=== PATIENT | female | born 1930 | race Caucasian/White ===

== ENCOUNTER 2016-12-18 11:48 | Inpatient (IN) | payer MEDICARE ==
[~2016-12-18] VITALS: Ht 170.2 cm; Wt 83.0 kg
[2016-12-18] VITALS (8 sets, daily range): BP systolic 87–173; BP diastolic 51–72; PULSE 61–71; RESP 16–20; TEMP 97.7–98; O2SAT 94–99
[~2016-12-18 11:48] MED LIST: ECASA PO; LEVO125T3 PO; LISI-363 PO; LOMO PO; OCUV PO; PRO-CAP PO; PROT40TA PO; REST0.05 OU; ROSU40 PO; VENL37.5 PO
[2016-12-18] MEDS ORDERED: SODIUM CHLORID 0.9% 500 ML INJ 500 ML IV ONE (12:00)
[2016-12-18] MEDS ORDERED: SODIUM CHLORIDE 0.9% FLUSH 10 ML FLUSH IVF PRN (12:00)
--- NOTE | 2016-12-18 12:06 | PD ---
HPI Chief Complaint: syncopal episode Time Seen by Provider: 12:02 Travel History International Travel<30 days: No Contact w/Intl Traveler<30days: No Traveled to known affect area: No History of Present Illness HPI 86-year-old female presents to the emergency department via EMS status post syncopal episode this morning. Patient states she woke this morning and had to go to the bathroom and when she went up to go to felt weak and dizzy and reportedly had a few second episode of nonresponsiveness. Patient states as long as she is laying flat she feels fine. Patient has a history of TIA and pacemaker. Patient denies pain, fever, chills, or other constitutional symptoms currently. Patient states she felt somewhat weak yesterday afternoon, and slept well through the night. She states she tries to sit up or stand up she feels weak and lightheaded. He is currently having no symptoms laying in the bed. She has no known drug allergies. PFSH Past Medical History Arthritis: Yes (L ANKLE FLARE UP 2 WKS AGO) Blood Disorders: No Anxiety: No Depression: No Cancer: No Cardiovascular Problems: Yes (STENTS) High Cholesterol: Yes Chemotherapy: No Congestive Heart Failure: No Diminished Hearing: No Endocrine: Yes Gastrointestinal Disorders: No Genitourinary: No Immune Disorder: No Musculoskeletal: Yes Neurologic: No Psychiatric: No Respiratory: No Radiation Therapy: No Thyroid Disease: Yes (HYPOTHYROIDISM) Menopausal: Yes Past Surgical History Abdominal Surgery: No AICD: No Cardiac Surgery: No Ear Surgery: No Endocrine Surgery: No Eye Surgery: No Genitourinary Surgery: No Gynecologic Surgery: No Joint Replacement: No Oral Surgery: No Pacemaker: No Thoracic Surgery: No Social History Alcohol Use: Yes (1-2 DRINKS DAILY) Tobacco Use: No Substance Use: No Allergies-Medications (Allergen,Severity, Reaction): Coded Allergies: No Known Allergies (Verified , 12/18/16) Reported Meds & Prescriptions Reported Meds & Active Scripts Active Reported Eliquis (Apixaban) 5 Mg Tab 5 Mg PO BID Probiotic (Lactobacillus Acidophilus) 1 Cap Cap 1 Cap PO DAILY Metoprolol Tartrate 25 Mg Tab 25 Mg PO BID Aspirin 81 Mg Tabdr 81 Mg PO DAILY Crestor (Rosuvastatin Calcium) 20 Mg Tab 20 Mg PO DAILY Restasis Opth 0.05% (Cyclosporine Opth 0.05%) 0.05% Emul 1 Drop EACH EYE BID Effexor (Venlafaxine HCl) 75 Mg Tab 75 Mg PO DAILY Synthroid (Levothyroxine Sodium) 125 Mcg Tab 125 Mcg PO DAILY Review of Systems Except as stated in HPI: all other systems reviewed are Neg General / Constitutional: No: Fever Eyes: No: Visual changes HENT: No: Headaches Cardiovascular: No: Chest Pain or Discomfort Respiratory: No: Shortness of Breath Gastrointestinal: No: Abdominal Pain Genitourinary: No: Dysuria Musculoskeletal: No: Pain Skin: No Rash Neurologic: No: Weakness Psychiatric: No: Depression Endocrine: No: Polydipsia Hematologic/Lymphatic: No: Easy Bruising Physical Exam Narrative GENERAL: Patient appears in no acute distress. SKIN: Warm and dry. Normal color. Normal turgor. HEAD: Atraumatic. Normocephalic. EYES: Pupils equal and round. No scleral icterus. No injection or drainage. ENT: No nasal bleeding or discharge. Mucous membranes pink and moist. Pharynx is clear. NECK: Trachea midline. No JVD. Supple nontender. CARDIOVASCULAR: Regular rate and rhythm. No murmurs gallops or rubs. RESPIRATORY: No accessory muscle use. Clear to auscultation. Breath sounds equal bilaterally. GASTROINTESTINAL: Abdomen soft, non-tender, nondistended. Hepatic and splenic margins not palpable. MUSCULOSKELETAL: Extremities without clubbing, cyanosis, or edema. No obvious deformities. NEUROLOGICAL: Awake and alert. No obvious cranial nerve deficits. Motor grossly within normal limits. Five out of 5 muscle strength in the arms and legs. Normal speech. PSYCHIATRIC: Appropriate mood and affect; insight and judgment normal. Data Data Last Documented VS Vital Signs Date Time Temp Pulse Resp B/P Pulse Ox O2 Delivery O2 Flow Rate FiO2 12/18/16 12:05 16 99 Room Air 12/18/16 12:05 69 138/64 72 138/67 68 87/51 12/18/16 11:59 97.8 Orders Electrocardiogram (12/18/16 11:59) Complete Blood Count With Diff (12/18/16 11:59) Comprehensive Metabolic Panel (12/18/16 11:59) Magnesium (Mg) (12/18/16 11:59) B-Type Natriuretic Peptide (12/18/16 11:59) Ckmb (Isoenzyme) Profile (12/18/16 11:59) Troponin I (12/18/16 11:59) Act Partial Throm Time (Ptt) (12/18/16 11:59) Prothrombin Time / Inr (Pt) (12/18/16 11:59) Urinalysis - C+S If Indicated (12/18/16 11:59) Chest, Single Ap (12/18/16 11:59) Ct Brain W/O Iv Contrast(Rout) (12/18/16 11:59) Ecg Monitoring (12/18/16 11:59) Iv Access Insert/Monitor (12/18/16 11:59) Oximetry (12/18/16 11:59) Sodium Chloride 0.9% Flush (Ns Flush) (12/18/16 12:00) Orthostatic Vital Signs (12/18/16 11:59) Sodium Chlorid 0.9% 500 Ml Inj (Ns 500 M (12/18/16 12:00) CKMB (12/18/16 12:11) CKMB% (12/18/16 12:11) Labs Laboratory Tests Test 12/18/16 12:11 White Blood Count 10.8 TH/MM3 Red Blood Count 3.07 MIL/MM3 Hemoglobin 9.5 GM/DL Hematocrit 28.3 % Mean Corpuscular Volume 92.4 FL Mean Corpuscular Hemoglobin 30.8 PG Mean Corpuscular Hemoglobin 33.4 % Concent Red Cell Distribution Width 17.3 % Platelet Count 327 TH/MM3 Mean Platelet Volume 8.2 FL Neutrophils (%) (Auto) 83.1 % Lymphocytes (%) (Auto) 11.7 % Monocytes (%) (Auto) 3.7 % Eosinophils (%) (Auto) 0.7 % Basophils (%) (Auto) 0.8 % Neutrophils # (Auto) 9.0 TH/MM3 Lymphocytes # (Auto) 1.3 TH/MM3 Monocytes # (Auto) 0.4 TH/MM3 Eosinophils # (Auto) 0.1 TH/MM3 Basophils # (Auto) 0.1 TH/MM3 CBC Comment DIFF FINAL Differential Comment Prothrombin Time 11.4 SEC Prothromb Time International 1.0 RATIO Ratio Activated Partial 22.7 SEC Thromboplast Time Sodium Level 139 MEQ/L Potassium Level 4.8 MEQ/L Chloride Level 105 MEQ/L Carbon Dioxide Level 22.0 MEQ/L Anion Gap 12 MEQ/L Blood Urea Nitrogen 77 MG/DL Creatinine 2.00 MG/DL Estimat Glomerular Filtration 24 ML/MIN Rate Random Glucose 128 MG/DL Calcium Level 8.3 MG/DL Magnesium Level 2.2 MG/DL Total Bilirubin 0.3 MG/DL Aspartate Amino Transf 16 U/L (AST/SGOT) Alanine Aminotransferase 18 U/L (ALT/SGPT) Alkaline Phosphatase 80 U/L Total Creatine Kinase 304 U/L Creatine Kinase MB 13.4 NG/ML Creatine Kinase MB % 4.4 % Troponin I 0.04 NG/ML B-Type Natriuretic Peptide 101 PG/ML Total Protein 6.6 GM/DL Albumin 3.7 GM/DL MDM Medical Decision Making Medical Screen Exam Complete: Yes Emergency Medical Condition: Yes Differential Diagnosis Syncopal episode. Cardiac syndrome. Pacemaker issue. Anemia. Dehydration. TIA. Narrative Course Patient is medically stable at time of exam. Labs ordered including CBC, CMP, cardiac panel, coagulation studies, and urinalysis. EKG, chest x-ray, are ordered. IV access is obtained patient is given a 500 mL normal saline bolus. We will call for interrogation of the pacemaker. Pacemaker was ruled normal without incident. CBC shows mild anemia which is her baseline. CMP shows a feeling of 77 and a creatinine of 2.0 is elevated from previous which was 1.30. Total draining kinase is 304. CK-MB is 13.4, and percent is 4.4. Troponin is 0.04. BNP is 101. Chest x-ray shows no acute process. EKG shows a normal paced rhythm without significant changes. CT shows no acute changes per radiologist. Patient discussed with Dr. Maldonado who recommends admission due to the patient' s increased creatinine, bump in her CK-MB, and witnessed syncopal episode. Patient was discussed with Dr. Fish, who agreed to admit the patient to observation. Diagnosis Primary Impression: Syncope Qualified Code: R55 - Syncope, unspecified syncope type Admitting Information Admitting Physician Requests: Observation Condition: Stable Garo Arevalo December 18, 2016 12:06
[2016-12-18] MEDS ORDERED: ROSU20 PO (12:09)
[2016-12-18] MEDS ORDERED: LACTCAP8 PO (12:09)
[2016-12-18] MEDS ORDERED: LEVO.125 PO (12:09)
[2016-12-18] MEDS ORDERED: VENL75TA PO (12:09)
[2016-12-18] MEDS ORDERED: REST0.05 EACH EYE (12:09)
[2016-12-18] MEDS ORDERED: ASPI1TAB69 PO (12:09)
[2016-12-18] MEDS ORDERED: METO25TA3 PO (12:09)
[2016-12-18] MEDS ORDERED: APIX5TAB PO (12:12)
[2016-12-18 12:30] LABS: BASOPHIL # 0.1 TH/MM3 (0-0.2); BASOPHIL % 0.8 % (0.0-2.0); EOSINOPHIL # 0.1 TH/MM3 (0-0.4); EOSINOPHIL % 0.7 % (0.0-4.0); HEMATOCRIT 28.3 % (35.0-46.0); HEMO FLAGS DIFF FINAL; LYMPH % 11.7 % (9.0-44.0); LYMPHOCYTE # 1.3 TH/MM3 (1.0-4.8); MEAN CELL VOLUME 92.4 FL (80.0-100.0); MEAN CORPUSCULAR HEMOGLOBIN 30.8 PG (27.0-34.0); MEAN CORPUSCULAR HGB CONC 33.4 % (32.0-36.0); MONO % 3.7 % (0.0-8.0); NEUT % 83.1 % (16.0-70.0); PLATELET COUNT 327 TH/MM3 (150-450); RED BLOOD COUNT 3.07 MIL/MM3 (4.00-5.30); RED CELL DISTRIBUTION WIDTH 17.3 % (11.6-17.2); WHITE BLOOD COUNT 10.8 TH/MM3 (4.0-11.0)
[2016-12-18 12:37] LABS: ANION GAP 12 MEQ/L (5-15); AST (GOT) 16 U/L (15-37); BLOOD UREA NITROGEN 77 MG/DL (7-18); CHLORIDE 105 MEQ/L (98-107); GLOMERULAR FILTRATION RATE 24 ML/MIN (>89); MAGNESIUM 2.2 MG/DL (1.5-2.5); POTASSIUM 4.8 MEQ/L (3.5-5.1); SODIUM (NA) 139 MEQ/L (136-145)
--- NOTE | 2016-12-18 12:38 | RADRPT ---
EXAM DATE/TIME: 12/18/2016 12:08 [facility] COMPARISON: CHEST SINGLE AP, January 19, 2015, 21:23. INDICATIONS : Syncope, short of breath. MEDICAL HISTORY : Myocardial infarction. SURGICAL HISTORY : Coronary artery stent. Pacemaker. ENCOUNTER: Initial ACUITY: 1 day PAIN SCORE: 0/10 LOCATION: Bilateral chest FINDINGS: A single view of the chest demonstrates the lungs to be symmetrically aerated without evidence of mas s, infiltrate or effusion. The cardiomediastinal contours are unremarkable. Osseous structures are intact. A bipolar pacemaker is in place via a left sided approach. CONCLUSION: 1. No acute cardiopulmonary disease. Jeronimo Villanueva MD on December 18, 2016 at 12:36 Board Certified Radiologist. This report was verified electronically.
[2016-12-18 12:42] LABS: ALKALINE PHOSPHATASE 80 U/L (45-117); ALT (GPT) 18 U/L (10-53); CREATINE KINASE 304 U/L (26-192); TOTAL BILIRUBIN ADULT 0.3 MG/DL (0.2-1.0)
[2016-12-18 12:50] LABS: APTT (PATIENT) 22.7 SEC (24.3-30.1); PROTHROMBIN TIME - PATIENT 11.4 SEC (9.8-11.6)
[2016-12-18 12:54] LABS: CKMB 13.4 NG/ML (0.5-3.6)
--- NOTE | 2016-12-18 13:38 | RADRPT ---
EXAM DATE/TIME: 12/18/2016 12:59 [facility] COMPARISON: CT BRAIN W/O CONTRAST, January 19, 2015, 21:53. INDICATIONS : Dizziness with syncope. RADIATION DOSE: 56.77 CTDIvol (mGy) MEDICAL HISTORY : Cardiovascular disease. SURGICAL HISTORY : None. ENCOUNTER: Initial ACUITY: 1 day PAIN SCALE: 3/10 LOCATION: Bilateral cranial TECHNIQUE: Multiple contiguous axial images were obtained of the head. Using automated exposure control and adj ustment of the mA and/or kV according to patient size, radiation dose was kept as low as reasonably a chievable to obtain optimal diagnostic quality images. 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 The ventricles are normal for age. No evidence of midline shift, mass lesion, hemorrhage or acute infarction. No extra-axial fluid collections are se en. Stable hypodensities in the deep white matter tracks in the right frontal lobe unchanged POSTERIOR FOSSA: The cerebellum and brainstem are intact. The 4th ventricle is midline. The cerebellopontine angle i s unremarkable. EXTRACRANIAL: The visualized portion of the orbits is intact. SKULL: The calvaria is intact. No evidence of skull fracture. CONCLUSION: Normal examination except for old right lacunar infarct. Stable hypodensities in the deep white matte r tracks in the right frontal lobe unchanged. Anival Plunkett MD on December 18, 2016 at 13:35 Board Certified Radiologist. This report was verified electronically.
--- NOTE | 2016-12-18 14:05 | HHI.HP ---
[facility] Service Family Medicine Primary Care Physician Candelaria Almendarez MD Admission Diagnosis Syncope/Dehydration Diagnoses: International Travel<30 Days: No Contact w/Intl Traveler<30days: No Known Affected Area: No History of Present Illness Patient is an 86-year-old female with a past medical history of CAD status post 3 stents, A. fib status post pacemaker, hypertension, hypothyroidism , macular degeneration, CKD, TIA in 2015, and depression that presents to the [place] ED with a chief complaint of syncope that happened this morning around 7 AM. Patient states that she has not felt herself for the last 2 weeks. 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 Around 7 AM this morning she got up to go to the bathroom but was very lightheaded and felt like she would pass out. Her at the bedside stated that she almost fell backwards, her eyes rolled up to the top of her head, and she was not responsive for 30 seconds to 1 minutes. She was also very clammy and sweaty during this time. He denied observing seizure symptoms. He was able to get her to the bathroom and back to the bed. She slept until 10 AM and when she woke up she said that she needed to go to the bathroom but was not strong enough to walk. He eventually got had there and back to bed. He called her doctor who asked him to bring her to the ED. He could not get her into the car so he called a [facility] to bring her to the hospital. Patient states that she is very weak and gets out of breath with simple activities like making the bed. She has not been eating well but has been trying to drink 3-48 ounce glasses of water daily. She agrees that she might be dehydrated. (EkoIvana MD R1) Review of Systems Constitutional: COMPLAINS OF: Fatigue, Weight loss, DENIES: Fever, Chills Endocrine: COMPLAINS OF: Heat/cold intolerance Eyes: COMPLAINS OF: Blurred vision (from macular degeneration), Vision loss Ears, nose, mouth, throat: COMPLAINS OF: Running Nose (Intermittent), DENIES: Nasal discharge Respiratory: COMPLAINS OF: Cough (Periodically since she had pneumonia and the flu in October), Shortness of breath (with exertion such as making the bed) Cardiovascular: COMPLAINS OF: Chest pain Gastrointestinal: COMPLAINS OF: Diarrhea (Normally once to twice daily. Always loose), DENIES: Abdominal pain, Nausea, Vomiting Genitourinary: DENIES: Urinary frequency, Dysuria Musculoskeletal: DENIES: Joint pain, Muscle aches Integumentary: DENIES: Pruritus, Rash Neurologic: DENIES: Headache, Seizures Psychiatric: COMPLAINS OF: Depression, DENIES: Suicidal Ideation, Homicidal Ideation (due to medical condition) (Ivana Nichols MD R1) Past Family Social History Past Medical History CAD status post 3 stents A. fib status post pacemaker CKD TIA in 2015 Hypertension Macular degeneration Hypothyroidism Depression Past Surgical History Stent placements Reported Medications Reported Meds & Active Scripts Active Reported Eliquis (Apixaban) 5 Mg Tab 5 Mg PO BID Probiotic (Lactobacillus Acidophilus) 1 Cap Cap 1 Cap PO DAILY Metoprolol Tartrate 25 Mg Tab 25 Mg PO BID Aspirin 81 Mg Tabdr 81 Mg PO DAILY Crestor (Rosuvastatin Calcium) 20 Mg Tab 20 Mg PO DAILY Restasis Opth 0.05% (Cyclosporine Opth 0.05%) 0.05% Emul 1 Drop EACH EYE BID Effexor (Venlafaxine HCl) 75 Mg Tab 75 Mg PO DAILY Synthroid (Levothyroxine Sodium) 125 Mcg Tab 125 Mcg PO DAILY (Ivana Nichols MD R1) Allergies: Coded Allergies: No Known Allergies (Verified , 12/18/16) Family History Daughter has diabetes Parents had heart disease Social History Lives at home with Denies smoking Has 1-3 glasses of wine daily Denies any drug use Has 14 biological children and 6 stepchildren 49 grandchildren and 30 great-grandchildren between she and her spouse (Ivana Nichols MD R1) Physical Exam Vital Signs Vital Signs Date Time Temp Pulse Resp B/P Pulse Ox O2 Delivery O2 Flow Rate FiO2 12/18/16 13:56 97.8 68 17 129/61 99 Room Air 12/18/16 12:05 16 99 Room Air 12/18/16 12:05 69 16 138/64 72 16 138/67 68 18 87/51 12/18/16 12:00 71 16 99 Room Air 12/18/16 11:59 97.8 71 16 133/61 99 Physical Exam GENERAL: This is a well-nourished, well-developed patient, in no apparent distress. SKIN: No rashes, ecchymoses or lesions. Some bruising with dry skin of lower extremities bilaterally. Cold feet. HEAD: Atraumatic. Normocephalic. No temporal or scalp tenderness. EYES: Pupils equal round and reactive. Extraocular motions intact. No scleral icterus. Redness of scleral right eye. ENT: Nose without bleeding, purulent drainage or septal hematoma. Moist mucous membranes. Throat without erythema, tonsillar hypertrophy or exudate. Uvula midline. Airway patent. NECK: Trachea midline. No JVD or lymphadenopathy. Supple, nontender, no meningeal signs. CARDIOVASCULAR: Regular rate and rhythm without murmurs, gallops, or rubs. RESPIRATORY: Clear to auscultation. Breath sounds equal bilaterally. No wheezes , rales, or rhonchi. GASTROINTESTINAL: Abdomen soft, non-tender, nondistended. No hepato-splenomegaly , or palpable masses. No guarding. MUSCULOSKELETAL: Extremities without clubbing, cyanosis, or edema. No joint tenderness, effusion, or edema noted. No calf tenderness. Negative Homans sign bilaterally. NEUROLOGICAL: Awake and alert. Cranial nerves II through XII intact. Motor and sensory grossly within normal limits. Five out of 5 muscle strength in all muscle groups. Normal speech. Laboratory Laboratory Tests Test 12/18/16 12:11 White Blood Count 10.8 Red Blood Count 3.07 Hemoglobin 9.5 Hematocrit 28.3 Mean Corpuscular Volume 92.4 Mean Corpuscular Hemoglobin 30.8 Mean Corpuscular Hemoglobin 33.4 Concent Red Cell Distribution Width 17.3 Platelet Count 327 Mean Platelet Volume 8.2 Neutrophils (%) (Auto) 83.1 Lymphocytes (%) (Auto) 11.7 Monocytes (%) (Auto) 3.7 Eosinophils (%) (Auto) 0.7 Basophils (%) (Auto) 0.8 Neutrophils # (Auto) 9.0 Lymphocytes # (Auto) 1.3 Monocytes # (Auto) 0.4 Eosinophils # (Auto) 0.1 Basophils # (Auto) 0.1 CBC Comment DIFF FINAL Differential Comment Prothrombin Time 11.4 Prothromb Time International 1.0 Ratio Activated Partial 22.7 Thromboplast Time Sodium Level 139 Potassium Level 4.8 Chloride Level 105 Carbon Dioxide Level 22.0 Anion Gap 12 Blood Urea Nitrogen 77 Creatinine 2.00 Estimat Glomerular Filtration 24 Rate Random Glucose 128 Calcium Level 8.3 Magnesium Level 2.2 Total Bilirubin 0.3 Aspartate Amino Transf 16 (AST/SGOT) Alanine Aminotransferase 18 (ALT/SGPT) Alkaline Phosphatase 80 Total Creatine Kinase 304 Creatine Kinase MB 13.4 Creatine Kinase MB % 4.4 Troponin I 0.04 B-Type Natriuretic Peptide 101 Total Protein 6.6 Albumin 3.7 (Ivana Nichols MD R1) Result Diagram: 12/18/16 1211 12/18/16 1211 Imaging Last Impressions Head CT 12/18/16 1159 Signed Impressions: Service Date/Time: December 12:59 - CONCLUSION: Normal examination except for old right lacunar infarct. Stable hypodensities in the deep white matter tracks in the right frontal lobe unchanged. Anival Plunkett MD Chest X-Ray 12/18/16 1159 Signed Impressions: Service Date/Time: , December 18, 2016 12:08 - CONCLUSION: 1. No acute cardiopulmonary disease. Jeronimo Villanueva MD Carotid Artery Ultrasound 12/18/16 0000 Signed Impressions: Service Date/Time: December 19:43 - CONCLUSION: Negative examination for a hemodynamically significant carotid stenosis. Perry Han MD (Iavna Nichols MD R1) Assessment and Plan Assessment and Plan Patient is an 86-year-old female with a past medical history of CAD status post 3 stents, A. fib status post pacemaker, hypertension, hypothyroidism , CKD, TIA in 2014, and depression that presents to the [facility] ED with a chief complaint of syncope in the setting of at least 2 weeks of fatigue and poor by mouth intake. Orthostatic vital signs were positive in the ED. Concern is for dehydration but need to rule out cardiac course of syncope, seizure, arrhythmia , UTI, pneumonia. Code Status Full code - however patient does not want prolonged life saving measures. Okay to perform CPR or intubation for a short period of time unless there is clear benefit. Discussed Condition With Discussed with Dr. Fish, PGY-2 (Ivana Nichols MD R1) Attending Attestation THIS CASE WAS DISCUSSED WITH THE RESIDENT PHYSICIAN. I HAVE REVIEWED THE RECORD AND AGREE WITH THE ABOVE NOTE AND PLAN OF CARE WAS DISCUSSED. I HAVE AUTHORIZED THE ORDER FOR PLACEMENT IN OUT-PATIENT OBSERVATION STATUS. (Jamie Bergman MD) Problem List: (1) Syncope Status: Acute Plan: -Acute onset of syncope in the setting of about 2 weeks of weakness -Positive orthostatic hypotension from sitting to standing position: 138/67-87/ 51 -Will repeat orthostatic vital signs in the a.m. 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 infarct -Chest x-ray negative for acute cardiopulmonary process -EKG performed shows electronically paced rhythm with heart rate of 66, no signs of ACS -Repeat EKG every 6 hours 2 pending -Initial troponin WNL at 0.04, repeat troponin every 6 hours 2 pending -CK-MB elevated at 13.4, repeat CK-MB every 6 hours 2 pending -BNP close to high limit of normal at 101 [reference range 0-100] -Carotid ultrasound pending -Echo pending -EEG pending -Patient received 500 mL bolus in the ED -Urinalysis with reflex culture pending - patient does not feel the urge to urinate at this time (2) CKD (chronic kidney disease) Status: Acute Plan: -Creatinine 2.12 in ED with no baseline available comparison -GFR of 24 places patient in stage IV -Patient reports being told that she has chronic kidney disease -She does not have a marketing development manager - on board will recommend outpatient evaluation by marketing development manager -Due to possibility of AMELIE, will run normal saline at 100 mL per hour -Consider nephrology consult and kidney ultrasound if worsens overnight (3) Dehydration Status: Acute Plan: -Patient and spouse reports not eating much and not drinking enough water -She does not appear dehydrated on exam but is not making much urine -Received 500 mL bolus in the ED -Will start normal saline at 100 mL's per hour and watch for signs of congestive heart failure (4) Chronic anemia Status: Acute Plan: -Pt reports history of anemia -H/H was 9.5/28.3 on admission -Will monitor closely and transfuse if <8 considering that pt is already symptomatic (5) Chronic Medical Problems Status: Acute Plan: AFIB: Pacemaker was interrogated in the ED and was found to be working properly. Continue Eliquis Hypertension: Hold Metoprolol due to syncope Hypothyroidism: Continue home levothyroxine 125 mcg daily. Will check TSH level Hyperlipidemia: Continue Crestor 20 mg PO daily CAD: Aspirin 81mg daily Depression: Continue Venlafaxine 75mg PO daily (6) FEN/DVT PPX/GI PPX/Standard Orders Status: Acute Plan: Fluids: NS @100 mls/hr IV Electrolytes: Will monitor and replace as needed Nutrition: Heart-healthy diet DVT Prophylaxis: Patient on Eliquis GI Prophylaxis: None indicated -Monitor I's and O's -Fall precautions -matrix supervisor with telemetry -Continuous vital signs - Activity OOB with assistance Disposition: Pending evaluation and resolution of syncope, possibly in 23 hours (Ivana Nichols MD R1) Problem Qualifiers (1) Syncope: Qualified Code: R55 - Syncope, unspecified syncope type (2) CKD (chronic kidney disease): Qualified Code: N18.4 - Stage 4 chronic kidney disease Ivana Nichols MD R1 December 18, 2016 14:05 Jamie Bergman MD December 19, 2016 13:19
[2016-12-18] MEDS ORDERED: SODIUM CHLORIDE 0.9% FLUSH 10 ML FLUSH IV FLUSH PRN (14:30)
[2016-12-18] MEDS: CYCLOSPORINE EACH EYE SCH ×2 (14:45→20:16)
[2016-12-18] MEDS: SODIUM CHLORIDE 0.9% FLUSH 10 ML FLUSH IV FLUSH SCH ×2 (14:48→20:16)
[2016-12-18] MEDS: LEVOTHYROXINE SODIUM 125 MCG TAB PO SCH (14:53)
[2016-12-18] MEDS: SODIUM CHLOR 0.9% 1000 ML INJ 1,000 ML IV SCH (14:54)
[2016-12-18 16:07] LABS: CKMB 12.5 NG/ML (0.5-3.6)
[2016-12-18 17:43] LABS: BACTERIA, URINE OCC /hpf; BLOOD, URINE MOD (NEG); GLUCOSE,URINE NEG (NEG); KETONE, URINE NEG (NEG); MUCUS URINE FEW /lpf (OCC); NITRITE,URINE NEG (NEG); SQUAMOUS EPITHELIAL CELL URINE 4 /hpf (0-5); URINE COLOR YELLOW (YELLW/STRAW)
[2016-12-18 17:46] LABS: COMMENT (UR) CULT NOT INDICATED; CULTURE IF INDICATED CULT NOT INDICATED
--- NOTE | 2016-12-18 17:46 | MG ---
cc: GUEVARA CHIRINOS Lab No:[id number] Date: 12/18/2016 Age: Sex: F Race: Cc. TECHNIQUE 17 channel EEG. DESCRIPTION Background rhythm reveals symmetrical alpha rhythm frequency is 8-9 Hz amplitude is about 20 microvolts. There are no lateralizing features identified. No epileptiform features are seen. There is occasional muscle artifact. Occasional slowing is seen in the theta frequency or during periods of drowsiness. Photic stimulation was done with a normal driving response. There was an episode of right arm twitching identified but there was no epileptiform activity in the EEG. INTERPRETATION This is a normal electroencephalogram. MD ELIZABETH Crandall/ebony /5:32 PM /5:40 PM
--- NOTE | 2016-12-18 20:31 | RADRPT ---
EXAM DATE/TIME: 12/18/2016 19:43 [facility] COMPARISON: US CAROTID ARTERIES, January 20, 2015, 7:55. INDICATIONS : Syncope. MEDICAL HISTORY : Hypothyroidism. Myocardial infarction. Anticoagulant therapy. Dyspnea. Arthri tis. Fatigue. SURGICAL HISTORY : Coronary stents. Pacemakers. ENCOUNTER: Initial ACUITY: 1 day PAIN SCORE: 0/10 LOCATION: Bilateral neck PEAK SYSTOLIC VELOCITIES (cm/sec): ICA/CCA RATIO: Right: 0.7 Left: 1.0 ICA: Right: 65 Left: 97 CCA: Right: 95 Left: 102 ECA: Right: 106 Left: 81 VERTEBRAL: Right: 33 antegrade Left: 112 antegrade Elevated flow velocities and ICA/CCA ratios have been found to correlate with increased degrees of vessel stenosis, calculated as percentage of diameter relative to a normal segment of distal ICA/CCA FINDINGS: RIGHT CAROTID: There is no evidence for a hemodynamically significant carotid stenosis. Minimal int imal hyperplasia is present with scattered calcific plaque. LEFT CAROTID: There is no evidence for a hemodynamically significant carotid stenosis. Minimal inti mal hyperplasia is present with scattered calcific plaque. VERTEBRAL ARTERIES: Flow is antegrade in both vertebral arteries. MISCELLANEOUS: There are no ancillary masses or adenopathy. CONCLUSION: Negative examination for a hemodynamically significant carotid stenosis. Perry Han MD FACR Board Certified Radiologist. This report was verified electronically.
[2016-12-18] MEDS ORDERED: APIXABAN 5 MG TABLET PO SCH (21:00)
[2016-12-18 23:46] LABS: CKMB 11.4 NG/ML (0.5-3.6)
[2016-12-19] VITALS (10 sets, daily range): BP systolic 121–179; BP diastolic 56–73; PULSE 60–86; RESP 16–22; TEMP 97.5–98.5; O2SAT 96–100
[2016-12-19] MEDS: SODIUM CHLOR 0.9% 1000 ML INJ 1,000 ML IV SCH ×3 (00:41→21:23)
[2016-12-19] MEDS: LEVOTHYROXINE SODIUM 125 MCG TAB PO SCH (05:16)
[2016-12-19 05:51] LABS: AUTOMATED NEUTROPHIL # 5.4 TH/MM3 (1.8-7.7); BASOPHIL # 0.1 TH/MM3 (0-0.2); BASOPHIL % 0.8 % (0.0-2.0); EOSINOPHIL # 0.2 TH/MM3 (0-0.4); EOSINOPHIL % 2.2 % (0.0-4.0); HEMATOCRIT 22.4 % (35.0-46.0); HEMO FLAGS DIFF FINAL; LYMPH % 20.8 % (9.0-44.0); LYMPHOCYTE # 1.6 TH/MM3 (1.0-4.8); MEAN CELL VOLUME 94.2 FL (80.0-100.0); MEAN CORPUSCULAR HGB CONC 32.9 % (32.0-36.0); MONO % 5.4 % (0.0-8.0); NEUT % 70.8 % (16.0-70.0); PLATELET COUNT 255 TH/MM3 (150-450); RED BLOOD COUNT 2.37 MIL/MM3 (4.00-5.30); RED CELL DISTRIBUTION WIDTH 17.4 % (11.6-17.2); WHITE BLOOD COUNT 7.7 TH/MM3 (4.0-11.0)
[2016-12-19 06:30] LABS: ALKALINE PHOSPHATASE 66 U/L (45-117); ALT (GPT) 16 U/L (10-53); ANION GAP 11 MEQ/L (5-15); AST (GOT) 18 U/L (15-37); BLOOD UREA NITROGEN 69 MG/DL (7-18); CHLORIDE 112 MEQ/L (98-107); CREATINE KINASE 258 U/L (26-192); GLOMERULAR FILTRATION RATE 25 ML/MIN (>89); POTASSIUM 4.3 MEQ/L (3.5-5.1); SODIUM (NA) 144 MEQ/L (136-145); TOTAL BILIRUBIN ADULT 0.2 MG/DL (0.2-1.0)
[2016-12-19 06:43] LABS: CKMB 12.1 NG/ML (0.5-3.6)
[2016-12-19] MEDS ORDERED: SODIUM CHLOR 0.9% 250 ML INJ 250 ML IV ONE (07:15)
[2016-12-19] MEDS ORDERED: diphenhydrAMINE HCL 25 MG CAP PO PRN (07:15)
[2016-12-19] MEDS ORDERED: FUROSEMIDE 20 MG/2 ML VIAL IV PRN (07:15)
--- NOTE | 2016-12-19 08:22 | HHI.FPPN ---
Subjective Remarks FM Attending Note: Patient seen and examined. S: Chart and all resident physician notes reviewed. In summary this is a 86 year old female who was admitted with an admission diagnosis of Syncope/ Dehydration/weakness. This patient has a significant past history of coronary artery disease with a stenting procedure done at the first of this year. Around the time of this procedure the patient did have anemia for which she did require a transfusion. She also has atrial fibrillation with a pacemaker in place, hypertension, hypothyroidism, macular degeneration, chronic kidney disease, cerebrovascular disease with TIA in 2015 and depression. On the morning of admission the patient had noted a near syncopal episode when she had gotten up. She notes that she's had weakness over the last 2 weeks. At the time of her cardiac stent in August of this year she had no other symptoms except fatigue. She had a cardiac workup which showed an apparent positive stress test and for this she underwent a cardiac catheterization. She does have a history of chronic anemia. She reports that she did have a GI evaluation within the last 1-2 years. Colonoscopy was unremarkable. She apparently had evidence of ulcer disease on her upper GI but has had no recent symptoms. She has been using 3 anticoagulants;: Eliquis, Plavix and aspirin. She has also been using Aleve for arthritic pain. No chest pain has been reported. Objective Vitals Vital Signs Date Time Temp Pulse Resp B/P Pulse Ox O2 Delivery O2 Flow Rate FiO2 12/19/16 07:51 97.6 60 22 135/61 100 12/19/16 00:00 97.7 70 20 124/59 100 12/18/16 21:29 21 12/18/16 20:06 97.7 70 19 141/65 99 111/55 12/18/16 20:00 64 12/18/16 18:31 61 12/18/16 16:26 97.9 69 20 173/72 94 12/18/16 15:05 98.0 67 17 149/72 99 12/18/16 13:56 97.8 68 17 129/61 99 Room Air 12/18/16 12:05 16 99 Room Air 12/18/16 12:05 69 16 138/64 72 16 138/67 68 18 87/51 12/18/16 12:00 71 16 99 Room Air 12/18/16 11:59 97.8 71 16 133/61 99 I/O 12/18/16 12/18/16 12/18/16 12/19/16 12/19/16 12/19/16 07:00 15:00 23:00 07:00 15:00 23:00 Intake Total 200 ml Balance 200 ml Intake Oral 200 ml # Bowel Movements 0 Result Diagram: 12/19/16 0541 12/19/16 0541 Other Results Item Value Date Time Troponin I 0.04 NG/ML 12/18/16 1211 B-Type Natriuretic Peptide 101 PG/ML H 12/18/16 1211 Troponin I 0.04 NG/ML 12/18/16 2258 Troponin I 0.05 NG/ML 12/19/16 0541 Thyroid Stimulating Hormone 3rd Gen 12.100 uIU/ML H 12/18/16 1500 Urine Specific [place] 1.017 12/18/16 1710 Urine Occult Blood MOD H 12/18/16 1710 Urine Nitrite NEG 12/18/16 1710 Urine Leukocyte Esterase NEG 12/18/16 1710 Urine RBC LESS THAN 1 /hpf 12/18/16 1710 Urine WBC 1 /hpf 12/18/16 1710 Imaging Last 48 hours Impressions Renal Ultrasound 12/19/16 0000 Signed Impressions: Service Date/Time: Monday, December 19, 2016 09:15 - CONCLUSION: 1. Unremarkable ultrasound examination of the kidneys. 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 Stable hypodensities in the deep white matter tracks in the right frontal lobe unchanged. Anival Plunkett MD Chest X-Ray 12/18/16 1159 Signed Impressions: Service Date/Time: December 12:08 - CONCLUSION: 1. No acute cardiopulmonary disease. Jeronimo Villanueva MD Carotid Artery Ultrasound 12/18/16 0000 Signed Impressions: Service Date/Time: December 19:43 - CONCLUSION: Negative examination for a hemodynamically significant carotid stenosis. Perry Han MD Objective Remarks O. CONSTITUTIONAL/GEN: normally nourished, in NAD. EYES: conjunctiva normal, PERRLA, EOMI. ENT: Mouth and pharynx normal. NECK: thyroid midline, carotids symmetrical. LUNGS: clear A-P, respiratory effort is normal. CARDIOVASCULAR: RR without murmur or gallop. No significant edema. GI/ABD: soft without masses, without organomegaly. NEURO: No focal deficits. Mild dizziness with standing. SKIN: color normal, no rashes noted. HEME/LYMPH: no bruising, petechia or significant adenopathy MUSC: back is normal in appearance. Extremities are normal in appearance. PSYCH/MENTAL STATUS: Alert and oriented x 3. A/P Assessment and Plan Patient is an 86-year-old female with a past medical history of CAD status post 3 stents, A. fib status post pacemaker, hypertension, hypothyroidism , CKD, TIA in 2015, and depression that presents to the [facility] ED with a chief complaint of syncope in the setting of at least 2 weeks of fatigue and poor by mouth intake. Orthostatic vital signs were positive in the ED. Concern is for dehydration but need to rule out cardiac course of syncope, seizure, arrhythmia , UTI, pneumonia. Problem List: (1) Syncope Status: Acute Plan: -Acute onset of syncope in the setting of about 2 weeks of weakness -Positive orthostatic hypotension from sitting to standing position: 138/67-87/ 51 -Will repeat orthostatic vital signs in the a.m. 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 infarct -Chest x-ray negative for acute cardiopulmonary process -EKG performed shows electronically paced rhythm with heart rate of 66, no signs of ACS -Repeat EKG every 6 hours 2 pending -Initial troponin WNL at 0.04, repeat troponin every 6 hours 2 pending -CK-MB elevated at 13.4, repeat CK-MB every 6 hours 2 pending -BNP close to high limit of normal at 101 [reference range 0-100] -Carotid ultrasound pending -Echo pending -EEG pending -Patient received 500 mL bolus in the ED -Urinalysis with reflex culture pending - patient does not feel the urge to urinate at this time 12/19/16 Findings of chronic kidney disease with somewhat worsening anemia. In a patient with coronary artery disease and symptomatic anemia we'll transfuse 2 units of packed red blood cells. I am suspicious that the anemia could be secondary to the use of several blood thinners along with [id number] Aleve. Since she had a coronary stent done earlier this year she probably should remain on Plavix. In view of her chronic kidney disease will decrease her dose of Eliquis. For now will stop the aspirin. A stool Hemoccult has been ordered but with the use of multiple medications that can thin her blood and cause gastric irritation I would not be surprised if this is positive. (2) CKD (chronic kidney disease) Status: Acute Plan: -Creatinine 2.12 in ED with no baseline available comparison -GFR of 24 places patient in stage IV -Patient reports being told that she has chronic kidney disease -She does not have a student liaison officer - on board will recommend outpatient evaluation by student liaison officer -Due to possibility of AMELIE, will run normal saline at 100 mL per hour -Consider nephrology consult and kidney ultrasound if worsens overnight 12/19/16 I did discuss with the patient the importance of protecting her kidneys from medications that can cause worsening kidney function. Have recommended that she avoid Advil or Aleve. If pain medications are needed she should take Tylenol. (3) Dehydration Status: Acute Plan: -Patient and spouse reports not eating much and not drinking enough water -She does not appear dehydrated on exam but is not making much urine -Received 500 mL bolus in the ED -Will start normal saline at 100 mL's per hour and watch for signs of congestive heart failure (4) Chronic anemia Status: Acute Plan: -Pt reports history of anemia -H/H was 9.5/28.3 on admission -Will monitor closely and transfuse if <8 considering that pt is already symptomatic 12/19/16 Patient is to be transfused due to symptomatic anemia in the presence of coronary artery disease. (5) Chronic Medical Problems Status: Acute Plan: AFIB: Pacemaker was interrogated in the ED and was found to be working properly. Continue Eliquis Hypertension: Hold Metoprolol due to syncope Hypothyroidism: Continue home levothyroxine 125 mcg daily. Will check TSH level Hyperlipidemia: Continue Crestor 20 mg PO daily CAD: Aspirin 81mg daily Depression: Continue Venlafaxine 75mg PO daily (6) FEN/DVT PPX/GI PPX/Standard Orders Status: Acute Plan: Fluids: NS @100 mls/hr IV Electrolytes: Will monitor and replace as needed Nutrition: Heart-healthy diet DVT Prophylaxis: Patient on Eliquis GI Prophylaxis: None indicated -Monitor I's and O's -Fall precautions -state's attorney with telemetry -Continuous vital signs - Activity OOB with assistance Disposition: Pending evaluation and resolution of syncope, possibly in 23 hours Problem Qualifiers (1) Syncope: Qualified Code: R55 - Syncope, unspecified syncope type (2) CKD (chronic kidney disease): Qualified Code: N18.4 - Stage 4 chronic kidney disease Jamie Bergman MD December 19, 2016 08:22
[2016-12-19] MEDS: ATORVASTATIN 40 MG TAB PO SCH (08:50)
[2016-12-19] MEDS: APIXABAN 5 MG TABLET PO SCH ×2 (08:53→21:23)
[2016-12-19] MEDS ORDERED: LEVOTHYROXINE SODIUM 25 MCG TAB PO ONE (09:00)
[2016-12-19] MEDS ORDERED: ASPIRIN EC 81 MG TABEC PO SCH (09:00)
[2016-12-19] MEDS: SODIUM CHLORIDE 0.9% FLUSH 10 ML FLUSH IV FLUSH SCH ×2 (09:00→21:23)
[2016-12-19] MEDS: CYCLOSPORINE EACH EYE SCH ×2 (09:00→21:00)
[2016-12-19] MEDS ORDERED: PNEUMOCOCCAL POLYVALENT INJ 25 MCG/0.5 ML SYR IM ONE (10:00)
--- NOTE | 2016-12-19 10:23 | EC ---
Study Study Date:12/19/2016 STUDY CONCLUSIONS SUMMARY - Left ventricle: The cavity size was normal. Wall thickness was normal. Systolic function was normal. The estimated ejection fraction was in the range of 55% to 60%. Wall motion was normal; there were no regional wall motion abnormalities. - Aortic valve: Valve area: 1.54cm^2 (Vmax). - Pericardium, extracardiac: A trivial pericardial effusion was identified. If LV function is below 40, please consider prescribing an ACEI or ARB or document rationale for non-use. PROCEDURE DATA STUDY STATUS: Elective. Procedure: Transthoracic echocardiography. Image quality was good. Scanning was performed from the parasternal, apical, and subcostal acoustic windows. Study completion: The patient tolerated the procedure well. Transthoracic echocardiography. M-mode, complete 2D, complete spectral Doppler, and color Doppler. Height: Height: 67in. Weight: Weight: 181.6lb. Body mass index: BMI: 28.5kg/m^2. Body surface area: BSA: 1.94m^2. Patient status: Inpatient. CARDIAC ANATOMY LEFT VENTRICLE: The cavity size was normal. Wall thickness was normal. Systolic function was normal. The estimated ejection fraction was in the range of 55% to 60%. Wall motion was normal; there were no regional wall motion abnormalities. AORTIC VALVE: Trileaflet; normal thickness leaflets. Doppler: Transvalvular velocity was within the normal range. There was no stenosis. No regurgitation. Valve area: 1.54cm^2 (Vmax). Indexed valve area: 0.79cm^2/m^2 (Vmax). AORTA: Aortic root: The aortic root was normal in size. MITRAL VALVE: Structurally normal valve. Doppler: Transvalvular velocity was within the normal range. There was no evidence for stenosis. No regurgitation. Peak gradient: 2mm Hg (D). LEFT ATRIUM: The atrium was normal in size. RIGHT VENTRICLE: The cavity size was normal. Wall thickness was normal. PULMONIC VALVE: Doppler: Transvalvular velocity was within the normal range. There was no evidence for stenosis. No regurgitation. TRICUSPID VALVE: Structurally normal valve. Doppler: Transvalvular velocity was within the normal range. No regurgitation. PULMONARY ARTERY: The main pulmonary artery was normal-sized. Systolic pressure was within the normal range. RIGHT ATRIUM: The atrium was normal in size. PERICARDIUM: A trivial pericardial effusion was identified. SYSTEMIC VEINS: Inferior vena cava: The vessel was normal in size. Patient weight: 181.6lb _Ejection fraction:_ 65-75% _Fractional shortening:_ 32% up to 5Kg 5-11.5Kg 11.6-22.9Kg 23-45Kg 45-57Kg Aortic Root 7-13 <17 13-22 17-27 17-27 LA diam 6-13 <23 24-38 33-47 37-40 RVID 10-17 7-15 7-15 7-18 8-17 LVIDd 12-22 <32 24-38 33-47 37-40 LVPW 2-4 3-6 5-7 6-8 7-8 IVS 2-4 3-6 5-7 6-8 7-8 BASIC MEASUREMENTS ADULT NORMAL Left ventricle LV internal dimension, ED, chordal *34.1 mm 43-52 level, PLAX LV internal dimension, ES, chordal 24.9 mm 23-38 level, PLAX Fractional shortening, chordal level, *27 % >29 PLAX LV posterior wall thickness, ED 9.88 mm IVS/LVPW ratio, ED 1.05 <1.3 Ventricular septum Septal thickness, ED 10.4 mm Aortic valve Leaflet separation 18 mm 15-26 BASIC MEASUREMENTS ADULT NORMAL Aortic valve Leaflet separation 18 mm 15-26 Aorta Root diameter, ED 22 mm 20-37 Left atrium Anterior-posterior dimension, ES 32 mm 19-40 Anterior-posterior dimension index, ES 1.65 cm/m^2 <2.2 LA/aortic root ratio 1.45 DOPPLER MEASUREMENTS ADULT NORMAL Main pulmonary artery Pressure, S 28 mm Hg =30 Aortic valve Peak velocity, S 129 cm/s Valve area, Vmax 1.54 cm^2 Valve area index, Vmax 0.79 cm^2/m^2 Mitral valve Peak E-wave velocity 79 cm/s Peak A-wave velocity 111 cm/s Deceleration time *306 ms 150-230 Peak gradient, D 2 mm Hg Peak E/A ratio 0.7 Tricuspid valve Regurgitant peak velocity 239 cm/s Peak RV-RA gradient, S 23 mm Hg Maximal regurgitant velocity 239 cm/s Systemic veins Estimated CVP 10 mm Hg Right ventricle RV pressure, S *33 mm Hg <30 Pulmonic valve Peak velocity, S 117 cm/s LEGEND: Mean values are shown as u=mean value. Asterisk (*) riddle values outside specified normal range. Prepared and signed by Colin Parra [id number]
--- NOTE | 2016-12-19 11:06 | RADRPT ---
EXAM DATE/TIME: 12/19/2016 09:15 [facility] COMPARISON: No previous studies available for comparison. INDICATIONS : Abnormal labs. MEDICAL HISTORY : Myocardial infarction. Hypercholesterolemia. Hypothyroidism. Arthritis. Shingles. SURGICAL HISTORY : Coronary artery stent. Pacemaker. ENCOUNTER: Initial ACUITY: 1 day PAIN SCORE: 2/10 LOCATION: Bilateral flank MEASUREMENTS: RIGHT KIDNEY: 8.5 x 4.3 x 5.9 cm LEFT KIDNEY: 7.8 x 3.8 x 4.0 cm FINDINGS: RIGHT KIDNEY: Renal cortex is normal in thickness and echotexture. No hydronephrosis, stone, or mass. LEFT KIDNEY: Renal cortex is normal in thickness and echotexture. No hydronephrosis, stone, or mass. BLADDER: Within normal limits given the degree of distension. CONCLUSION: 1. Unremarkable ultrasound examination of the kidneys. Jeronimo Villanuvea MD on December 19, 2016 at 11:04 Board Certified Radiologist. This report was verified electronically.
[2016-12-19 12:57] LABS: FREE T3 1.18 PG/ML (2.18-3.98); FREE T4 0.56 NG/DL (0.76-1.46)
--- NOTE | 2016-12-19 21:58 | EKG ---
Date Performed: 12/18/2016 Time Performed: 12:09:29 PTAGE: 86 years EKG: ELECTRONIC VENTRICULAR PACEMAKER ABNORMAL RHYTHM ECG PREVIOUS TRACING : 01/19/2015 22.23 Compared to the previous tracing pacemaker rhythm is new DOCTOR: Rex Smith Interpretating Date/Time 12/19/2016 21:57:47
[2016-12-19 22:07] LABS: HEMATOCRIT 31.3 % (35.0-46.0); REVIEW FLAG FINAL
[2016-12-20] VITALS: BP 191/81; PULSE 65; RESP 16; TEMP 96.9; O2SAT 99
[2016-12-20 04:00] VITALS: BP 179/77; PULSE 77; RESP 18; TEMP 96.8; O2SAT 98
[2016-12-20] MEDS: SODIUM CHLOR 0.9% 1000 ML INJ 1,000 ML IV SCH (05:33)
[2016-12-20 05:42] LABS: HEMATOCRIT 31.3 % (35.0-46.0); MEAN CELL VOLUME 91.7 FL (80.0-100.0); MEAN CORPUSCULAR HEMOGLOBIN 30.6 PG (27.0-34.0); MEAN CORPUSCULAR HGB CONC 33.3 % (32.0-36.0); PLATELET COUNT 232 TH/MM3 (150-450); RED BLOOD COUNT 3.41 MIL/MM3 (4.00-5.30); RED CELL DISTRIBUTION WIDTH 16.6 % (11.6-17.2); REVIEW FLAG FINAL; WHITE BLOOD COUNT 7.9 TH/MM3 (4.0-11.0)
[2016-12-20] MEDS ORDERED: LEVOTHYROXINE SODIUM 25 MCG TAB PO SCH ×2 (06:00→09:00)
[2016-12-20] MEDS ORDERED: LEVOTHYROXINE SODIUM 112 MCG TAB PO SCH ×2 (06:00→09:00)
[2016-12-20] MEDS ORDERED: LEVOTHYROXINE SODIUM 150 MCG TAB PO SCH (06:00)
[2016-12-20 06:03] LABS: BICARBONATE 21.5 MEQ/L (21.0-32.0); POTASSIUM 3.9 MEQ/L (3.5-5.1)
[2016-12-20 06:34] VITALS: PULSE 74
[2016-12-20 06:34] LABS: CKMB 16.4 NG/ML (0.5-3.6)
--- NOTE | 2016-12-20 07:10 | HHI.FPPN ---
Subjective Remarks Ms Fu is doing well this morning. She walked by herself to the bathroom and back without any lightheadedness. She is very excited that the lightheadedness is gone. She wants to go home. (Ivana Nichols MD R1) Objective Vitals Vital Signs Date Time Temp Pulse Resp B/P Pulse Ox O2 Delivery O2 Flow Rate FiO2 12/19/16 20:00 60 12/19/16 17:50 97.5 62 18 155/73 100 12/19/16 17:24 98.5 60 20 163/69 99 12/19/16 16:03 60 12/19/16 15:09 98.1 62 20 178/71 99 12/19/16 13:30 86 16 177/72 96 12/19/16 13:01 98.0 63 179/72 98 12/19/16 11:36 98.5 64 20 158/70 98 121/58 122/56 12/19/16 08:38 21 12/19/16 07:51 97.6 60 22 135/61 100 I/O 12/19/16 12/19/16 12/19/16 12/20/16 12/20/16 12/20/16 07:00 15:00 23:00 07:00 15:00 23:00 Intake Total 707 ml 1028 ml Balance 707 ml 1028 ml Intake Oral 240 ml IV Total 147 ml 788 ml Packed Cells 560 ml # Bowel Movements 0 0 (Ivana Nichols MD R1) Result Diagram: 12/20/1651612/20/16 0517 Objective Remarks O. CONSTITUTIONAL/GEN: normally nourished, in NAD. EYES: conjunctiva normal, PERRLA, EOMI. ENT: Mouth and pharynx normal. NECK: thyroid midline, carotids symmetrical. LUNGS: clear A-P, respiratory effort is normal. CARDIOVASCULAR: RR without murmur or gallop. No significant edema. GI/ABD: soft without masses, without organomegaly. NEURO: No focal deficits. No lightheadedness/dizziness with sitting or standing. SKIN: color normal, no rashes noted. HEME/LYMPH: no bruising, petechia or significant adenopathy MUSC: back is normal in appearance. Extremities are normal in appearance. PSYCH/MENTAL STATUS: Alert and oriented x 3. (Ivana Nichols MD R1) A/P Assessment and Plan Patient is an 86-year-old female with a past medical history of CAD status post 3 stents, A. fib status post pacemaker, hypertension, hypothyroidism , CKD, TIA in 2015, and depression that presents to the [facility] ED with a chief complaint of syncope in the setting of at least 2 weeks of fatigue and poor by mouth intake. Orthostatic vital signs were positive in the ED. Concern is for dehydration but need to rule out cardiac course of syncope, seizure, arrhythmia , UTI, pneumonia. Occult bleeding was found on urinalysis. Patient's hemoglobin decreased to 7.4 on 12/19. She was transfused 2 units pack red blood cells. Due to patient's CKD, her Elliquis dosage was reduced to 2.5 mg twice a day. Today, patient feels a whole lot better with no lightheadedness/dizziness on sitting or standing. She is excited to go home. Discussed with Dr. Bergman Discharge Planning Possible discharge home today due to resolution of lightheadedness. (Ivana Nichols MD R1) Attending Attestation Case reviewed and discussed with the resident team. Agree with plan of care as discussed with me and documented in the resident note. 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 infarct -Chest x-ray negative for acute cardiopulmonary process -EKG performed shows electronically paced rhythm with heart rate of 66, no signs of ACS -Repeat EKG every 6 hours 2 within normal limits -Initial troponin WNL at 0.04, repeat troponin 2 was normal -CK-MB has remained elevated during admission - on show etiology -Carotid ultrasound was normal -Echo showed EF of 55-60% with no regional wall abnormalities -EEG was normal -Urinalysis with reflex culture was normal except for occult blood -Hemoccult pending but expected to be positive due to patient being on Plavix and Eliquis 12/19/16 Findings of chronic kidney disease with somewhat worsening anemia. In a patient with coronary artery disease and symptomatic anemia we'll transfuse 2 units of packed red blood cells. I am suspicious that the anemia could be secondary to the use of several blood thinners along with [id number] Aleve. Since she had a coronary stent done earlier this year she probably should remain on Plavix. In view of her chronic kidney disease will decrease her dose of Eliquis. For now will stop the aspirin. A stool Hemoccult has been ordered but with the use of multiple medications that can thin her blood and cause gastric irritation I would not be surprised if this is positive. (2) CKD (chronic kidney disease) Status: Acute Plan: -Creatinine 2.12 in ED with no baseline available comparison -Creatinine/GFR improved to 1.53/32 on 12/20 -GFR of 24 places patient in stage IV -Patient reports being told that she has chronic kidney disease -She does not have a content publisher - on board will recommend outpatient evaluation by content publisher -Kidney ultrasound was normal -Recommend follow up with the content publisher at discharge -Avoid NSAIDs, take Tylenol as needed for pain 12/19/16 I did discuss with the patient the importance of protecting her kidneys from medications that can cause worsening kidney function. Have recommended that she avoid Advil or Aleve. If pain medications are needed she should take Tylenol. (3) Dehydration Status: Acute Plan: -Patient and spouse reports not eating much and not drinking enough water -She does not appear dehydrated on exam but is not making much urine -Encouraged adequate by mouth nutrition and fluid intake (4) Chronic anemia Status: Acute Plan: -Pt reports history of anemia -H/H was 9.5/28.3 on admission -Dropped to 7.4/22.4 on 12/19 -Transfused 2 units packed red blood cells and increased to 10.2/31.3 posttransfusion -Stable at 10.4/31.3 today 12/20 -Patient encouraged to take adequate by mouth nutrition -Consider daily multivitamin (5) Chronic Medical Problems Status: Acute Plan: AFIB: Pacemaker was interrogated in the ED and was found to be working properly. Continue Eliquis at reduced dose of 2.5 mg twice a day due to CKD Hypertension: Restart home metoprolol due to hypertension Hypothyroidism: Continue home levothyroxine 125 mcg daily. Will check TSH level Hyperlipidemia: Continue Crestor 20 mg PO daily CAD: Continue Plavix 75 mg daily. Stop aspirin Depression: Continue Venlafaxine 75mg PO daily (6) FEN/DVT PPX/GI PPX/Standard Orders Status: Acute Plan: Fluids: Oral fluids only Electrolytes: Will monitor and replace as needed Nutrition: Heart-healthy diet DVT Prophylaxis: Patient on Eliquis GI Prophylaxis: None indicated -Monitor I's and O's -Fall precautions -over short and damage clerk with telemetry -Continuous vital signs - Activity OOB with assistance Disposition: Most likely today 12/20, discharge home (Ivana Nichols MD R1) Problem Qualifiers (1) Syncope: Qualified Code: R55 - Syncope, unspecified syncope type (2) CKD (chronic kidney disease): Qualified Code: N18.4 - Stage 4 chronic kidney disease Ivana Nichols MD R1 December 20, 2016 07:10 Jamie Bergman MD December 22, 2016 09:07
[2016-12-20 08:12] VITALS: BP 190/76; PULSE 60; RESP 20; TEMP 96.2; O2SAT 100
[2016-12-20] MEDS: SODIUM CHLORIDE 0.9% FLUSH 10 ML FLUSH IV FLUSH SCH (08:52)
[2016-12-20] MEDS: ATORVASTATIN 40 MG TAB PO SCH (08:53)
[2016-12-20] MEDS: CYCLOSPORINE EACH EYE SCH (08:54)
[2016-12-20] MEDS: APIXABAN 5 MG TABLET PO SCH (08:54)
[2016-12-20] MEDS ORDERED: CLOPIDOGREL 75 MG TAB PO SCH (09:00)
[2016-12-20] MEDS ORDERED: cloNIDine HCL 0.1 MG TAB PO PRN (09:15)
--- NOTE | 2016-12-20 09:49 | HHI.DCPOC ---
Discharge Care Plan Diagnosis: (1) Syncope (2) Dehydration (3) CKD (chronic kidney disease) (4) Chronic anemia Goals to Promote Your Health * To prevent worsening of your condition and complications * To maintain your health at the optimal level Directions to Meet Your Goals Take your medications as prescribed Follow your dietary instruction Follow activity as directed Keep your appointments as scheduled Take your immunizations and boosters as scheduled If your symptoms worsen call your PCP, if no PCP go to Urgent Care Center or Emergency Room Smoking is Dangerous to Your Health. Avoid second hand smoke Call the 24-hour hour crisis hotline for domestic abuse at Ivana Nichols MD R1 December 20, 2016 09:49
[2016-12-20] MEDS ORDERED: SYNT112T PO (09:55)
--- NOTE | 2016-12-20 09:55 | HHI.DS ---
Discharge Summary Admission Date December 18, 2016 at 13:52 Discharge Date: December 20, 2016 Admitting Diagnosis Syncope/Dehydration (1) Syncope Diagnosis: Principal (2) CKD (chronic kidney disease) Diagnosis: Principal (3) Dehydration Diagnosis: Principal (4) Chronic anemia Diagnosis: Principal Brief History Patient is an 86-year-old female with a past medical history of CAD status post 3 stents, A. fib status post pacemaker, hypertension, hypothyroidism , macular degeneration, CKD, TIA in 2015, and depression that presents to the [facility] ED with a chief complaint of syncope that happened this morning around 7 AM. Patient states that she has not felt herself for the last 2 weeks. 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 Around 7 AM this morning she got up to go to the bathroom but was very lightheaded and felt like she would pass out. Her at the bedside stated that she almost fell backwards, her eyes rolled up to the top of her head, and she was not responsive for 30 seconds to 1 minutes. She was also very clammy and sweaty during this time. He denied observing seizure symptoms. He was able to get her to the bathroom and back to the bed. She slept until 10 AM and when she woke up she said that she needed to go to the bathroom but was not strong enough to walk. He eventually got had there and back to bed. He called her doctor who asked him to bring her to the ED. He could not get her into the car so he called a [facility] to bring her to the hospital. Patient states that she is very weak and gets out of breath with simple activities like making the bed. She has not been eating well but has been trying to drink 3-48 ounce glasses of water daily. She agrees that she might be dehydrated. CBC/BMP: 12/20/16 0517 12/20/16516 Significant Findings Laboratory Tests Test 12/18/16 12/18/16 12/18/16 12/18/16 12:11 15:00 17:10 22:58 Red Blood Count 3.07 MIL/MM3 (4.00-5.30) Hemoglobin 9.5 GM/DL (11.6-15.3) Hematocrit 28.3 % (35.0-46.0) Red Cell Distribution Width 17.3 % (11.6-17.2) Neutrophils (%) (Auto) 83.1 % (16.0-70.0) Neutrophils # (Auto) 9.0 TH/MM3 (1.8-7.7) Activated Partial 22.7 SEC Thromboplast Time (24.3-30.1) Blood Urea Nitrogen 77 MG/DL (7-18) Creatinine 2.00 MG/DL (0.50-1.00) Estimat Glomerular Filtration 24 ML/MIN (>89) Rate Random Glucose 128 MG/DL (74-106) Calcium Level 8.3 MG/DL (8.5-10.1) Total Creatine Kinase 304 U/L 282 U/L 251 U/L (26-192) (26-192) (26-192) Creatine Kinase MB 13.4 NG/ML 12.5 NG/ML 11.4 NG/ML (0.5-3.6) (0.5-3.6) (0.5-3.6) Creatine Kinase MB % 4.4 % (0.0-4.0) 4.4 % (0.0-4.0) 4.5 % (0.0-4.0) B-Type Natriuretic Peptide 101 PG/ML (0-100) Thyroid Stimulating Hormone 12.100 uIU/ML 3rd Gen (0.358-3.740) Urine Turbidity HAZY (CLEAR) Urine Occult Blood MOD (NEG) Urine Bacteria OCC /hpf (NONE) Urine Mucus FEW /lpf (OCC) Test 12/19/16 12/19/16 12/20/16 05:41 21:32 05:17 Red Blood Count 2.37 MIL/MM3 3.41 MIL/MM3 (4.00-5.30) (4.00-5.30) Hemoglobin 7.4 GM/DL 10.2 GM/DL 10.4 GM/DL (11.6-15.3) (11.6-15.3) (11.6-15.3) Hematocrit 22.4 % 31.3 % 31.3 % (35.0-46.0) (35.0-46.0) (35.0-46.0) Red Cell Distribution Width 17.4 % (11.6-17.2) Neutrophils (%) (Auto) 70.8 % (16.0-70.0) Chloride Level 112 MEQ/L 112 MEQ/L (98-107) (98-107) Blood Urea Nitrogen 69 MG/DL (7-18) 49 MG/DL (7-18) Creatinine 1.90 MG/DL 1.53 MG/DL (0.50-1.00) (0.50-1.00) Estimat Glomerular Filtration 25 ML/MIN (>89) 32 ML/MIN (>89) Rate Random Glucose 119 MG/DL 110 MG/DL (74-106) (74-106) Calcium Level 7.5 MG/DL 7.9 MG/DL (8.5-10.1) (8.5-10.1) Total Creatine Kinase 258 U/L 313 U/L (26-192) (26-192) Creatine Kinase MB 12.1 NG/ML 16.4 NG/ML (0.5-3.6) (0.5-3.6) Creatine Kinase MB % 4.7 % (0.0-4.0) 5.2 % (0.0-4.0) Total Protein 5.8 GM/DL (6.4-8.2) Albumin 3.2 GM/DL (3.4-5.0) Free Thyroxine 0.56 NG/DL (0.76-1.46) Free Triiodothyronine (T3) 1.18 PG/ML pg/dL (2.18-3.98) B-Type Natriuretic Peptide 113 PG/ML (0-100) Imaging Last 72 hours Impressions Renal Ultrasound 12/19/16 0000 Signed Impressions: Service Date/Time: Monday, December 19, 2016 09:15 - CONCLUSION: 1. Unremarkable ultrasound examination of the kidneys. 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 Stable hypodensities in the deep white matter tracks in the right frontal lobe unchanged. Anival Plunkett MD Chest X-Ray 12/18/16 1159 Signed Impressions: Service Date/Time: December 12:08 - CONCLUSION: 1. No acute cardiopulmonary disease. Jeronimo Villanueva MD Carotid Artery Ultrasound 12/18/16 0000 Signed Impressions: Service Date/Time: December 19:43 - CONCLUSION: Negative examination for a hemodynamically significant carotid stenosis. Perry Han MD PE at Discharge O. CONSTITUTIONAL/GEN: normally nourished, in NAD. EYES: conjunctiva normal, PERRLA, EOMI. ENT: Mouth and pharynx normal. NECK: thyroid midline, carotids symmetrical. LUNGS: clear A-P, respiratory effort is normal. CARDIOVASCULAR: RR without murmur or gallop. No significant edema. GI/ABD: soft without masses, without organomegaly. NEURO: No focal deficits. No lightheadedness/dizziness with sitting or standing. SKIN: color normal, no rashes noted. HEME/LYMPH: no bruising, petechia or significant adenopathy MUSC: back is normal in appearance. Extremities are normal in appearance. PSYCH/MENTAL STATUS: Alert and oriented x 3. Hospital Course Patient is an 86-year-old female with a past medical history of CAD status post 3 stents, A. fib status post pacemaker, hypertension, hypothyroidism , CKD, TIA in 2014, and depression that presented to the [facility] ED with a chief complaint of syncope in the setting of at least 2 weeks of fatigue and poor by mouth intake. Orthostatic vital signs were positive in the ED. Possible causes of syncope including cardiac, seizure, arrhythmia, UTI, and pneumonia were ruled out. However, occult bleeding was found on urinalysis and hemoccult was positive. On 12/19, the patient's hemoglobin decreased to 7.4. Consequently, she was transfused 2 units pack red blood cells. She was also treated with normal saline rehydration during this admission. The cause of the patient's syncope suspected to be secondary to chronic occult bleeding from Eliquis in the setting of CKD as well as poor by mouth intake. Due to the patient's CKD, her Eliquis dosage was reduced to 2.5 mg twice a day. On the day of discharge, she felt a whole lot better with no lightheadedness/ dizziness on sitting or standing. She was discharged home in stable condition. Pt Condition on Discharge: Stable Discharge Disposition: Discharge Home Discharge Instructions DIET: Follow Instructions for: Heart Healthy Diet Activities you can perform: Regular-No Restrictions Follow up Referrals: Cardiology - 2 Weeks Nephrology - 2 Weeks PCP Follow-up - 1 Week New Orders: CBC NO DIFF - 1 Week TSH 3RD GEN - 3 Weeks New Medications: Apixaban (Eliquis) 2.5 Mg Tab 2.5 MG PO BID Blood Clot Prevention #60 Ref 0 TAB Clopidogrel (Plavix) 75 Mg Tab 75 MG PO DAILY Blood Clot Prevention #30 Ref 0 TAB Metoprolol Succinate ER 24 HR (Metoprolol Succinate ER 24 HR) 25 Mg Tab 25 MG PO DAILY #30 Ref 0 TAB Levothyroxine (Synthroid) 112 Mcg Tab 137 MCG PO DAILY@0600 #30 TAB Continued Medications: Cyclosporine Opth 0.05% (Restasis Opth 0.05%) 0.05% Emul 1 DROP EACH EYE BID Dry Eye #1 Ref 0 BOX Lactobacillus Acidophilus (Probiotic) 1 Cap Cap 1 CAP PO DAILY Nutritional Supplement #90 Ref 0 CAP Rosuvastatin (Crestor) 20 Mg Tab 20 MG PO DAILY Cholesterol Management #30 Ref 0 TAB Venlafaxine (Effexor) 75 Mg Tab 75 MG PO DAILY #30 Ref 0 TAB Discontinued Medications: Apixaban (Eliquis) 5 Mg Tab 5 MG PO BID Blood Clot Prevention #60 Ref 0 TAB Aspirin (Aspirin) 81 Mg Tabdr 81 MG PO DAILY TAB Levothyroxine (Synthroid) 125 Mcg Tab 125 MCG PO DAILY Thyroid #30 Ref 0 TAB Metoprolol Tartrate (Metoprolol Tartrate) 25 Mg Tab 25 MG PO BID #60 Ref 0 TAB Ivana Nichols MD R1 December 20, 2016 09:55
[2016-12-20] MEDS ORDERED: METOPROLOL TARTRATE 25 MG TAB PO SCH ×2 (10:00→21:00)
[2016-12-20 10:05] VITALS: O2SAT 92
[2016-12-20 12:16] VITALS: BP 151/72; PULSE 60; RESP 20; TEMP 96.2; O2SAT 99
[2016-12-20] MEDS ORDERED: PLAV75TA29 PO (14:23)
[2016-12-20] MEDS ORDERED: METO25TA6 PO (14:23)
[2016-12-20] MEDS ORDERED: APIX2.5T PO (14:28)
== END 2016-12-20 17:30 | disposition home or self-care (01) | DRG 812 ==
LOC: NEPC 11:48 → NEDA 13:44 → OBSVTOIN 13:52 → NEPFCDU 15:41 → N05A 12-19 17:42
PROVIDERS: ADMIT Family Medicine; ATTEND Family Medicine
PROC: 30233N1 Transfusion of Nonautologous Red Blood Cells into Peripheral Vein, Percutaneous Approach (ICD-10-PCS; principal; 2016-12-19)
DX: D50.0 Iron deficiency anemia secondary to blood loss (chronic) (principal); N18.4 Chronic kidney disease, stage 4 (severe); E86.0 Dehydration; I48.91 Unspecified atrial fibrillation; I12.9 Hypertensive chronic kidney disease with stage 1 through stage 4 chronic kidney disease, or unspecified chronic kidney disease; E03.9 Hypothyroidism, unspecified; E78.5 Hyperlipidemia, unspecified; F32.9 Major depressive disorder, single episode, unspecified; I95.1 Orthostatic hypotension; I25.10 Atherosclerotic heart disease of native coronary artery without angina pectoris; R19.5 Other fecal abnormalities; T45.515A Adverse effect of anticoagulants, initial encounter; M13.872 Other specified arthritis, left ankle and foot; H35.30 Unspecified macular degeneration; Z53.29 Procedure and treatment not carried out because of patient's decision for other reasons; Z79.01 Long term (current) use of anticoagulants; Z82.49 Family history of ischemic heart disease and other diseases of the circulatory system; Z83.3 Family history of diabetes mellitus; Z86.73 Personal history of transient ischemic attack (TIA), and cerebral infarction without residual deficits; Z95.0 Presence of cardiac pacemaker; Z95.5 Presence of coronary angioplasty implant and graft
CPT/HCPCS: 36430; 70450; 71010; 76775; 80048; 80053; 81001; 82272; 82550; 82552; 83735; 83880; 84100; 84439; 84443; 84481; 84484; 85014; 85018; 85025; 85027; 85610; 85730; 86850; 86900; 86901; 86920; 93005; 93306; 93880; 95819; 96360; 96361; G0378; J1940; J7030; J7040; P9016; P9040

== ENCOUNTER 2017-03-02 20:22 | Inpatient (IN) | payer MEDICARE ==
[~2017-03-02] VITALS: Ht 170.2 cm; Wt 83.6 kg
[~2017-03-02 20:22] MED LIST changes: +APIX2.5T PO; -ECASA PO; +LACTCAP8 PO; -LEVO125T3 PO; -LISI-363 PO; -LOMO PO; +METO25TA6 PO; -OCUV PO; +PLAV75TA29 PO; -PRO-CAP PO; -PROT40TA PO; +REST0.05 EACH EYE; -REST0.05 OU; +ROSU20 PO; -ROSU40 PO; +SYNT112T PO; -VENL37.5 PO; +VENL75TA PO
[2017-03-02 20:31] VITALS: BP 158/73; PULSE 59; RESP 16; TEMP 98; O2SAT 96
[2017-03-02] MEDS ORDERED: LEVO125T4 PO (20:42)
[2017-03-02] MEDS ORDERED: LUTE6CAP2 PO (20:42)
[2017-03-02] MEDS ORDERED: FERR325C PO (20:42)
--- NOTE | 2017-03-02 20:49 | PD ---
HPI Chief Complaint: Fall Time Seen by Provider: 20:40 Travel History International Travel<30 days: No Contact w/Intl Traveler<30days: No Traveled to known affect area: No History of Present Illness HPI 87- year old female presents to the ED after a fall at home. The patient reports after dinner tonight upon walking to the laundry room she lost her balance and fell on her left side. She denies any LOC or hitting her head. She reports pain to her left elbow and hip with movement, however no pain while laying still. When the patient moves she rates her pain as a 7/10. The patient denies any lightheadedness or dizziness, chest pain, or shoulder pain. The patient reports that she had left hip surgery around 10 years ago. She reports her prior medical history includes stents, macular degeneration, hypertension, multiple heart conditions, and prior TIAs. She is currently on blood thinners which include Plavix and Eliquis. PFSH Past Medical History Hx Anticoagulant Therapy: Yes (PLAVIX , ELIQUIS , ASA ) Arthritis: Yes (L ANKLE FLARE UP 2 WKS AGO) Blood Disorders: No Anxiety: No Depression: No Cancer: No Cardiovascular Problems: Yes High Cholesterol: Yes Chemotherapy: No Congestive Heart Failure: No Diminished Hearing: No Endocrine: Yes Gastrointestinal Disorders: No Genitourinary: No Immune Disorder: No Musculoskeletal: Yes Neurologic: No Psychiatric: No Respiratory: No Radiation Therapy: No Thyroid Disease: Yes (HYPOTHYROIDISM) Tetanus Vaccination: < 5 Years Menopausal: Yes Past Surgical History Abdominal Surgery: No AICD: No Cardiac Surgery: Yes Coronary Stent: Yes Ear Surgery: No Endocrine Surgery: No Eye Surgery: No Genitourinary Surgery: No Gynecologic Surgery: No Joint Replacement: No Oral Surgery: No Pacemaker: Yes Thoracic Surgery: No Social History Alcohol Use: Yes (wine ) Tobacco Use: No Substance Use: No Allergies-Medications (Allergen,Severity, Reaction): Coded Allergies: No Known Allergies (Verified , 03/02/17) Reported Meds & Prescriptions Reported Meds & Active Scripts Active Eliquis (Apixaban) 2.5 Mg Tab 2.5 Mg PO BID Plavix (Clopidogrel Bisulfate) 75 Mg Tab 75 Mg PO DAILY Metoprolol Succinate ER 24 HR (Metoprolol Succinate) 25 Mg Tab 25 Mg PO DAILY Reported Lutein 6 Mg Cap 6 Mg PO DAILY Iron (Ferrous Sulfate) 325 Mg Cap 325 Mg PO DAILY Levothyroxine (Levothyroxine Sodium) 125 Mcg Tab 125 Mcg PO DAILY Probiotic (Lactobacillus Acidophilus) 1 Cap Cap 1 Cap PO DAILY Crestor (Rosuvastatin Calcium) 20 Mg Tab 20 Mg PO DAILY Restasis Opth 0.05% (Cyclosporine Opth 0.05%) 0.05% Emul 1 Drop EACH EYE BID Effexor (Venlafaxine HCl) 75 Mg Tab 75 Mg PO DAILY Review of Systems General / Constitutional: No: Fever, Chills, Weight Gain, Weight Loss, Other Eyes: No: Diploplia, Blurred Vision, Photophobia, Drainage, Redness, Foreign Body Sensation, Pain, Tearing, Blind Spots, Visual changes, Blindness, Other HENT: No: Headaches, Vertigo, Lightheadedness, Sore Throat, Rhinitis, Rhinorrhea, Congestion, Nosebleed, Neck Stiffness, Neck Pain, Masses, Gingival Bleeding, Dental Difficulties, Ear Discharge, Earache, Other Cardiovascular: No: Chest Pain or Discomfort, Palpitations, Irregular Rhythm, Tachycardia, Diaphoresis, Syncope, Dyspnea on exertion, Varicosities, Edema, Cyanosis, Varicosities, Phlebitis, Claudication, Other Respiratory: No: Cough, Shortness of Breath, Wheezing, Sneezing, Orthopnea, Hemoptysis, Stridor, Night Sweats, Pleuritic Pain, Other Gastrointestinal: No: Nausea, Vomiting, Diarrhea, Abdominal Pain, Hematemesis, Hematochezia, Constipation, Changes in Bowel Habits, Indigestion, Dysphagia, Loss of Appetite, Other Genitourinary: No: Urgency, Frequency, Dysuria, Nocturia, Hematuria, Decreased Urinary Output, Oliguria, Hesitancy, Dribbling, Incontinence, Pelvic Pain, Flank Pain, Dyspareunia, Discharge, Dysmenorrhea, Menorrhagia, Metorrhagia, Vaginal Bleeding, Other Musculoskeletal: Positive: Myalgias, Limited ROM, Pain, No: Arthralgias, Weakness, Cramping, Edema, Atrophy, Other (left hip and elbow pain) Skin: Positive Lesions (lesion on left elbow), No Rash, No Itching, No Dryness , No Lumps, No Hives, No Change in Pigmentation, No Change in nails, No Alopecia , No Breast Lumps, No Breast Tenderness, No Breast Swelling, No Other Neurologic: No: Weakness, Dizziness, Syncope, Focal Abnormalities, Coordination Problem, Tremor, Ataxia, Headache, Change in Mentation, Slurred Speech, Paresthesia, Incontinence, Seizures, Sensory Disturbance, Other Physical Exam Narrative GENERAL: SKIN: Warm and dry. HEAD: Atraumatic. Normocephalic. EYES: Pupils equal and round. No scleral icterus. No injection or drainage. ENT: No nasal bleeding or discharge. Mucous membranes pink and moist. NECK: Trachea midline. No JVD. CARDIOVASCULAR: Regular rate and rhythm. RESPIRATORY: No accessory muscle use. Clear to auscultation. Breath sounds equal bilaterally. GASTROINTESTINAL: Abdomen soft, non-tender, nondistended. Hepatic and splenic margins not palpable. MUSCULOSKELETAL: Skin tear to left elbow. Tender to palpation on left hip/ femur. Extremities without clubbing, cyanosis, or edema. Patient has pain with any movement of the left hip. Patient does have bruising noted on the lateral aspect of the hip. Tenderness to palpation in this area. Patient does have significant bruising and swelling on the posterior aspect of the elbow. Able to move the elbow however. Patient does have a very small superficial skin tear. 2+ pulses bilaterally. Neurovascular intact. NEUROLOGICAL: Awake and alert. No obvious cranial nerve deficits. Motor grossly within normal limits. Five out of 5 muscle strength in the arms and legs. Normal speech. PSYCHIATRIC: Appropriate mood and affect; insight and judgment normal. Data Data Last Documented VS Vital Signs Date Time Temp Pulse Resp B/P Pulse Ox O2 Delivery O2 Flow Rate FiO2 03/02/17 20:31 98.0 59 16 158/73 96 Orders Elbow, Complete (4 Vws) (03/02/17 20:35) Hip, Uni(Ap&Lat) Wo Ap Pelvis (03/02/17 20:35) Ice/Cold Pack (03/02/17 20:35) Complete Blood Count With Diff (03/02/17 20:56) Basic Metabolic Panel (Bmp) (03/02/17 20:56) Prothrombin Time / Inr (Pt) (03/02/17 20:56) Act Partial Throm Time (Ptt) (03/02/17 20:56) Electrocardiogram (03/02/17 21:10) Ct Pelvis W/O Iv Contrast (03/02/17 ) Sodium Chlor 0.9% 1000 Ml Inj (Ns 1000 M (03/02/17 22:26) Labs Laboratory Tests Test 03/02/17 03/02/17 21:40 21:41 White Blood Count 11.2 TH/MM3 Red Blood Count 3.75 MIL/MM3 Hemoglobin 12.1 GM/DL Hematocrit 38.2 % Mean Corpuscular Volume 102.0 FL Mean Corpuscular Hemoglobin 32.3 PG Mean Corpuscular Hemoglobin 31.7 % Concent Red Cell Distribution Width 15.5 % Platelet Count 264 TH/MM3 Mean Platelet Volume 7.9 FL Neutrophils (%) (Auto) 89.1 % Lymphocytes (%) (Auto) 6.4 % Monocytes (%) (Auto) 3.2 % Eosinophils (%) (Auto) 1.0 % Basophils (%) (Auto) 0.3 % Neutrophils # (Auto) 9.9 TH/MM3 Lymphocytes # (Auto) 0.7 TH/MM3 Monocytes # (Auto) 0.4 TH/MM3 Eosinophils # (Auto) 0.1 TH/MM3 Basophils # (Auto) 0.0 TH/MM3 CBC Comment DIFF FINAL Differential Comment Prothrombin Time 11.3 SEC Prothromb Time International 1.0 RATIO Ratio Activated Partial 24.9 SEC Thromboplast Time Sodium Level 137 MEQ/L Potassium Level 5.5 MEQ/L Chloride Level 106 MEQ/L Carbon Dioxide Level 19.4 MEQ/L Anion Gap 12 MEQ/L Blood Urea Nitrogen 27 MG/DL Creatinine 2.00 MG/DL Estimat Glomerular Filtration 24 ML/MIN Rate Random Glucose 95 MG/DL Calcium Level 8.0 MG/DL MDM Medical Decision Making Medical Screen Exam Complete: Yes Emergency Medical Condition: Yes Medical Record Reviewed: Yes Interpretation(s) CBC & BMP Diagram 03/02/17 21:40 03/02/17 21:41 coags WNL Last Impressions Hip X-Ray 03/02/172034 Signed Impressions: Service Date/Time: Thursday, March 02, 2017 21:03 - CONCLUSION: Nondisplaced fracture of the superior left symphysis pubis. Intact total hip arthroplasty. Ken Pérez MD Elbow X-Ray 03/02/172034 Signed Impressions: Service Date/Time: Thursday, March 02, 2017 20:49 - CONCLUSION: No fracture seen. There is evidence of elbow effusion and significant soft tissue swelling about the olecranon. Ken Pérez MD Differential Diagnosis Fracture to left elbow Fracture to left hip Loss of balance Narrative Course 87-year-old female that presents to the ED for evaluation of trip and fall. Patient was properly examined and was found to have signs and symptoms concerning for bony injuries. X-rays and labs ordered. X-rays show what appears to be a pelvic fracture. Patient still a lot of pain. We'll do CT to rule out any sign of other injuries as well as to better delineate pelvic injury. Case was signed out to my attending pending likely admission due to inability to ambulate. Syed Diaz Mar 02, 2017 20:49
--- NOTE | 2017-03-02 21:38 | RADRPT ---
EXAM DATE/TIME: 03/02/2017 20:49 [facility] COMPARISON: No previous studies available for comparison. INDICATIONS : Fall. Left elbow pain and laceration. MEDICAL HISTORY : Myocardial infarction. Hypercholesterolemia. Hypothyroidism. Arthritis. Shingles. SURGICAL HISTORY : Coronary artery stent. Pacemaker. Left hip arthroplasty. ENCOUNTER: Initial ACUITY: 1 day PAIN SCORE: 5/10 LOCATION: Left elbow FINDINGS: There is anterior displacement of the anterior fat-pad. The posterior fat-pad is not visualized. Fi nding suggest elbow effusion. There is significant soft tissue swelling about the olecranon, measuri ng up to 2.2 cm in thickness. The osseous structures are in normal alignment. No fracture seen. No radiopaque foreign body. CONCLUSION: No fracture seen. There is evidence of elbow effusion and significant soft tissue swelling about the olecranon. Ken Pérez MD on March 02, 2017 at 21:35 Board Certified Radiologist. This report was verified electronically.
--- NOTE | 2017-03-02 21:56 | RADRPT ---
EXAM DATE/TIME: 03/02/2017 21:03 [facility] COMPARISON: No previous studies available for comparison. INDICATIONS : Fall. Left hip pain. MEDICAL HISTORY : Myocardial infarction. Hypercholesterolemia. Hypothyroidism. Arthritis. Shingles. SURGICAL HISTORY : Coronary artery stent. Pacemaker. Left hip arthroplasty. ENCOUNTER: Initial ACUITY: 1 day PAIN SCORE: 5/10 LOCATION: Left hip FINDINGS: 2 view examination of the left hip demonstrates a unipolar noncemented arthroplasty which remains in orthotopic position. Prominent heterotopic bone is seen in the space between the acetabulum and grea ter trochanter. No proximal femoral fracture seen. The acetabulum appears grossly intact. There is a one cortex fracture of the superior margin of the pubic bone between the symphysis pubis and ramus . CONCLUSION: Nondisplaced fracture of the superior left symphysis pubis. Intact total hip arthroplasty. Ken Pérez MD on March 02, 2017 at 21:53 Board Certified Radiologist. This report was verified electronically.
[2017-03-02 22:06] LABS: AUTOMATED NEUTROPHIL # 9.9 TH/MM3 (1.8-7.7); BASOPHIL % 0.3 % (0.0-2.0); EOSINOPHIL # 0.1 TH/MM3 (0-0.4); HEMATOCRIT 38.2 % (35.0-46.0); HEMO FLAGS DIFF FINAL; LYMPH % 6.4 % (9.0-44.0); LYMPHOCYTE # 0.7 TH/MM3 (1.0-4.8); MEAN CORPUSCULAR HEMOGLOBIN 32.3 PG (27.0-34.0); MEAN CORPUSCULAR HGB CONC 31.7 % (32.0-36.0); MONO % 3.2 % (0.0-8.0); NEUT % 89.1 % (16.0-70.0); PLATELET COUNT 264 TH/MM3 (150-450); RED BLOOD COUNT 3.75 MIL/MM3 (4.00-5.30); RED CELL DISTRIBUTION WIDTH 15.5 % (11.6-17.2); WHITE BLOOD COUNT 11.2 TH/MM3 (4.0-11.0)
[2017-03-02 22:17] LABS: APTT (PATIENT) 24.9 SEC (24.3-30.1); PROTHROMBIN TIME - PATIENT 11.3 SEC (9.8-11.6)
[2017-03-02 22:19] LABS: BICARBONATE 19.4 MEQ/L (21.0-32.0)
[2017-03-02 22:24] LABS: POTASSIUM 5.5 MEQ/L (3.5-5.1)
[2017-03-02] MEDS ORDERED: SODIUM CHLOR 0.9% 1000 ML INJ 1,000 ML IV SCH (22:26)
[2017-03-02 22:55] VITALS: BP 172/70; PULSE 61; RESP 16; O2SAT 94
--- NOTE | 2017-03-02 23:19 | RADRPT ---
EXAM DATE/TIME: 03/02/2017 22:18 [facility] COMPARISON: HIP LEFT (AP&LAT 2/3VWS) WO AP PELVIS, March 02, 2017, 21:03. INDICATIONS : Patient fell, left hip pain, abnormal hip x-ray. ORAL CONTRAST: No oral contrast ingested. RADIATION DOSE: 29.67 CTDIvol (mGy) MEDICAL HISTORY : Cardiovascular disease. SURGICAL HISTORY : Pacemaker. left hip replacement ENCOUNTER: Initial ACUITY: 1 day PAIN SCALE: 5/10 LOCATION: Left hip TECHNIQUE: Volumetric scanning of the pelvis was performed. Using automated exposure control and adjustment of the mA and/or kV according to patient size, radiation dose was kept as low as reasonably achievable t o obtain optimal diagnostic quality images. DICOM format image data is available electronically for review and comparison. FINDINGS: There are several left-sided pelvic fractures involving the inferior pubic ramus, superior cortex of the symphysis pubis, anterior column of the acetabulum and the anterior left sacral ala. Left total hip arthroplasty in place with heterotopic ossification superiorly. No right sided pelvic fracture s een. Urinary bladder margins are smooth. No evidence of free fluid in the pelvis. Scattered calcificatio ns within the uterus. Sigmoid diverticula without radiographic evidence of diverticulitis. CONCLUSION: Left pelvic fractures involving sacral ala, anterior column of the acetabulum, symphysis pubis, and i nferior pubic ramus. Ken Pérez MD on March 02, 2017 at 23:13 Board Certified Radiologist. This report was verified electronically.
[2017-03-03] VITALS (8 sets, daily range): BP systolic 121–184; BP diastolic 60–72; PULSE 59–68; RESP 16–17; TEMP 96.2–97.4; O2SAT 94–99
--- NOTE | 2017-03-03 00:37 | PD ---
Data Data Last Documented VS Vital Signs Date Time Temp Pulse Resp B/P Pulse Ox O2 Delivery O2 Flow Rate FiO2 03/02/17 22:55 61 16 172/70 94 Room Air 03/02/17 20:31 98.0 Orders Elbow, Complete (4 Vws) (03/02/17 20:35) Hip, Uni(Ap&Lat) Wo Ap Pelvis (03/02/17 20:35) Ice/Cold Pack (03/02/17 20:35) Complete Blood Count With Diff (03/02/17 20:56) Basic Metabolic Panel (Bmp) (03/02/17 20:56) Prothrombin Time / Inr (Pt) (03/02/17 20:56) Act Partial Throm Time (Ptt) (03/02/17 20:56) Electrocardiogram (03/02/17 21:10) Ct Pelvis W/O Iv Contrast (03/02/17 ) Sodium Chlor 0.9% 1000 Ml Inj (Ns 1000 M (03/02/17 22:26) Admit Order (Ed Use Only) (03/03/17 00:38) Labs Laboratory Tests Test 03/02/17 03/02/17 21:40 21:41 White Blood Count 11.2 TH/MM3 Red Blood Count 3.75 MIL/MM3 Hemoglobin 12.1 GM/DL Hematocrit 38.2 % Mean Corpuscular Volume 102.0 FL Mean Corpuscular Hemoglobin 32.3 PG Mean Corpuscular Hemoglobin 31.7 % Concent Red Cell Distribution Width 15.5 % Platelet Count 264 TH/MM3 Mean Platelet Volume 7.9 FL Neutrophils (%) (Auto) 89.1 % Lymphocytes (%) (Auto) 6.4 % Monocytes (%) (Auto) 3.2 % Eosinophils (%) (Auto) 1.0 % Basophils (%) (Auto) 0.3 % Neutrophils # (Auto) 9.9 TH/MM3 Lymphocytes # (Auto) 0.7 TH/MM3 Monocytes # (Auto) 0.4 TH/MM3 Eosinophils # (Auto) 0.1 TH/MM3 Basophils # (Auto) 0.0 TH/MM3 CBC Comment DIFF FINAL Differential Comment Prothrombin Time 11.3 SEC Prothromb Time International 1.0 RATIO Ratio Activated Partial 24.9 SEC Thromboplast Time Sodium Level 137 MEQ/L Potassium Level 5.5 MEQ/L Chloride Level 106 MEQ/L Carbon Dioxide Level 19.4 MEQ/L Anion Gap 12 MEQ/L Blood Urea Nitrogen 27 MG/DL Creatinine 2.00 MG/DL Estimat Glomerular Filtration 24 ML/MIN Rate Random Glucose 95 MG/DL Calcium Level 8.0 MG/DL [facility] Medical Record Reviewed: Yes Supervised Visit with TAWANA: No Interpretation(s) Last Impressions Hip X-Ray 03/02/172034 Signed Impressions: Service Date/Time: Thursday, March 02, 2017 21:03 - CONCLUSION: Nondisplaced fracture of the superior left symphysis pubis. Intact total hip arthroplasty. Ken Pérez MD Elbow X-Ray 03/02/172034 Signed Impressions: Service Date/Time: Thursday, March 02, 2017 20:49 - CONCLUSION: No fracture seen. There is evidence of elbow effusion and significant soft tissue swelling about the olecranon. Ken Pérez MD Pelvis CT 03/02/17 0000 Signed Impressions: Service Date/Time: Thursday, March 02, 2017 22:18 - CONCLUSION: Left pelvic fractures involving sacral ala, anterior column of the acetabulum, symphysis pubis, and inferior pubic ramus. Ken Pérez MD Narrative Course During the course of the patients emergency department visit, the patients history, examination, and differential diagnosis were reviewed with the patient. The patient had IV access obtained and blood work sent for analysis. The patient's case is checked out to me by Winston, the physician trust administrative assistant. Please see his complete history and physical. The patient's case was checked out to me at the conclusion of his shift. The patient reportedly had a history of fall with pelvis and hip pain and inability to ambulate. He suspected that the patient would require admission. The patient was initially provided normal saline IV fluids. The patients laboratory studies were reviewed and remarkable for a white count of 11.2, hemoglobin 12.1, platelets 264 with 89.1 neutrophils, lymphocytes 6.4. Basic metabolic profile is remarkable for a potassium of 5.5 with moderate hemolysis noted, CO2 19.4, BUN 27, creatinine 2, GFR 24, calcium 8.0, PT 11.3, PTT 24.9. Radiology studies were reviewed and remarkable for hip x-ray that showed a nondisplaced fracture of the superior left and the dispute this, intact total hip arthroplasty. CT scan of the pelvis shows left pelvis fractures involving the sacral all other, anterior column of the acetabulum, symphysis pubis and inferior pubic ramus. The patients results were discussed with the patient, including the plan of care. I explained that further testing and/ or monitoring is indicated based on the patients history, examination, and/ or laboratory findings. Therefore, I recommended admission for additional evaluation. The patient expressed understanding and was agreeable with this plan. The patient was admitted to the hospital in stable condition and [facility] Physician Communication Physician Communication The patient's case was discussed with Dr. Cassidy who did agree to admit the patient for further evaluation and treatment at this time. Diagnosis Primary Impression: Multiple pelvic fractures Qualified Code: S32.810A - Multiple closed fractures of pelvis with stable disruption of pelvic belk[place], initial encounter Additional Impression: Fall Qualified Code: W19.XXXA - Fall, initial encounter Admitting Information Admitting Physician Requests: Admit Viviana Vasquez MD Mar 03, 2017 00:37
[2017-03-03] MEDS ORDERED: MORPHINE SULFATE 4 MG/ML INJ IV PUSH ONE (01:00)
[2017-03-03] MEDS ORDERED: NALOXONE HCL 0.4 MG/ML AMP IV PRN (01:00)
[2017-03-03] MEDS ORDERED: ONDANSETRON HCL 4 MG/2 ML VIAL IV PUSH ONE (01:00)
[2017-03-03] MEDS ORDERED: SODIUM CHLORIDE 0.9% FLUSH 10 ML FLUSH IV FLUSH PRN (01:00)
--- NOTE | 2017-03-03 01:59 | HHI.HP ---
HPI Service [facility] Primary Care Physician Candelaria Almendarez MD Admission Diagnosis Fall, multipe pelvic fx Diagnoses: Chief Complaint: pelvic pain Travel History International Travel<30 Days: No Contact w/Intl Traveler <30 Da: No Traveled to Known Affected Are: No History of Present Illness Written by JARED Pal acting as scribe for [Khanh] on 03/03/17 at 01: 51. 87 y/o female with a history of poor balance, CAD, AFIB, ID with 4 heart stents , last stent placed in 2016, pacemaker, HTN, anemia, CKD and multiple TIAs. She states she go out of car, and was walking through the laundry room, lost her balance and fell. She states she fell on her left hip and left elbow. She denies any chest pain, sob, blurry vision, or dizziness prior to fall. She denies hitting her head. She states she has been working on her balance at the [facility], denies using a cane or walker. Denies any nausea, vomiting, red colored stools, or dysuria. She is on Plavix and Eliquis at home. Review of Systems Except as stated in HPI: all other systems reviewed are Neg Past Family Social History Past Medical History poor balance CAD Hypothyroid AFIB ID with 4 heart stents,last stent placed in 2016 pacemaker HTN anemia CKD multiple TIAs. Past Surgical History Pacemaker Left hip replacement Cardiac Stents x 4 Reported Medications Reported Meds & Active Scripts Active Eliquis (Apixaban) 2.5 Mg Tab 2.5 Mg PO BID Plavix (Clopidogrel Bisulfate) 75 Mg Tab 75 Mg PO DAILY Metoprolol Succinate ER 24 HR (Metoprolol Succinate) 25 Mg Tab 25 Mg PO DAILY Reported Lutein 6 Mg Cap 6 Mg PO DAILY Iron (Ferrous Sulfate) 325 Mg Cap 325 Mg PO DAILY Levothyroxine (Levothyroxine Sodium) 125 Mcg Tab 125 Mcg PO DAILY Probiotic (Lactobacillus Acidophilus) 1 Cap Cap 1 Cap PO DAILY Crestor (Rosuvastatin Calcium) 20 Mg Tab 20 Mg PO DAILY Restasis Opth 0.05% (Cyclosporine Opth 0.05%) 0.05% Emul 1 Drop EACH EYE BID Effexor (Venlafaxine HCl) 75 Mg Tab 75 Mg PO DAILY Allergies: Coded Allergies: No Known Allergies (Verified , 03/02/17) Active Ordered Medications Current Medications Medications (Trade) Dose Ordered Sig/Barbie Route Start Time Stop Time Status Last Admin (NS Flush) 2 ml UNSCH PRN IV FLUSH 03/03/17 01:00 (NS Flush) 2 ml BID IV FLUSH 03/03/17 09:00 (Narcan Inj) 0.4 mg UNSCH PRN IV 03/03/17 01:00 (Morphine Inj) 2 mg Q3H PRN IV PUSH 03/03/17 01:00 Family History Mom: heart disease, polycythemia Dad: pacemaker Social History Tobacco use: Denies Alcohol use: socially Physical Exam Vital Signs Vital Signs Date Time Temp Pulse Resp B/P Pulse Ox O2 Delivery O2 Flow Rate FiO2 03/02/17 22:55 61 16 172/70 94 Room Air 03/02/17 20:31 98.0 59 16 158/73 96 Physical Exam GENERAL: This is a well-nourished, well-developed patient, in no apparent distress. SKIN: Cool and dry. Left elbow ecchymotic with skin tear draining sanguinous fluid. HEAD: Atraumatic. Normocephalic. No temporal or scalp tenderness. EYES: Pupils equal round and reactive. Extraocular motions intact. ENT: Nose without bleeding, purulent drainage or septal hematoma. NECK: Trachea midline. No JVD or lymphadenopathy. Supple, nontender, no meningeal signs. CARDIOVASCULAR: Regular rate and rhythm without murmurs, gallops, or rubs. RESPIRATORY: Clear to auscultation. Breath sounds equal bilaterally. No wheezes , rales, or rhonchi. GASTROINTESTINAL: Abdomen soft, non-tender, nondistended. No hepato-splenomegaly , or palpable masses. No guarding. MUSCULOSKELETAL: Extremities without clubbing, cyanosis, or edema. Left hip tenderness. No calf tenderness. NEUROLOGICAL: Awake and alert. Motor and sensory grossly within normal limits. Normal speech. Laboratory Laboratory Tests Test 03/02/17 03/02/17 21:40 21:41 White Blood Count 11.2 Red Blood Count 3.75 Hemoglobin 12.1 Hematocrit 38.2 Mean Corpuscular Volume 102.0 Mean Corpuscular Hemoglobin 32.3 Mean Corpuscular Hemoglobin 31.7 Concent Red Cell Distribution Width 15.5 Platelet Count 264 Mean Platelet Volume 7.9 Neutrophils (%) (Auto) 89.1 Lymphocytes (%) (Auto) 6.4 Monocytes (%) (Auto) 3.2 Eosinophils (%) (Auto) 1.0 Basophils (%) (Auto) 0.3 Neutrophils # (Auto) 9.9 Lymphocytes # (Auto) 0.7 Monocytes # (Auto) 0.4 Eosinophils # (Auto) 0.1 Basophils # (Auto) 0.0 CBC Comment DIFF FINAL Differential Comment Prothrombin Time 11.3 Prothromb Time International 1.0 Ratio Activated Partial 24.9 Thromboplast Time Sodium Level 137 Potassium Level 5.5 Chloride Level 106 Carbon Dioxide Level 19.4 Anion Gap 12 Blood Urea Nitrogen 27 Creatinine 2.00 Estimat Glomerular Filtration 24 Rate Random Glucose 95 Calcium Level 8.0 Result Diagram: 03/02/17213903/02/172140 Imaging Last Impressions Hip X-Ray 03/02/172034 Signed Impressions: Service Date/Time: Thursday, March 02, 2017 21:03 - CONCLUSION: Nondisplaced fracture of the superior left symphysis pubis. Intact total hip arthroplasty. Ken Pérez MD Elbow X-Ray 03/02/172034 Signed Impressions: Service Date/Time: Thursday, March 02, 2017 20:49 - CONCLUSION: No fracture seen. There is evidence of elbow effusion and significant soft tissue swelling about the olecranon. Ken Pérez MD Pelvis CT 03/02/17 0000 Signed Impressions: Service Date/Time: Thursday, March 02, 2017 22:18 - CONCLUSION: Left pelvic fractures involving sacral ala, anterior column of the acetabulum, symphysis pubis, and inferior pubic ramus. Ken Pérez MD Assessment and Plan Problem List: (1) Multiple pelvic fractures ICD Code: S32.810A Status: Acute (2) CKD (chronic kidney disease) ICD Code: N18.9 Status: Chronic (3) Fall ICD Code: W19.XXXA Status: Acute Assessment and Plan 87 y/o female with a history of poor balance, CAD, AFIB, ID with 4 heart stents , last stent placed in 2016, pacemaker, HTN, anemia, CKD and multiple TIAs. Multiple pelvic fractures, s/p fall Pelvis CT reviewed and shows Left pelvic fractures involving sacral ala, anterior column of the acetabulum, symphysis pubis, and inferior pubic ramus. -Consult orthopedics for recommendations, patient known to Dr. Diaz -IV morphine for pain management -Case management for rehab options -PT eval and treat Left elbow evulsion, s/p fall Elbow xray reviewed and shows No fracture. There is evidence of elbow effusion and significant soft tissue swelling about the olecranon. - Ice as needed for swelling -Clean with saline and cover with non adhesive dressing. Leukocytosis, wbc 11.2, likely reactive to trauma and pain -CBC in AM, trend CKD, creatine 2.0, baseline 1.9 -Avoid nephrotoxins -BMP in AM, cont to trend HTN, AFIb, chronic -Cont home medication metoprolol -Monitor vitals and telemetry DVT prophylaxis: SCDs, hold chemical for now until evaluated by ortho This note was transcribed by kimberly [Jasmyn Gonzalez]. I, Dr. Marlyn Cassidy personally performed the history, physical exam, and medical decision making; and confirmed the accuracy of the information in the transcribed note. Authenticated by Dr. Marlyn Cassidy on 03/03/17 at 01:51. Discussed Condition With Patient, RN, and ED physician Physician Certification 2 Midnight Certification Type: Admission for Inpatient Services Order for Inpatient Services The services are ordered in accordance with Medicare regulations or non- Medicare payer requirements, as applicable. In the case of services not specified as inpatient-only, they are appropriately provided as inpatient services in accordance with the 2-midnight benchmark. Estimated LOS (days): 3 days is the estimated time the patient will need to remain in the hospital, assuming treatment plan goals are met and no additional complications. Post-Hospital Plan: Not yet determined Problem Qualifiers (1) Multiple pelvic fractures: Qualified Code: S32.810A - Multiple closed fractures of pelvis with stable disruption of pelvic [place], initial encounter (2) CKD (chronic kidney disease): Qualified Code: N18.3 - Stage 3 chronic kidney disease (3) Fall: Qualified Code: W19.XXXA - Fall, initial encounter Jasmyn Gonzalez Mar 03, 2017 01:59 Marlyn Cassidy MD Mar 03, 2017 07:37
[2017-03-03] MEDS: MORPHINE SULFATE 4 MG/ML INJ IV PUSH PRN ×2 (03:47→13:16)
[2017-03-03] MEDS: LEVOTHYROXINE SODIUM 125 MCG TAB PO SCH (06:10)
[2017-03-03] MEDS: LACTOBACILLUS ACIDOPHILUS TAB PO SCH (08:34)
[2017-03-03] MEDS: FERROUS SULFATE 325 MG (65 MG ELEMENTAL IRON) TAB PO SCH (08:34)
[2017-03-03] MEDS: VENLAFAXINE HCL XR 75 MG CAP PO SCH (08:35)
[2017-03-03] MEDS: METOPROLOL SUCCINATE 25 MG EXTENDED RELEASE TAB PO SCH (08:35)
[2017-03-03] MEDS: ATORVASTATIN 40 MG TAB PO SCH (08:35)
[2017-03-03] MEDS: SODIUM CHLORIDE 0.9% FLUSH 10 ML FLUSH IV FLUSH SCH ×2 (08:37→20:48)
[2017-03-03] MEDS ORDERED: CYCLOSPORINE OPTH 0.05% EACH EYE SCH (09:00)
--- NOTE | 2017-03-03 09:40 | MB ---
cc: PATRICE DIAZ M.D. DATE OF CONSULTATION 03/03/2017 REASON FOR CONSULTATION Left-sided hip and pelvic pain status post fall. HISTORY OF PRESENT ILLNESS Mrs. Fu is an 87-year-old female with a history of poor balance. She states yesterday she was walking through her home in the laundry room when she fell landing on her left hip and left elbow. She states she had a significant increase in left hip pain and had a difficult time with ambulation. She was brought to the [place] emergency room where she had x-rays performed, as well as a CT scan. She was found to have multiple fractures of her left-sided pelvis. She does have a history of CAD, atrial fibrillation, CT with four stent, placement of a pacemaker, hypertension, anemia, chronic kidney disease and multiple TIAs. She also notes she had a fall approximately 10 years ago sustaining a left hip fracture and underwent a left bipolar hemiarthroplasty per Dr. Patrice Diaz. She currently denies any significant chest pain or shortness of breath. She states the left hip pain is a constant aching sensation. She does not feel she is able to bear much weight due to the pain. The pain is somewhat tolerable with the prescribed pain medication. She denies any numbness or tingling in her leg and states she is able to move her foot up and down. REVIEW OF SYSTEMS A 12-point review of systems was performed and is negative except for what is mentioned in the HPI. PAST MEDICAL HISTORY Significant for: 1. Poor balance 2. CAD 3. Hyperthyroid 4. Atrial fibrillation 5. History of CT with placement of four cardiac stents, last stent being placed in 2015. 6. History of placement of a pacemaker. 7. Hypertension 8. Anemia 9. Chronic kidney disease 10. Multiple TIAs PAST SURGICAL HISTORY 1. Pacemaker 2. Left bipolar hemiarthroplasty approximately [address] Patrice Diaz. 3. Cardiac stents times four. MEDICATIONS Reported in the electronic medical records were reviewed. ALLERGIES No known allergies. SOCIAL HISTORY Denies tobacco use. Occasionally will have alcohol. PHYSICAL EXAM VITAL SIGNS: Temperature 98, pulse 61, respirations 16, blood pressure 172/70, pulse ox 94 on room air. GENERAL: The patient was seen in her hospital room. She is in bed with family in the room. She appears well-nourished, well-developed. She is in no acute distress. SKIN: Cool and dry. She does have a dressing over her left elbow currently related to recent abrasion status post fall. HEAD: Atraumatic, normocephalic, nontender. No apparent lacerations. EYES: Pupils are equal, round and reactive to light. Extraocular motions intact. ENT: Nose without bleeding, discharge and no noted cephalohematoma. NECK: Trachea midline. No JVD or lymphadenopathy. Supple and nontender. CARDIOVASCULAR: Heart regular rate and rhythm without murmurs, gallops or rubs. RESPIRATORY: Clear to auscultation bilaterally. No wheezes, rales or rhonchi. GASTROINTESTINAL: Soft, nontender and nondistended. NEUROLOGIC: The patient is awake and alert. Motor and sensory are grossly intact. Normal speech. MUSCULOSKELETAL: Bilateral upper extremities have a normal range of motion without pain. Once again noted is the dressing on the left elbow. Her neurovascular sensation is intact. Appropriate pulses bilateral upper extremities. Appropriate strength bilateral upper extremities. Left lower extremity, the patient has full function of the right lower extremity. Regarding her left lower sugar, she does have tenderness on palpation in the left hip region. Skin is intact without sign of infection. No significant ecchymosis. Thigh is soft. Negative Homans. Negative . She is neurovascular intact. Sensation is intact. Palpable dorsalis pedis pulse. She does have pain with any type of movement of the left hip. LABORATORY DATA White blood count 11.2, hemoglobin 12.1, hematocrit 38.2, platelet count 264. IMAGING STUDIES CT of the pelvis, 03/02/2017 [facility]. Impression, Left-sided pelvic fractures involving the sacral ala and anterior column of the acetabulum, symphysis pubis and the inferior pubic ramus. ASSESSMENT/PLAN 1. An 87-year-old female status post fall sustaining multiple pelvic fractures on the left side. 2. History of left bipolar hemiarthroplasty approximately [address] Patrice Diaz. Discussed the diagnosis and treatment options with the patient at bedside as well as her daughter. Recommend nonoperative management of her pelvic fractures. The patient should remain non-weightbearing for approximately six weeks. She is to receive physical therapy. Patient would benefit from DVT prophylaxis. The patient is orthopedically stable. She can follow up with the undersigned in approximately two weeks. The patient likely will need to be discharged to a group home facility. The patient and the patient's daughter have asked appropriate questions which have been answered. The case was also discussed in great detail with Dr. Patrice Diaz. Thank you for this consultation. Dictated by JOY Bailey MD JUDI Dey/MARIELA /8:38 AM /9:37 AM
--- NOTE | 2017-03-03 13:45 | EKG ---
Date Performed: 03/02/2017 Time Performed: 21:19:15 PTAGE: 87 years EKG: ELECTRONIC ATRIAL PACEMAKER ELECTRONIC VENTRICULAR PACEMAKER Since previous tracing, no sig nificant change noted ABNORMAL RHYTHM ECG PREVIOUS TRACING : 12/18/2016 12.09 DOCTOR: Ronak Ojeda Interpretating Date/Time 03/03/2017 13:43:54
[2017-03-03] MEDS ORDERED: cloNIDine HCL 0.1 MG TAB PO PRN (17:00)
[2017-03-04] VITALS (7 sets, daily range): BP systolic 124–156; BP diastolic 57–69; PULSE 63–72; RESP 17; TEMP 96.3–97.6; O2SAT 94–98
[2017-03-04] MEDS: MORPHINE SULFATE 4 MG/ML INJ IV PUSH PRN ×2 (03:52→14:36)
[2017-03-04] MEDS: LEVOTHYROXINE SODIUM 125 MCG TAB PO SCH (05:51)
[2017-03-04 07:52] LABS: AUTOMATED NEUTROPHIL # 4.8 TH/MM3 (1.8-7.7); BASOPHIL # 0.1 TH/MM3 (0-0.2); BASOPHIL % 0.8 % (0.0-2.0); EOSINOPHIL # 0.1 TH/MM3 (0-0.4); EOSINOPHIL % 2.3 % (0.0-4.0); HEMATOCRIT 28.9 % (35.0-46.0); HEMO FLAGS DIFF FINAL; LYMPH % 14.3 % (9.0-44.0); LYMPHOCYTE # 0.9 TH/MM3 (1.0-4.8); MEAN CELL VOLUME 101.5 FL (80.0-100.0); MEAN CORPUSCULAR HEMOGLOBIN 34.2 PG (27.0-34.0); MEAN CORPUSCULAR HGB CONC 33.7 % (32.0-36.0); MONO % 6.9 % (0.0-8.0); NEUT % 75.7 % (16.0-70.0); PLATELET COUNT 195 TH/MM3 (150-450); RED BLOOD COUNT 2.84 MIL/MM3 (4.00-5.30); RED CELL DISTRIBUTION WIDTH 15.4 % (11.6-17.2); WHITE BLOOD COUNT 6.4 TH/MM3 (4.0-11.0)
[2017-03-04] MEDS: FERROUS SULFATE 325 MG (65 MG ELEMENTAL IRON) TAB PO SCH (07:59)
[2017-03-04] MEDS: LACTOBACILLUS ACIDOPHILUS TAB PO SCH (07:59)
[2017-03-04] MEDS: METOPROLOL SUCCINATE 25 MG EXTENDED RELEASE TAB PO SCH (07:59)
[2017-03-04] MEDS: VENLAFAXINE HCL XR 75 MG CAP PO SCH (07:59)
[2017-03-04] MEDS: ATORVASTATIN 40 MG TAB PO SCH (07:59)
[2017-03-04] MEDS: SODIUM CHLORIDE 0.9% FLUSH 10 ML FLUSH IV FLUSH SCH ×2 (08:00→20:38)
[2017-03-04 08:15] LABS: BICARBONATE 21.6 MEQ/L (21.0-32.0); POTASSIUM 4.6 MEQ/L (3.5-5.1)
[2017-03-04] MEDS ORDERED: ACETAMINOPHEN/HYDROcodone 325 MG/5 MG TAB PO PRN (16:45)
--- NOTE | 2017-03-04 18:59 | HHI.PR ---
Subjective Remarks pain controlled denies cp/sob hemoglobin dropped from 12.1 to 9.7 Objective Vitals Vital Signs Date Time Temp Pulse Resp B/P Pulse Ox O2 Delivery O2 Flow Rate FiO2 03/04/17 16:00 97.3 63 17 129/57 94 03/04/17 14:44 16 03/04/17 11:35 96.3 63 17 126/67 95 03/04/17 07:56 96.4 66 17 124/58 95 03/04/17 04:05 97.1 72 17 146/69 98 03/04/17 00:05 97.6 69 17 156/68 98 03/03/17 23:00 60 03/03/17 20:05 97.4 65 17 121/66 99 03/03/17 20:00 64 I/O 03/03/17 03/03/17 03/03/17 03/04/17 03/04/17 03/04/17 07:00 15:00 23:00 07:00 15:00 23:00 Intake Total 600 ml 240 ml 240 ml 660 ml Output Total 300 ml Balance -300 ml 600 ml 240 ml 240 ml 660 ml Intake Oral 600 ml 240 ml 240 ml 660 ml Output Urine Total 300 ml # Voids 2 0 1 2 # Bowel Movements 1 0 0 0 0 Result Diagram: 03/04/17 0646 03/04/1746 Imaging Last Impressions Hip X-Ray 03/02/172034 Signed Impressions: Service Date/Time: Thursday, March 02, 2017 21:03 - CONCLUSION: Nondisplaced fracture of the superior left symphysis pubis. Intact total hip arthroplasty. Ken Pérez MD Elbow X-Ray 03/02/172034 Signed Impressions: Service Date/Time: Thursday, March 02, 2017 20:49 - CONCLUSION: No fracture seen. There is evidence of elbow effusion and significant soft tissue swelling about the olecranon. Ken Pérez MD Pelvis CT 03/02/17 0000 Signed Impressions: Service Date/Time: Thursday, March 02, 2017 22:18 - CONCLUSION: Left pelvic fractures involving sacral ala, anterior column of the acetabulum, symphysis pubis, and inferior pubic ramus. Ken Pérez MD Objective Remarks GENERAL: This is a well-nourished, well-developed patient, in no apparent distress. SKIN: Cool and dry. Left elbow ecchymotic with skin tear draining sanguinous fluid. HEAD: Atraumatic. Normocephalic. No temporal or scalp tenderness. EYES: Pupils equal round and reactive. Extraocular motions intact. ENT: Nose without bleeding, purulent drainage or septal hematoma. NECK: Trachea midline. No JVD or lymphadenopathy. Supple, nontender, no meningeal signs. CARDIOVASCULAR: Regular rate and rhythm without murmurs, gallops, or rubs. RESPIRATORY: Clear to auscultation. Breath sounds equal bilaterally. No wheezes , rales, or rhonchi. GASTROINTESTINAL: Abdomen soft, non-tender, nondistended. No hepato-splenomegaly , or palpable masses. No guarding. MUSCULOSKELETAL: Extremities without clubbing, cyanosis, or edema. Left hip tenderness. No calf tenderness. NEUROLOGICAL: Awake and alert. Motor and sensory grossly within normal limits. Normal speech. Medications and IVs Current Medications Medications (Trade) Dose Ordered Sig/Barbie Route Start Time Stop Time Status Last Admin (NS Flush) 2 ml UNSCH PRN IV FLUSH 03/03/17 01:00 (NS Flush) 2 ml BID IV FLUSH 03/03/17 09:00 03/04/17 08:00 (Narcan Inj) 0.4 mg UNSCH PRN IV 03/03/17 01:00 (Lactinex) 1 tab DAILY PO 03/03/17 09:00 03/04/17 07:59 (Synthroid) 125 mcg DAILY@06 PO 03/03/17 06:00 03/04/17 05:51 (Toprol Xl) 25 mg DAILY PO 03/03/17 09:00 03/04/17 07:59 Patient Own Medication PT OWN MED: (Cyclosporine Opth 0.... BID EACH EYE 03/03/17 09:00 Hold (Ferrous Sulfate) 325 mg DAILY PO 03/03/17 09:00 03/04/17 07:59 (Lipitor) 40 mg DAILY PO 03/03/17 09:00 03/04/17 07:59 (Effexor Xr) 75 mg DAILY PO 03/03/17 09:00 03/04/17 07:59 (Catapres) 0.1 mg Q6H PRN PO 03/03/17 17:00 ([place] 5-325 Mg) 1 tab Q4H PRN PO 03/04/17 16:45 ([place] 5-325 Mg) 2 tab Q4H PRN PO 03/04/17 16:45 A/P Problem List: (1) Multiple pelvic fractures ICD Code: S32.810A Status: Acute (2) CKD (chronic kidney disease) ICD Code: N18.9 Status: Chronic (3) Fall ICD Code: W19.XXXA Status: Acute Assessment and Plan 87 y/o female with a history of poor balance, CAD, AFIB, MO with 4 heart stents , last stent placed in 2016, pacemaker, HTN, anemia, CKD and multiple TIAs. Multiple pelvic fractures, s/p fall Pelvis CT reviewed and shows Left pelvic fractures involving sacral ala, anterior column of the acetabulum, symphysis pubis, and inferior pubic ramus. -Continue pain management. I will discontinue IV morphine and start the patient on oral [place]. -IV morphine for pain management -Case management for rehab options -Appreciate PT recommendations. Patient will need PT at inpatient rehabilitation. Left elbow evulsion, s/p fall Elbow xray reviewed and shows No fracture. There is evidence of elbow effusion and significant soft tissue swelling about the olecranon. - Ice as needed for swelling -Clean with saline and cover with non adhesive dressing. - Patient complaining of severe pain. Discussed with RN, he will get in touch with orthopedic surgery for further recommendations. Leukocytosis, wbc 11.2, likely reactive to trauma and pain 8/2 leukocytosis resolved CKD, creatine 2.0, baseline 1.9 -Avoid nephrotoxins -Creatinine stable HTN, AFIb, chronic -Cont home medication metoprolol -Monitor vitals and telemetry Anemia - Hemoglobin dropped from 12-9. Patient has a history of peptic ulcer disease and there is a Hemoccult obtained in our institution on 12/20/16 which was positive. I will continue to hold anticoagulation and consult GI for further recommendations. Will check stool blood Hemoccult. I will also consult cardiology depending on results. Discharge Planning pending GI consult - Hemoccult Problem Qualifiers (1) Multiple pelvic fractures: Qualified Code: S32.810A - Multiple closed fractures of pelvis with stable disruption of pelvic [place], initial encounter (2) CKD (chronic kidney disease): Qualified Code: N18.3 - Stage 3 chronic kidney disease (3) Fall: Qualified Code: W19.XXXA - Fall, initial encounter Walker Omer MD Mar 04, 2017 18:59
[2017-03-05] VITALS (7 sets, daily range): BP systolic 121–154; BP diastolic 54–69; PULSE 60–72; RESP 16–18; TEMP 96–98.5; O2SAT 92–96
[2017-03-05] MEDS: ACETAMINOPHEN/HYDROcodone 325 MG/5 MG TAB PO PRN ×4 (00:41→19:53)
[2017-03-05] MEDS: LEVOTHYROXINE SODIUM 125 MCG TAB PO SCH (06:31)
[2017-03-05 07:57] LABS: HEMATOCRIT 29.4 % (35.0-46.0); MEAN CELL VOLUME 102.9 FL (80.0-100.0); MEAN CORPUSCULAR HEMOGLOBIN 33.3 PG (27.0-34.0); MEAN CORPUSCULAR HGB CONC 32.4 % (32.0-36.0); PLATELET COUNT 198 TH/MM3 (150-450); RED BLOOD COUNT 2.86 MIL/MM3 (4.00-5.30); RED CELL DISTRIBUTION WIDTH 15.5 % (11.6-17.2); REVIEW FLAG FINAL; WHITE BLOOD COUNT 6.9 TH/MM3 (4.0-11.0)
[2017-03-05 08:24] LABS: BICARBONATE 22.6 MEQ/L (21.0-32.0); POTASSIUM 4.8 MEQ/L (3.5-5.1)
[2017-03-05] MEDS: METOPROLOL SUCCINATE 25 MG EXTENDED RELEASE TAB PO SCH (10:04)
[2017-03-05] MEDS: LACTOBACILLUS ACIDOPHILUS TAB PO SCH (10:04)
[2017-03-05] MEDS: FERROUS SULFATE 325 MG (65 MG ELEMENTAL IRON) TAB PO SCH (10:04)
[2017-03-05] MEDS: VENLAFAXINE HCL XR 75 MG CAP PO SCH (10:04)
[2017-03-05] MEDS: ATORVASTATIN 40 MG TAB PO SCH (10:05)
[2017-03-05] MEDS: SODIUM CHLORIDE 0.9% FLUSH 10 ML FLUSH IV FLUSH SCH ×2 (10:06→19:53)
--- NOTE | 2017-03-05 10:11 | PD.CONS ---
HPI History of Present Illness This is a 87 year old who is on Plavix and Eliquis for history of coronary artery disease, multiple TIA, and atrial fibrillation, who presented to the ER for evaluation of left elbow and hip pain after losing her balance and sustaining a fall at home. She sustained multiple pelvic fractures involving the sacral sacral ala, anterior column of the acetabulum, symphysis pubis, and inferior pubic ramus. Orthopaedic surgery is following and they have recommended nonoperative management of her pelvic fractures with non- weightbearing for six weeks. She was noted to have a drop in her Hgb from 12.1/ 38.2 to 9.7/28.9 and there is a reported history of peptic ulcer disease. GI has been consulted for further evaluation. Of note, in December of 2016, her hgb ranged from 9.5- 10.4. Her plavix and eliquis are on hold. The patient has a history of peptic ulcer disease many years ago. She reports that she had an EGD /Colonoscopy after this about 2 years ago and that they were okay. She does have chronic anemia since childhood and is followed by Dr. Parker for hematology. She reports her baseline hemoglobin is around 10, but she did require iron transfusions back in December/January of this past year. She states that Dr. Parker did not feel that her anemia was related to GI blood loss at that time. She denies any obvious GI blood loss. She denies any heartburn, reflux, weight loss, nausea, vomiting, abdominal pain, constipation, melena, or hematochezia. She does have IBS, predominantly diarrhea, but states this is controlled by avoiding triggers such as MSG. She and her daughter do not feel that this is GI blood loss and would like to avoid GI procedures unless absolutely necessary. ( Naomi Baez) PFSH Past Medical History CAD Hypothyroidism Atrial fibrillation CAD/WA Anemia Chronic kidney disease Multiple TIA Hypertension Macular degeneration Depression PUD Past Surgical History Pacemaker Left hip replacement Cardiac Stents x 4 (Naomi Baez) Coded Allergies: No Known Allergies (Verified , 03/02/17) Medications Allergies Coded Allergies Type Severity Reaction Last Updated Verified No Known Allergies 03/02/17 Yes Active Scripts Medications Dose Route/Sig Days Date Category Lutein 6 Mg Cap 6 Mg PO DAILY 03/02/17 Reported Iron (Ferrous Sulfate) 325 Mg Cap 325 Mg PO DAILY 03/02/17 Reported Levothyroxine (Levothyroxine Sodium) 125 Mcg Tab 125 Mcg PO DAILY 03/02/17 Reported Eliquis (Apixaban) 2.5 Mg Tab 2.5 Mg PO BID 12/20/16 Rx Plavix (Clopidogrel Bisulfate) 75 Mg Tab 75 Mg PO DAILY 12/20/16 Rx Metoprolol Succinate ER 24 HR (Metoprolol Succinate) 25 Mg Tab 25 Mg PO DAILY 12/20/16 Rx Probiotic (Lactobacillus Acidophilus) 1 Cap Cap 1 Cap PO DAILY 12/18/16 Reported Crestor (Rosuvastatin Calcium) 20 Mg Tab 20 Mg PO DAILY 12/18/16 Reported Restasis Opth 0.05% (Cyclosporine Opth 0.05%) 0.05% Emul 1 Drop EACH EYE BID 12/18/16 Reported Effexor (Venlafaxine HCl) 75 Mg Tab 75 Mg PO DAILY 12/18/16 Reported Family History Mother heart disease, polycythemia Dad had heart disease and pacemaker Daughter has diabetes Past Surgical History Social History No tobacco, occasional etoh use (Naomi Baez) Review of Systems Constitutional: COMPLAINS OF: Fatigue, Dizziness (occasional lightheadness), DENIES: Fever, Weight loss, Chills, Change in appetite Respiratory: COMPLAINS OF: Shortness of breath (with strenuous activity), DENIES: Cough Cardiovascular: DENIES: Chest pain, Palpitations Gastrointestinal: COMPLAINS OF: Diarrhea (occasional, IBS related), DENIES: Abdominal pain, Black stools, Bloody stools, Constipation, Nausea, Vomiting, Difficulty Swallowing, Anorexia, Swelling of Abdomen, Heartburn, Hematemesis Musculoskeletal: COMPLAINS OF: Joint pain, Stiffness Neurologic: DENIES: Headache Psychiatric: DENIES: Confusion (Naomi Baez) GI Exam Vitals I&O Vital Signs Date Time Temp Pulse Resp B/P Pulse Ox O2 Delivery O2 Flow Rate FiO2 03/05/17 04:20 96.0 72 16 154/69 92 03/05/17 00:15 98.5 72 17 133/63 95 03/04/17 20:20 97.5 71 17 128/61 95 03/04/17 20:00 64 03/04/17 16:00 97.3 63 17 129/57 94 03/04/17 14:44 16 03/04/17 11:35 96.3 63 17 126/67 95 I/O 03/04/17 03/04/17 03/04/17 03/05/17 03/05/17 03/05/17 07:00 15:00 23:00 07:00 15:00 23:00 Intake Total 240 ml 660 ml 240 ml 240 ml Balance 240 ml 660 ml 240 ml 240 ml Intake Oral 240 ml 660 ml 240 ml 240 ml # Voids 1 2 1 1 # Bowel Movements 0 0 0 0 Imaging Last Impressions Hip X-Ray 03/02/172034 Signed Impressions: Service Date/Time: Thursday, March 02, 2017 21:03 - CONCLUSION: Nondisplaced fracture of the superior left symphysis pubis. Intact total hip arthroplasty. Ken Pérez MD Elbow X-Ray 03/02/172034 Signed Impressions: Service Date/Time: Thursday, March 02, 2017 20:49 - CONCLUSION: No fracture seen. There is evidence of elbow effusion and significant soft tissue swelling about the olecranon. Ken Pérez MD Pelvis CT 03/02/17 0000 Signed Impressions: Service Date/Time: Thursday, March 02, 2017 22:18 - CONCLUSION: Left pelvic fractures involving sacral ala, anterior column of the acetabulum, symphysis pubis, and inferior pubic ramus. Ken Pérez MD Laboratory Test 03/05/17 07:30 White Blood Count 6.9 TH/MM3 Red Blood Count 2.86 MIL/MM3 Hemoglobin 9.5 GM/DL Hematocrit 29.4 % Mean Corpuscular Volume 102.9 FL Mean Corpuscular Hemoglobin 33.3 PG Mean Corpuscular Hemoglobin 32.4 % Concent Red Cell Distribution Width 15.5 % Platelet Count 198 TH/MM3 Mean Platelet Volume 7.9 FL Sodium Level 140 MEQ/L Potassium Level 4.8 MEQ/L Chloride Level 110 MEQ/L Carbon Dioxide Level 22.6 MEQ/L Anion Gap 7 MEQ/L Blood Urea Nitrogen 32 MG/DL Creatinine 1.98 MG/DL Estimat Glomerular Filtration 24 ML/MIN Rate Random Glucose 111 MG/DL Calcium Level 8.0 MG/DL Physical Examination HEENT: Normocephalic; atraumatic; no jaundice. CHEST: CTA CARDIAC: RRR ABDOMEN: Soft, nondistended, nontender; no hepatosplenomegaly; bowel sounds are present in all four quadrants. EXTREMITIES: Decreased ROM LUE, BLE, more on left SKIN: Normal; no rash; no jaundice. 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 (Naomi Baez) Assessment and Plan Plan ASSESSMENT: - Acute on chronic anemia. Pt reports long history of anemia since childbirth. Denies Mediterranean ancestry. Followed by Dr. Parker, states that her baseline is 10. She states she was seen in December/January, at which time she required iron transfusions. She states that Dr. Parker did not feel this was related to GI blood loss at that time. She does have a hx of PUD, but states that she had EGD/Colonoscopy after this and that she has not had any further issues with that. Her last EGD/Colonoscopy was about 2 years ago, she does not recall who did it. They were not done by our service (reviewed our outpt records). She denies any GI symptoms or blood loss other than occasional diarrhea associated with her IBS (predominantly diarrhea). Controlled by avoiding MSG. HH on admission 12.1/38.2, although pt states her hgb is never that high and around 10. In December of this year, her HH ranged from 9.5-10.4. She is not wanting GI procedures unless necessary. It would be difficulty to do the bowel prep/ colonoscopy with her pelvic fractures. Will continue PPI, get Iron studies, and monitor HH. Consider hematology consult if anemia worsens. - IBS, predominantly diarrhea. Controlled by avoiding MSG. - Pelvic fractures involving sacral sacral ala, anterior column of the acetabulum, symphysis pubis, and inferior pubic ramus. Orthopaedic surgery is following and they have recommended nonoperative management of her pelvic fractures with non- weightbearing for six weeks. - CAD, s/p stenting. On Plavix at home- on hold per attending. - Atrial fibrillation, Multiple TIAs, on Eliquis/Plavix at home, on hold per attending. - CKD per attending. Creat. . - Hypothyroidism, HTN, Depression per attending. PLAN: - RACHEL - Hemoccult stool - Iron studies - Cont. PPI - Monitor HH - Transfuse as necessary - Consider hematology evaluation if worsening anemia- followed by Dr. Parker and recently required iron transfusions - Consider EGD +/- Colonoscopy if active bleeding. Pt would like to avoid if possible and states that her whip sawyer does not feel she has GI blood loss. - Pt seen and examined by Dr. Coelho and myself and this note is written on her behalf (Naomi Baez) Physician Comments seen, examined agree with above she has a history of NSAIDS use, bleeding ulcer - need to r/o recurrent ulcer she also had a capsule endoscopy as an op many years ago -does not recall results discussed with patient and family -we will schedule egd in am (Antonietta Coelho MD) Naomi Baez Mar 05, 2017 10:10 Antonietta Coelho MD Mar 05, 2017 13:48
[2017-03-05 12:39] LABS: TRANSFERRIN IRON PROFILE 195 MG/DL (200-360)
--- NOTE | 2017-03-05 12:40 | HHI.PR ---
Subjective Remarks patient feels good pain is controlled worst when moving was able to transfer denies melena or hematochezia Objective Vitals Vital Signs Date Time Temp Pulse Resp B/P Pulse Ox O2 Delivery O2 Flow Rate FiO2 03/05/17 08:00 96.8 62 18 122/54 93 03/05/17 04:20 96.0 72 16 154/69 92 03/05/17 00:15 98.5 72 17 133/63 95 03/04/17 20:20 97.5 71 17 128/61 95 03/04/17 20:00 64 03/04/17 16:00 97.3 63 17 129/57 94 03/04/17 14:44 16 I/O 03/04/17 03/04/17 03/04/17 03/05/17 03/05/17 03/05/17 07:00 15:00 23:00 07:00 15:00 23:00 Intake Total 240 ml 660 ml 240 ml 240 ml Balance 240 ml 660 ml 240 ml 240 ml Intake Oral 240 ml 660 ml 240 ml 240 ml # Voids 1 2 1 1 # Bowel Movements 0 0 0 0 Result Diagram: 03/05/1730 03/05/1730 Imaging Last Impressions Hip X-Ray 03/02/172034 Signed Impressions: Service Date/Time: Thursday, March 02, 2017 21:03 - CONCLUSION: Nondisplaced fracture of the superior left symphysis pubis. Intact total hip arthroplasty. Ken Pérez MD Elbow X-Ray 03/02/172034 Signed Impressions: Service Date/Time: Thursday, March 02, 2017 20:49 - CONCLUSION: No fracture seen. There is evidence of elbow effusion and significant soft tissue swelling about the olecranon. Ken Pérez MD Pelvis CT 03/02/17 0000 Signed Impressions: Service Date/Time: Thursday, March 02, 2017 22:18 - CONCLUSION: Left pelvic fractures involving sacral ala, anterior column of the acetabulum, symphysis pubis, and inferior pubic ramus. Ken Pérez MD Objective Remarks GENERAL: This is a well-nourished, well-developed patient, in no apparent distress. SKIN: Cool and dry. Left elbow ecchymotic with skin tear draining sanguinous fluid. HEAD: Atraumatic. Normocephalic. No temporal or scalp tenderness. EYES: Pupils equal round and reactive. Extraocular motions intact. ENT: Nose without bleeding, purulent drainage or septal hematoma. NECK: Trachea midline. No JVD or lymphadenopathy. Supple, nontender, no meningeal signs. CARDIOVASCULAR: Regular rate and rhythm without murmurs, gallops, or rubs. RESPIRATORY: Clear to auscultation. Breath sounds equal bilaterally. No wheezes , rales, or rhonchi. GASTROINTESTINAL: Abdomen soft, non-tender, nondistended. No hepato-splenomegaly , or palpable masses. No guarding. MUSCULOSKELETAL: Extremities without clubbing, cyanosis, or edema. Left hip tenderness. No calf tenderness. NEUROLOGICAL: Awake and alert. Motor and sensory grossly within normal limits. Normal speech. Medications and IVs Current Medications Medications (Trade) Dose Ordered Sig/Barbie Route Start Time Stop Time Status Last Admin (NS Flush) 2 ml UNSCH PRN IV FLUSH 03/03/17 01:00 (NS Flush) 2 ml BID IV FLUSH 03/03/17 09:00 03/05/17 10:06 (Narcan Inj) 0.4 mg UNSCH PRN IV 03/03/17 01:00 (Lactinex) 1 tab DAILY PO 03/03/17 09:00 03/05/17 10:04 (Synthroid) 125 mcg DAILY@06 PO 03/03/17 06:00 03/05/17 06:31 (Toprol Xl) 25 mg DAILY PO 03/03/17 09:00 03/05/17 10:04 Patient Own Medication PT OWN MED: (Cyclosporine Opth 0.... BID EACH EYE 03/03/17 09:00 Hold (Ferrous Sulfate) 325 mg DAILY PO 03/03/17 09:00 03/05/17 10:04 (Lipitor) 40 mg DAILY PO 03/03/17 09:00 03/05/17 10:05 (Effexor Xr) 75 mg DAILY PO 03/03/17 09:00 03/05/17 10:04 (Catapres) 0.1 mg Q6H PRN PO 03/03/17 17:00 ([place] 5-325 Mg) 1 tab Q4H PRN PO 03/04/17 16:45 03/05/17 11:11 ([place] 5-325 Mg) 2 tab Q4H PRN PO 03/04/17 16:45 (Protonix) 40 mg DAILY PO 03/05/17 11:30 Urinary Catheter: No Vascular Central Line Catheter: No A/P Problem List: (1) Multiple pelvic fractures ICD Code: S32.810A Status: Acute Plan: 87-year-old female with a history of poor balance, CAD, atrial fibrillation on chronic ventilation with Eliquis, [place] with 4 heart stents, last stent placed in 2015, pacemaker hypertension, anemia, CK-MB and history of multiple TIAs. Pelvic CT as above showed pelvic fractures involving sacral ala, anterior colon of the acetabulum, symphysis pubis and inferior pubic rami. Orthopedic surgery consulted, recommended nonoperative management of her pelvic fractures with no weightbearing for 6 weeks. PT consulted. Appreciate recommendations, patient will need PT at inpatient rehabilitation center. (2) Fall ICD Code: W19.XXXA Status: Acute Plan: As above. Continue PT. (3) CKD (chronic kidney disease), stage IV ICD Code: N18.4 Status: Acute Plan: Upon review of records patient has a baseline creatinine of 1.9-2. Creatinine seems to be at baseline, continue to monitor BUN/creatinine, avoid nephrotoxins. (4) Anemia ICD Code: D64.9 Status: Acute Plan: Acute on chronic anemia. The patient has history of long-standing anemia and peptic ulcer disease in the past. Patient had EGD for/colonoscopy about 2 years ago. The patient denies any GI symptoms or melena. Upon review of her records the patient has had a hemoglobin ranging from 9.5-10.4. Hemoglobin on admission 12.1 which dropped to 9.5. There is also a Hemoccult obtained in our institution on 12/24/16 which was positive. GI has been consulted, awaiting stool Hemoccult, continue PPI, follow up iron studies and monitor H&H. I will resume Plavix today and if Hemoccult in the stool is negative then the patient will be able to be discharge to follow-up as an outpatient. (5) IBS (irritable bowel syndrome) ICD Code: K58.9 Status: Acute Plan: Predominantly diarrhea. Stable. Controlled by avoiding MSG. (6) CAD (coronary artery disease) ICD Code: I25.10 Status: Acute Plan: Status post stenting. On Plavix at home. Plavix held initially due to drop in hemoglobin, however hemoglobin now stable and no evidence of major GI bleed. I will resume Plavix today. Continue statin, beta debbie. (7) Atrial fibrillation ICD Code: I48.91 Status: Acute Plan: Status post pacemaker. Patient on Eliquis for chronic anticoagulation which has been held. Continue to hold for now until GI bleed workup is completed. (8) HTN (hypertension) ICD Code: I10 Status: Acute Plan: Stable. Continue antihypertensive medications. The patient currently on metoprolol succinate 25 maintenance by mouth daily. Continue clonidine as needed for elevated bp. Discharge Planning Possible Dc in am - pending Hemoccult. Problem Qualifiers (1) Multiple pelvic fractures: Qualified Code: S32.810A - Multiple closed fractures of pelvis with stable disruption of pelvic [place], initial encounter (2) Fall: Qualified Code: W19.XXXA - Fall, initial encounter (3) Anemia: Qualified Code: D64.9 - Anemia, unspecified type Walker Omer MD Mar 05, 2017 12:40
[2017-03-05 12:42] LABS: FERRITIN 196 NG/ML (8-252)
[2017-03-05] MEDS: PANTOPRAZOLE SOD 40 MG DELAYED RELEASE TAB PO SCH (12:47)
[2017-03-06 00:15] VITALS: BP 123/67; PULSE 60; RESP 18; TEMP 97.2; O2SAT 96
[2017-03-06 04:20] VITALS: BP 120/59; PULSE 60; RESP 17; TEMP 96.2; O2SAT 95
[2017-03-06] MEDS: LEVOTHYROXINE SODIUM 125 MCG TAB PO SCH (05:41)
[2017-03-06] MEDS: ACETAMINOPHEN/HYDROcodone 325 MG/5 MG TAB PO PRN ×2 (05:42→11:21)
[2017-03-06 07:57] VITALS: BP 133/63; PULSE 61; RESP 18; TEMP 96.4; O2SAT 95
[2017-03-06] MEDS: SODIUM CHLORIDE 0.9% FLUSH 10 ML FLUSH IV FLUSH SCH (09:00)
[2017-03-06] MEDS ORDERED: METOPROLOL TARTRATE 5 MG/5 ML VIAL IV PUSH ONE (09:26)
[2017-03-06] MEDS ORDERED: PROPOFOL 200 MG/20 ML AMP IV ONE (09:26)
[2017-03-06] MEDS ORDERED: PHENYLEPH/NS 1000 MCG/10 ML SYR IV ONE (09:26)
--- NOTE | 2017-03-06 09:38 | GIPROC ---
[facility] [address] [facility]. [facility], [address] EGD PROCEDURE REPORT EXAM DATE: 03/06/2017 PATIENT NAME: Dominique Fu MR #: [id number] BIRTHDATE: 1930 ATTENDING: Antonietta Coelho MD ORDER #: [id number] CONSULTANT: Freddy Ozuna and Shirin Emery STATUS: inpatient INDICATIONS: The patient is a 87 yr old female here for an EGD due to anemia history of pud PROCEDURE PERFORMED: EGD w/ biopsy MEDICATIONS: None and Per Anesthesia. TOPICAL ANESTHETIC: none CONSENT: The patient understands the risks and benefits of the procedure and understands that these risks include, but are not limited to: sedation, allergic reaction, infection, perforation and/or bleeding. Alternative means of evaluation and treatment include, among others: physical exam, x-rays, and/or surgical intervention. The patient elects to proceed with this endoscopic procedure. medical equipment was checked for proper function. Hand hygiene and appropriate measures for infection prevention was taken. After the risks, benefits and alternatives of the procedure were thoroughly explained, Informed consent was verified, confirmed and timeout was successfully executed by the treatment team. The patient was anesthetized with topical anesthesia and the Pentax [id number] endoscope was introduced through the mouth and advanced to the second portion of the duodenum. Retroflexed views revealed a hiatal hernia The gastroscope was then slowly withdrawn and removed. Duodenitis second portion-biopsy superficial ulcerations antrum-biopsy esophagitis distal esophagus -biopsy. ADVERSE EVENTS: There were no complications. IMPRESSIONS: 1. Duodenitis second portion-biopsy superficial ulcerations antrum-biopsy esophagitis distal esophagus -biopsy 2. Retroflexed views revealed a hiatal hernia RECOMMENDATIONS: 1. Await biopsy results. Biopsy results will not be ready for 7-10 days. If you don't hear from us in two weeks, call our office for biopsy results. 2. Anti-reflux regimen 3. Continue PPI 4. Avoid NSAIDS PATIENT CONDITION: stable DISPOSITION: Inpatient REPEAT EXAM: EGD pending biopsy results Antonietta Coelho MD eSigned: Antonietta Coelho MD 03/06/2017 9:38 AM cc: PATIENT NAME: Dominique Fu MR#: [id number]
[2017-03-06] MEDS: LACTOBACILLUS ACIDOPHILUS TAB PO SCH (11:22)
[2017-03-06] MEDS: VENLAFAXINE HCL XR 75 MG CAP PO SCH (11:22)
[2017-03-06] MEDS: PANTOPRAZOLE SOD 40 MG DELAYED RELEASE TAB PO SCH (11:22)
[2017-03-06] MEDS: FERROUS SULFATE 325 MG (65 MG ELEMENTAL IRON) TAB PO SCH (11:22)
[2017-03-06] MEDS: ATORVASTATIN 40 MG TAB PO SCH (11:22)
[2017-03-06] MEDS: METOPROLOL SUCCINATE 25 MG EXTENDED RELEASE TAB PO SCH (11:23)
[2017-03-06 12:00] VITALS: BP 150/67; PULSE 60; RESP 16; TEMP 95.6; O2SAT 93
[2017-03-06] MEDS ORDERED: CLOPIDOGREL 75 MG TAB PO SCH (14:00)
[2017-03-06 15:10] VITALS: PULSE 60
[2017-03-06] MEDS ORDERED: PANT40TA3 PO (15:37)
[2017-03-06] MEDS ORDERED: HYDR-3516 PO (15:37)
--- NOTE | 2017-03-06 15:40 | HHI.DCPOC ---
Discharge Care Plan Diagnosis: (1) Fall (2) Multiple pelvic fractures (3) CKD (chronic kidney disease) (4) Atrial fibrillation (5) Anemia (6) CAD (coronary artery disease) (7) HTN (hypertension) (8) IBS (irritable bowel syndrome) (9) CKD (chronic kidney disease), stage IV (10) Esophagitis (11) Duodenitis Goals to Promote Your Health * To prevent worsening of your condition and complications * To maintain your health at the optimal level Directions to Meet Your Goals Take your medications as prescribed Follow your dietary instruction Follow activity as directed Keep your appointments as scheduled Take your immunizations and boosters as scheduled If your symptoms worsen call your PCP, if no PCP go to Urgent Care Center or Emergency Room Smoking is Dangerous to Your Health. Avoid second hand smoke Call the 24-hour hour crisis hotline for domestic abuse at Walker Omer MD Mar 06, 2017 15:40
--- NOTE | 2017-03-06 15:45 | HHI.DS ---
Discharge Summary Admission Date Mar 03, 2017 at 00:39 Discharge Date: Mar 06, 2017 Admitting Diagnosis Fall, multipe pelvic fx (1) Multiple pelvic fractures ICD Code: S32.810A (2) Fall ICD Code: W19.XXXA (3) CKD (chronic kidney disease), stage IV ICD Code: N18.4 (4) Anemia ICD Code: D64.9 (5) IBS (irritable bowel syndrome) ICD Code: K58.9 (6) CAD (coronary artery disease) ICD Code: I25.10 (7) Atrial fibrillation ICD Code: I48.91 (8) HTN (hypertension) ICD Code: I10 Brief History - From Admission Written by JARED Pal acting as scribe for [Khanh] on 03/03/17 at 01: 51. 87 y/o female with a history of poor balance, CAD, AFIB, [place] with 4 heart stents , last stent placed in 2016, pacemaker, HTN, anemia, CKD and multiple TIAs. She states she go out of car, and was walking through the laundry room, lost her balance and fell. She states she fell on her left hip and left elbow. She denies any chest pain, sob, blurry vision, or dizziness prior to fall. She denies hitting her head. She states she has been working on her balance at the [facility], denies using a cane or walker. Denies any nausea, vomiting, red colored stools, or dysuria. She is on Plavix and Eliquis at home. CBC/BMP: 03/05/17 0730 03/05/17 0730 Significant Findings Laboratory Tests Test 03/04/17 03/05/17 06:46 07:30 Red Blood Count 2.84 MIL/MM3 2.86 MIL/MM3 (4.00-5.30) (4.00-5.30) Hemoglobin 9.7 GM/DL 9.5 GM/DL (11.6-15.3) (11.6-15.3) Hematocrit 28.9 % 29.4 % (35.0-46.0) (35.0-46.0) Mean Corpuscular Volume 101.5 FL 102.9 FL (80.0-100.0) (80.0-100.0) Mean Corpuscular Hemoglobin 34.2 PG (27.0-34.0) Neutrophils (%) (Auto) 75.7 % (16.0-70.0) Lymphocytes # (Auto) 0.9 TH/MM3 (1.0-4.8) Chloride Level 110 MEQ/L 110 MEQ/L (98-107) (98-107) Blood Urea Nitrogen 28 MG/DL (7-18) 32 MG/DL (7-18) Creatinine 1.92 MG/DL 1.98 MG/DL (0.50-1.00) (0.50-1.00) Estimat Glomerular Filtration 25 ML/MIN (>89) 24 ML/MIN (>89) Rate Random Glucose 108 MG/DL 111 MG/DL (74-106) (74-106) Calcium Level 8.0 MG/DL 8.0 MG/DL (8.5-10.1) (8.5-10.1) Iron Level 26 MCG/DL (50-170) Percent Iron Saturation 9.5 % (20-50) Imaging Last Impressions Hip X-Ray 03/02/172034 Signed Impressions: Service Date/Time: Thursday, March 02, 2017 21:03 - CONCLUSION: Nondisplaced fracture of the superior left symphysis pubis. Intact total hip arthroplasty. Ken Pérez MD Elbow X-Ray 03/02/172034 Signed Impressions: Service Date/Time: Thursday, March 02, 2017 20:49 - CONCLUSION: No fracture seen. There is evidence of elbow effusion and significant soft tissue swelling about the olecranon. Ken Pérez MD Pelvis CT 03/02/17 0000 Signed Impressions: Service Date/Time: Thursday, March 02, 2017 22:18 - CONCLUSION: Left pelvic fractures involving sacral ala, anterior column of the acetabulum, symphysis pubis, and inferior pubic ramus. Ken Pérez MD PE at Discharge GENERAL: This is a well-nourished, well-developed patient, in no apparent distress. SKIN: Cool and dry. Left elbow ecchymotic with skin tear draining sanguinous fluid. HEAD: Atraumatic. Normocephalic. No temporal or scalp tenderness. EYES: Pupils equal round and reactive. Extraocular motions intact. ENT: Nose without bleeding, purulent drainage or septal hematoma. NECK: Trachea midline. No JVD or lymphadenopathy. Supple, nontender, no meningeal signs. CARDIOVASCULAR: Regular rate and rhythm without murmurs, gallops, or rubs. RESPIRATORY: Clear to auscultation. Breath sounds equal bilaterally. No wheezes , rales, or rhonchi. GASTROINTESTINAL: Abdomen soft, non-tender, nondistended. No hepato-splenomegaly , or palpable masses. No guarding. MUSCULOSKELETAL: Extremities without clubbing, cyanosis, or edema. Left hip tenderness. No calf tenderness. NEUROLOGICAL: Awake and alert. Motor and sensory grossly within normal limits. Normal speech. Pt Condition on Discharge: Stable Discharge Disposition: Discharge to SNF Discharge Time: > 30 minutes Discharge Instructions DIET: Follow Instructions for: Heart Healthy Diet Activities you can perform: See Additionl Instruction Other Activity Instructions: Nonweightbearing for 6 weeks. Walker Omer MD Mar 06, 2017 15:45
[2017-03-06 16:00] VITALS: BP 142/66; PULSE 62; RESP 18; TEMP 96.2; O2SAT 94
[2017-03-06] MEDS ORDERED: APIXABAN 2.5 MG TABLET PO SCH (21:00)
== END 2017-03-06 17:47 | DRG 535 ==
LOC: NEPC 20:22 → NEDA 03-03 00:39 → N06B 03-03 03:38
PROVIDERS: ADMIT Hospitalist; ATTEND Hospitalist
PROC: 0DB68ZX Excision of Stomach, Via Natural or Artificial Opening Endoscopic, Diagnostic (ICD-10-PCS; 2017-03-06)
PROC: 0DB38ZX Excision of Lower Esophagus, Via Natural or Artificial Opening Endoscopic, Diagnostic (ICD-10-PCS; 2017-03-06)
PROC: 0DB98ZX Excision of Duodenum, Via Natural or Artificial Opening Endoscopic, Diagnostic (ICD-10-PCS; principal; 2017-03-06 09:20)
DX: S32.82XA Multiple fractures of pelvis without disruption of pelvic ring, initial encounter for closed fracture (principal); S32.432A Displaced fracture of anterior column [iliopubic] of left acetabulum, initial encounter for closed fracture; N18.4 Chronic kidney disease, stage 4 (severe); S32.10XA Unspecified fracture of sacrum, initial encounter for closed fracture; I48.2 Chronic atrial fibrillation; K25.9 Gastric ulcer, unspecified as acute or chronic, without hemorrhage or perforation; D64.9 Anemia, unspecified; I12.9 Hypertensive chronic kidney disease with stage 1 through stage 4 chronic kidney disease, or unspecified chronic kidney disease; K20.9 Esophagitis, unspecified; K29.80 Duodenitis without bleeding; I25.10 Atherosclerotic heart disease of native coronary artery without angina pectoris; K58.0 Irritable bowel syndrome with diarrhea; S51.012A Laceration without foreign body of left elbow, initial encounter; H35.30 Unspecified macular degeneration; I25.2 Old myocardial infarction; E03.9 Hypothyroidism, unspecified; D72.829 Elevated white blood cell count, unspecified; K44.9 Diaphragmatic hernia without obstruction or gangrene; F32.9 Major depressive disorder, single episode, unspecified; W18.30XA Fall on same level, unspecified, initial encounter; Y92.008 Other place in unspecified non-institutional (private) residence as the place of occurrence of the external cause; Z86.73 Personal history of transient ischemic attack (TIA), and cerebral infarction without residual deficits; Z95.0 Presence of cardiac pacemaker; Z95.5 Presence of coronary angioplasty implant and graft; Z79.02 Long term (current) use of antithrombotics/antiplatelets
CPT/HCPCS: 72192; 73080; 73502; 80048; 82607; 82728; 82746; 83540; 83550; 85025; 85027; 85610; 85730; 88305; 88312; 93005; 96360; J2270; J2370; J7030

== ENCOUNTER 2017-04-22 10:37 | Inpatient (IN) | payer MEDICARE ==
[~2017-04-22] VITALS: Ht 170.2 cm; Wt 76.7 kg
[2017-04-22] VITALS (9 sets, daily range): BP systolic 138–166; BP diastolic 68–74; PULSE 60–70; RESP 15–20; TEMP 97.4–98; O2SAT 99–100
[~2017-04-22 10:37] MED LIST changes: +FERR325C PO; +HYDR-3516 PO; +LEVO125T4 PO; +LUTE6CAP2 PO; +PANT40TA3 PO; -SYNT112T PO
[2017-04-22 11:25] LABS: AUTOMATED NEUTROPHIL # 7.9 TH/MM3 (1.8-7.7); BASOPHIL # 0.1 TH/MM3 (0-0.2); BASOPHIL % 0.6 % (0.0-2.0); EOSINOPHIL # 0.2 TH/MM3 (0-0.4); LYMPH % 9.3 % (9.0-44.0); LYMPHOCYTE # 0.9 TH/MM3 (1.0-4.8); MEAN CORPUSCULAR HEMOGLOBIN 33.5 PG (27.0-34.0); MEAN CORPUSCULAR HGB CONC 32.2 % (32.0-36.0); MONO % 5.2 % (0.0-8.0); NEUT % 82.9 % (16.0-70.0); PLATELET COUNT 373 TH/MM3 (150-450); RED BLOOD COUNT 1.86 MIL/MM3 (4.00-5.30); RED CELL DISTRIBUTION WIDTH 17.1 % (11.6-17.2); WHITE BLOOD COUNT 9.5 TH/MM3 (4.0-11.0)
[2017-04-22 11:29] LABS: INTERNATIONAL NORMALIZED RATIO 1.1 RATIO
[2017-04-22 11:35] LABS: ALT (GPT) 52 U/L (10-53); ANION GAP 9 MEQ/L (5-15); AST (GOT) 26 U/L (15-37); BICARBONATE 22.2 MEQ/L (21.0-32.0); BLOOD UREA NITROGEN 38 MG/DL (7-18); CHLORIDE 108 MEQ/L (98-107); GLOMERULAR FILTRATION RATE 27 ML/MIN (>89); POTASSIUM 4.5 MEQ/L (3.5-5.1); SODIUM (NA) 139 MEQ/L (136-145)
[2017-04-22 11:37] LABS: ALKALINE PHOSPHATASE 169 U/L (45-117); TOTAL BILIRUBIN ADULT 0.4 MG/DL (0.2-1.0)
[2017-04-22 11:38] LABS: HEMO FLAGS DIFF FINAL
[2017-04-22 11:42] LABS: HEMATOCRIT 19.3 % (35.0-46.0)
[2017-04-22] MEDS ORDERED: SODIUM CHLOR 0.9% 250 ML INJ 250 ML IV ONE (12:30)
--- NOTE | 2017-04-22 14:07 | PD ---
HPI Chief Complaint: Abnormal Results Time Seen by Provider: 10:54 Travel History International Travel<30 days: No Contact w/Intl Traveler<30days: No Traveled to known affect area: No History of Present Illness HPI Is an 87 year-old woman presents emergent harmful hemoglobin. She is on aspirin and Plavix and Eliquis. She's had anemia in the past. She had an upper GI bleed she had routine lab work that showed low hemoglobin. She has lightheadedness and dizziness when she stands. History Past Medical History Narrative Medical poor balance CAD Hypothyroid AFIB AL with 4 heart stents,last stent placed in 2016 pacemaker HTN anemia CKD multiple TIAs. Past Surgical History Pacemaker Left hip replacement Cardiac Stents x 4 Menopausal: Yes Social History Alcohol Use: Yes (occ) Tobacco Use: No Allergies-Medications (Allergen,Severity, Reaction): Coded Allergies: No Known Allergies (Verified , 03/02/17) Reported Meds & Prescriptions Reported Meds & Active Scripts Active Pantoprazole (Pantoprazole Sodium) 40 Mg Tab 40 Mg PO DAILY Eliquis (Apixaban) 2.5 Mg Tab 2.5 Mg PO BID Plavix (Clopidogrel Bisulfate) 75 Mg Tab 75 Mg PO DAILY Metoprolol Succinate ER 24 HR (Metoprolol Succinate) 25 Mg Tab 25 Mg PO DAILY Reported Iron (Ferrous Sulfate) 325 Mg Cap 325 Mg PO DAILY Levothyroxine (Levothyroxine Sodium) 125 Mcg Tab 125 Mcg PO DAILY Probiotic (Lactobacillus Acidophilus) 1 Cap Cap 1 Cap PO DAILY Crestor (Rosuvastatin Calcium) 20 Mg Tab 20 Mg PO DAILY Restasis Opth 0.05% (Cyclosporine Opth 0.05%) 0.05% Emul 1 Drop EACH EYE BID Effexor (Venlafaxine HCl) 75 Mg Tab 75 Mg PO DAILY Review of Systems Except as stated in HPI: all other systems reviewed are Neg Physical Exam Narrative GENERAL: Well-appearing 87 year-old woman, no acute distress. SKIN: Focused skin assessment warm/dry. HEAD: Atraumatic. Normocephalic. EYES: Pupils equal and round. No scleral icterus. No injection or drainage. ENT: No nasal bleeding or discharge. Mucous membranes pink and moist. NECK: Trachea midline. No JVD. CARDIOVASCULAR: Regular rate and rhythm. No murmur appreciated. RESPIRATORY: No accessory muscle use. Clear to auscultation. Breath sounds equal bilaterally. GASTROINTESTINAL: Abdomen soft, non-tender, nondistended. Hepatic and splenic margins not palpable. RECTAL: Dark black stool in the rectal vault. Guaiac positive. MUSCULOSKELETAL: No obvious deformities. No clubbing. No cyanosis. No edema. NEUROLOGICAL: Awake and alert. No obvious cranial nerve deficits. Motor grossly within normal limits. Normal speech. PSYCHIATRIC: Appropriate mood and affect; insight and judgment normal. Data Data Last Documented VS Vital Signs Date Time Temp Pulse Resp B/P (MAP) Pulse Ox O2 Delivery O2 Flow Rate FiO2 04/22/17 10:39 98.0 70 20 146/68 (94) 100 Room Air Orders Orders Complete Blood Count With Diff (04/22/17 10:56) Comprehensive Metabolic Panel (04/22/17 10:56) Act Partial Throm Time (Ptt) (04/22/17 10:56) Prothrombin Time / Inr (Pt) (04/22/17 10:56) Type And Screen (04/22/17 12:21) Red Blood Cells (Rbc) (04/22/17 12:21) Blood Product Administration (04/22/17 12:21) Sodium Chlor 0.9% 250 Ml Inj (Ns 250 Ml (04/22/17 12:30) Admit Order (Ed Use Only) (04/22/17 ) Labs Laboratory Tests Test 04/22/17 11:00 White Blood Count 9.5 TH/MM3 Red Blood Count 1.86 MIL/MM3 Hemoglobin 6.2 GM/DL Hematocrit 19.3 % Mean Corpuscular Volume 104.0 FL Mean Corpuscular Hemoglobin 33.5 PG Mean Corpuscular Hemoglobin Concent 32.2 % Red Cell Distribution Width 17.1 % Platelet Count 373 TH/MM3 Mean Platelet Volume 8.0 FL Neutrophils (%) (Auto) 82.9 % Lymphocytes (%) (Auto) 9.3 % Monocytes (%) (Auto) 5.2 % Eosinophils (%) (Auto) 2.0 % Basophils (%) (Auto) 0.6 % Neutrophils # (Auto) 7.9 TH/MM3 Lymphocytes # (Auto) 0.9 TH/MM3 Monocytes # (Auto) 0.5 TH/MM3 Eosinophils # (Auto) 0.2 TH/MM3 Basophils # (Auto) 0.1 TH/MM3 CBC Comment DIFF FINAL Differential Comment Prothrombin Time 12.0 SEC Prothromb Time International Ratio 1.1 RATIO Activated Partial Thromboplast Time 25.0 SEC Blood Urea Nitrogen 38 MG/DL Creatinine 1.75 MG/DL Random Glucose 115 MG/DL Total Protein 7.1 GM/DL Albumin 3.7 GM/DL Calcium Level 7.9 MG/DL Alkaline Phosphatase 169 U/L Aspartate Amino Transf (AST/SGOT) 26 U/L Alanine Aminotransferase (ALT/SGPT) 52 U/L Total Bilirubin 0.4 MG/DL Sodium Level 139 MEQ/L Potassium Level 4.5 MEQ/L Chloride Level 108 MEQ/L Carbon Dioxide Level 22.2 MEQ/L Anion Gap 9 MEQ/L Estimat Glomerular Filtration Rate 27 ML/MIN MDM Medical Decision Making Medical Screen Exam Complete: Yes Emergency Medical Condition: Yes Interpretation(s) Laboratory Tests Test 04/22/17 11:00 White Blood Count 9.5 TH/MM3 Red Blood Count 1.86 MIL/MM3 Hemoglobin 6.2 GM/DL Hematocrit 19.3 % Mean Corpuscular Volume 104.0 FL Mean Corpuscular Hemoglobin 33.5 PG Mean Corpuscular Hemoglobin Concent 32.2 % Red Cell Distribution Width 17.1 % Platelet Count 373 TH/MM3 Mean Platelet Volume 8.0 FL Neutrophils (%) (Auto) 82.9 % Lymphocytes (%) (Auto) 9.3 % Monocytes (%) (Auto) 5.2 % Eosinophils (%) (Auto) 2.0 % Basophils (%) (Auto) 0.6 % Neutrophils # (Auto) 7.9 TH/MM3 Lymphocytes # (Auto) 0.9 TH/MM3 Monocytes # (Auto) 0.5 TH/MM3 Eosinophils # (Auto) 0.2 TH/MM3 Basophils # (Auto) 0.1 TH/MM3 CBC Comment DIFF FINAL Differential Comment Prothrombin Time 12.0 SEC Prothromb Time International Ratio 1.1 RATIO Activated Partial Thromboplast Time 25.0 SEC Blood Urea Nitrogen 38 MG/DL Creatinine 1.75 MG/DL Random Glucose 115 MG/DL Total Protein 7.1 GM/DL Albumin 3.7 GM/DL Calcium Level 7.9 MG/DL Alkaline Phosphatase 169 U/L Aspartate Amino Transf (AST/SGOT) 26 U/L Alanine Aminotransferase (ALT/SGPT) 52 U/L Total Bilirubin 0.4 MG/DL Sodium Level 139 MEQ/L Potassium Level 4.5 MEQ/L Chloride Level 108 MEQ/L Carbon Dioxide Level 22.2 MEQ/L Anion Gap 9 MEQ/L Estimat Glomerular Filtration Rate 27 ML/MIN Differential Diagnosis Anemia, bleed, GI bleed, bone marrow failure, other Narrative Course Medical decision making 79 year-old woman with anemia, guaiac positive stools, likely slow GI bleed related to anticoagulation. Plan admission and transfusion. Diagnosis Primary Impression: Anemia Anival Flores MD Apr 22, 2017 14:07
--- NOTE | 2017-04-22 14:09 | HHI.HP ---
[facility] Service [facility] Primary Care Physician Candelaria Almendarez MD Admission Diagnosis anemia Diagnoses: (1) Anemia Diagnosis: Principal Chief Complaint: anemia Travel History International Travel<30 Days: No Contact w/Intl Traveler <30 Da: No Traveled to Known Affected Are: No History of Present Illness patient is a 87 y/o female with history of CAD- s/p stent placement, atrial fibrillation, on plavix and eliquis, CKD, chronic anemia , was sent to ER by her PCP because of anemia. she says that she has chronic anemia and she's being followed up by . she was recently admitted to this hospital after she fell. she had GI evaluation during that admission including EGD during which she was found to have esophagitis,duodenitis and antral superficial ulcer. she says that she's been getting tired easily recently with on and off lightheadedness. she denies any chest pain, sob,abdominal pain. she denies any rectal bleed. she has some dark stool which she relates to taking iron supplement. Review of Systems Constitutional: COMPLAINS OF: Fatigue, Dizziness, DENIES: Fever, Weight loss, Chills, Night Sweats Eyes: DENIES: Blurred vision, Diplopia, Vision loss, Double Vision Ears, nose, mouth, throat: DENIES: Tinnitus, Vertigo, Throat pain, Epistaxis Respiratory: DENIES: Apneas, Cough, Snoring, Wheezing, Hemoptysis, Sputum production, Shortness of breath Cardiovascular: DENIES: Chest pain, Palpitations, Syncope, Dyspnea on Exertion , PND, Lower Extremity Edema, Orthopnea, Claudication Gastrointestinal: DENIES: Abdominal pain, Black stools, Bloody stools, Constipation, Diarrhea, Nausea, Vomiting, Difficulty Swallowing, Anorexia Genitourinary: DENIES: Urinary frequency, Urgency, Hematuria, Dysuria Musculoskeletal: DENIES: Joint pain, Muscle aches, Stiffness, Joint Swelling Integumentary: DENIES: Rash Neurologic: DENIES: Abnormal gait, Headache, Localized weakness, Paresthesias, Seizures, Speech Problems, Tremor, Poor Balance Psychiatric: DENIES: Anxiety, Confusion, Mood changes, Depression, Hallucinations, Agitation, Suicidal Ideation, Homicidal Ideation, Delusions Past Family Social History Past Medical History CAD atrial fibrillation PUD CKD anemia hypothyroidism Past Surgical History hip replacement stent and pacemaker placement Reported Medications plavix eliquis rosuvastatin metoprolol levothyroxine protonix Allergies: Coded Allergies: No Known Allergies (Verified , 03/02/17) Active Ordered Medications Current Medications Sodium Chloride 250 ml @ 15 mls/hr ONCE ONCE IV ; Start 04/22/17 at 12:30; Stop 04/23/17 at 05:09 Levothyroxine Sodium (Synthroid) 125 mcg DAILY@0600 PO ; Start 04/23/17 at 06:00 Pantoprazole Sodium (Protonix) 40 mg DAILY PO ; Start 04/23/17 at 09:00 Patient Own Medication PT OWN MED: RESTASIS (CYCLOSPORI... BID EACH EYE ; Start 04/22/17 at 21:00; Status Future Hold Atorvastatin Calcium (Lipitor) 40 mg DAILY PO ; Start 04/23/17 at 09:00 Venlafaxine HCl (Effexor Xr) 75 mg DAILY PO ; Start 04/23/17 at 09:00 Family History heart disease in father and mother. Social History doesn't smoke.drinks occasionally. Physical Exam Vital Signs Vital Signs Date Time Temp Pulse Resp B/P (MAP) Pulse Ox O2 Delivery O2 Flow Rate FiO2 04/22/17 13:26 97.4 61 17 154/70 (98) 100 04/22/17 12:55 78 18 138/74 (95) 98 04/22/17 10:39 98.0 70 20 146/68 (94) 100 Room Air Physical Exam GENERAL: pale looking, in no apparent distress. SKIN: No rashes, ecchymoses or lesions. Cool and dry. HEAD: Atraumatic. Normocephalic. No temporal or scalp tenderness. EYES: Pupils equal round and reactive. Extraocular motions intact. No scleral icterus. No injection or drainage. ENT: Nose without bleeding, purulent drainage or septal hematoma. Throat without erythema, tonsillar hypertrophy or exudate. Uvula midline. Airway patent. NECK: Trachea midline. No JVD or lymphadenopathy. Supple, nontender, no meningeal signs. CARDIOVASCULAR: Regular rate and rhythm without murmurs, gallops, or rubs. RESPIRATORY: Clear to auscultation. Breath sounds equal bilaterally. No wheezes , rales, or rhonchi. GASTROINTESTINAL: Abdomen soft, non-tender, nondistended. No hepato-splenomegaly , or palpable masses. No guarding. MUSCULOSKELETAL: Extremities with mild bilateral pedal edema. NEUROLOGICAL: Awake and alert. Cranial nerves II through XII intact. Motor and sensory grossly within normal limits. Five out of 5 muscle strength in all muscle groups. Normal speech. Laboratory Laboratory Tests Test 04/22/17 11:00 White Blood Count 9.5 Red Blood Count 1.86 Hemoglobin 6.2 Hematocrit 19.3 Mean Corpuscular Volume 104.0 Mean Corpuscular Hemoglobin 33.5 Mean Corpuscular Hemoglobin Concent 32.2 Red Cell Distribution Width 17.1 Platelet Count 373 Mean Platelet Volume 8.0 Neutrophils (%) (Auto) 82.9 Lymphocytes (%) (Auto) 9.3 Monocytes (%) (Auto) 5.2 Eosinophils (%) (Auto) 2.0 Basophils (%) (Auto) 0.6 Neutrophils # (Auto) 7.9 Lymphocytes # (Auto) 0.9 Monocytes # (Auto) 0.5 Eosinophils # (Auto) 0.2 Basophils # (Auto) 0.1 CBC Comment DIFF FINAL Differential Comment Prothrombin Time 12.0 Prothromb Time International Ratio 1.1 Activated Partial Thromboplast Time 25.0 Blood Urea Nitrogen 38 Creatinine 1.75 Random Glucose 115 Total Protein 7.1 Albumin 3.7 Calcium Level 7.9 Alkaline Phosphatase 169 Aspartate Amino Transf (AST/SGOT) 26 Alanine Aminotransferase (ALT/SGPT) 52 Total Bilirubin 0.4 Sodium Level 139 Potassium Level 4.5 Chloride Level 108 Carbon Dioxide Level 22.2 Anion Gap 9 Estimat Glomerular Filtration Rate 27 Result Diagram: 04/22/17 1100 04/22/17 1100 Caprini VTE Risk Assessment Caprini VTE Risk Assessment: Mod/High Risk (score >= 2) VTE Pharm Contraindication: Hemorrhage Caprini Risk Assessment Model Point Value = 1 Point Value = 2 Point Value = 3 Point Value = 5 Age 41-60 Minor surgery BMI > 25 kg/m2 Swollen legs Varicose veins or History of unexplained or recurrent spontaneous Oral contraceptives or hormone replacement Sepsis (< 1 month) Serious lung disease, including pneumonia (< 1 month) Abnormal pulmonary function Acute myocardial infarction Congestive heart failure (< 1 month) History of inflammatory bowel disease Medical patient at bed rest Age 61-74 Arthroscopic surgery Major open surgery (> 45 min) Laparoscopic surgery (> 45 min) Malignancy Confined to bed (> 72 hours) Immobilizing plaster cast Central venous access Age >= 75 History of VTE Family history of VTE Factor V Leiden Prothrombin [id number] Lupus anticoagulant Anticardiolipin antibodies Elevated serum homocysteine Heparin-induced thrombocytopenia Other congenital or acquired thrombophilia Stroke (< 1 month) Elective arthroplasty Hip, pelvis, or leg fracture Acute spinal cord injury (< 1 month) Prophylaxis Regimen Total Risk Factor Score Risk Level Prophylaxis Regimen 0-1 Low Early ambulation 2 Moderate Order ONE of the following: *Sequential Compression Device (SCD) *Heparin 5000 units SQ BID 3-4 Higher Order ONE of the following medications: *Heparin 5000 units SQ TID *Enoxaparin/Lovenox 40 mg SQ daily (WT < 150 kg, CrCl > 30 mL/min) *Enoxaparin/Lovenox 30 mg SQ daily (WT < 150 kg, CrCl > 10-29 mL/min) *Enoxaparin/Lovenox 30 mg SQ BID (WT < 150 kg, CrCl > 30 mL/min) AND/OR *Sequential Compression Device (SCD) 5 or more Highest Order ONE of the following medications: *Heparin 5000 units SQ TID (Preferred with Epidurals) *Enoxaparin/Lovenox 40 mg SQ daily (WT < 150 kg, CrCl > 30 mL/min) *Enoxaparin/Lovenox 30 mg SQ daily (WT < 150 kg, CrCl > 10-29 mL/min) *Enoxaparin/Lovenox 30 mg SQ BID (WT < 150 kg, CrCl > 30 mL/min) AND *Sequential Compression Device (SCD) Assessment and Plan Assessment and Plan A/P - anemia- acute on chronic- possibly due to GI blood loss-patient on eliquis and plavix- with recent EGD which showed antral superficial ulcer will transfuse with two units of PRBC- monitor H/H closely- resume PPI- will consult GI and Hematology. -CAD- s/p stent placement; resume BB- hold plavix and eliquis as noted above -atrial fibrillation- s/p pacemaker placement; resume BB- anticoagulation on hold -chronic renal insufficiency- will monitor -dyslipidemia/hypothyroidism; resume home meds -DVT prophylaxis with SCD's; no chemical anticoagulation for now till work-up completed. Discussed Condition With the patient and ER physician. Physician Certification 2 Midnight Certification Type: Admission for Inpatient Services Order for Inpatient Services The services are ordered in accordance with Medicare regulations or non- Medicare payer requirements, as applicable. In the case of services not specified as inpatient-only, they are appropriately provided as inpatient services in accordance with the 2-midnight benchmark. Estimated LOS (days): 2 days is the estimated time the patient will need to remain in the hospital, assuming treatment plan goals are met and no additional complications. Post-Hospital Plan: Home Problem Qualifiers (1) Anemia: Qualified Codes: D64.9 - Anemia, unspecified Dmitry Shaffer MD Apr 22, 2017 14:09
[2017-04-22] MEDS ORDERED: FUROSEMIDE 20 MG/2 ML VIAL IV PUSH ONE (15:00)
--- NOTE | 2017-04-22 16:39 | PD.CONS ---
HPI History of Present Illness This is a 87 year old female with hx CAD s/p stending, AF on plavix and eliquis , CKD, chronic anemia, PUD, who was referred by her PCP for low hgb. Hgb was 6.2 on admission. She has been feeling lightheaded but cannot tell me for how long. No obvious bleeding. She does have dark but formed stool, she says she always has this and takes an iron supplement. She sees Dr Parker for anemia. Denies diarrhea, rectal bleeding, weight loss, n/v, abd pain. Was seen here after a fall and had EGD for anemia 03/06/17 that found esophagitis, duodenitis, antral superficial ulcer path benign. She had colonoscopy 5-10y ago but can recall no further details. Has pacemaker, stent. Takes eliquis and plavix for the last year. (Opal Ho) PFSH Past Medical History CAD atrial fibrillation PUD CKD anemia hypothyroidism Past Surgical History hip replacement stent and pacemaker placement (Opal Ho) Coded Allergies: No Known Allergies (Verified , 03/02/17) Family History heart disease in father and mother. Social History doesn't smoke.drinks occasionally. (pOal Ho) Review of Systems Constitutional: COMPLAINS OF: Dizziness, DENIES: Fever, Weight loss Eyes: DENIES: Blurred vision Ears, nose, mouth, throat: DENIES: Hearing loss Respiratory: DENIES: Hemoptysis Cardiovascular: DENIES: Chest pain Gastrointestinal: COMPLAINS OF: Black stools, DENIES: Abdominal pain, Bloody stools, Diarrhea, Nausea, Vomiting, Hematemesis Genitourinary: DENIES: Hematuria Musculoskeletal: DENIES: Joint Swelling Integumentary: DENIES: Jaundice Neurologic: DENIES: Headache Psychiatric: DENIES: Confusion (Opal Ho) GI Exam Vitals I&O Vital Signs Date Time Temp Pulse Resp B/P (MAP) Pulse Ox O2 Delivery O2 Flow Rate FiO2 04/22/17 14:12 97.7 60 15 158/69 99 04/22/17 13:26 97.4 61 17 154/70 (98) 100 04/22/17 12:55 78 18 138/74 (95) 98 04/22/17 10:39 98.0 70 20 146/68 (94) 100 Room Air I/O 04/21/17 04/21/17 04/21/17 04/22/17 04/22/17 04/22/17 07:00 15:00 23:00 07:00 15:00 23:00 Intake Total 10 ml Balance 10 ml Intake Blood Product IV Normal Saline Flush 10 ml Laboratory Test 04/22/17 11:00 White Blood Count 9.5 TH/MM3 Red Blood Count 1.86 MIL/MM3 Hemoglobin 6.2 GM/DL Hematocrit 19.3 % Mean Corpuscular Volume 104.0 FL Mean Corpuscular Hemoglobin 33.5 PG Mean Corpuscular Hemoglobin Concent 32.2 % Red Cell Distribution Width 17.1 % Platelet Count 373 TH/MM3 Mean Platelet Volume 8.0 FL Neutrophils (%) (Auto) 82.9 % Lymphocytes (%) (Auto) 9.3 % Monocytes (%) (Auto) 5.2 % Eosinophils (%) (Auto) 2.0 % Basophils (%) (Auto) 0.6 % Neutrophils # (Auto) 7.9 TH/MM3 Lymphocytes # (Auto) 0.9 TH/MM3 Monocytes # (Auto) 0.5 TH/MM3 Eosinophils # (Auto) 0.2 TH/MM3 Basophils # (Auto) 0.1 TH/MM3 CBC Comment DIFF FINAL Differential Comment Prothrombin Time 12.0 SEC Prothromb Time International Ratio 1.1 RATIO Activated Partial Thromboplast Time 25.0 SEC Blood Urea Nitrogen 38 MG/DL Creatinine 1.75 MG/DL Random Glucose 115 MG/DL Total Protein 7.1 GM/DL Albumin 3.7 GM/DL Calcium Level 7.9 MG/DL Alkaline Phosphatase 169 U/L Aspartate Amino Transf (AST/SGOT) 26 U/L Alanine Aminotransferase (ALT/SGPT) 52 U/L Total Bilirubin 0.4 MG/DL Sodium Level 139 MEQ/L Potassium Level 4.5 MEQ/L Chloride Level 108 MEQ/L Carbon Dioxide Level 22.2 MEQ/L Anion Gap 9 MEQ/L Estimat Glomerular Filtration Rate 27 ML/MIN Physical Examination HEENT: PERRL; normocephalic; atraumatic; no jaundice. CHEST: CTA CARDIAC: RRR ABDOMEN: Soft, nondistended, nontender; no hepatosplenomegaly; bowel sounds are present in all four quadrants. EXTREMITIES: No clubbing, cyanosis, or edema. SKIN: Normal; no rash; no jaundice. NAVIGATION OFFICER: No focal deficits; alert and oriented times three. (Opal Ho) Assessment and Plan Plan ASSESSMENT - anemia - macrocytic 6.2 on admission. hx chronic anemia. 9.5 on 03/05/17. No obvious bleeding. Admits black stools. takes iron. EGD 03/06/17 found esophagitis duodenitis, superficial antral ulcer path benign. on eliquis, plavix for past year. She is hesitant to pursue colonoscopy or any endoscopic procedures. receiving blood. sees Dr Parker, hematology consult pending PLAN - consider colonoscopy +/- EGD when plavix held 5 days and eliquis held 2 days - consider capsule endoscopy as outpatient - monitor HH - transfuse PRN - RACHEL - await hematology consult - further recs to follow This pt seen by myself and Dr Martines and this note is written on his behalf (Opal Ho) Physician Comments Patient seen and examined Agree with above Continue with current supportive care Monitor labs Transfuse as needed Plan for an EGD colonoscopy on Thursday we will proceed with colon prep tomorrow (Paramjit Martines MD) Opal Ho Apr 22, 2017 16:39 Paramjit Martines MD Apr 22, 2017 22:07
--- NOTE | 2017-04-22 19:03 | MB ---
cc: OPHELIA MENJIVAR MD DATE OF CONSULTATION 04/22/2017 DATE OF 1930 REASON FOR HEMATOLOGY CONSULTATION Anemia. HISTORY OF THE PRESENT ILLNESS Ms. Fu is an 87-year-old lady with a history of coronary artery disease status post AR and stent placement, atrial fibrillation on Eliquis, chronic kidney disease, iron-deficiency anemia, hypertension, hyperlipidemia, history of TIA and chronic renal disease. She presented to [facility] for admission after routine laboratory work performed by primary care physician revealed a hemoglobin of 5.9. She reports that approximately one month ago she fell and landed on her left side and sustained several bony fractures. She was at rehab and was recently discharged from her rehabilitation facility back to home. Her and her noted a significant decrease in her strength, increase in fatigue during the course of her time at rehab. She reports that she had black stools, however, she is on chronic oral iron therapy. She also denies any vomiting, any blood in vomit, blood on top of her stool. She has her uterus in place. However, denies any vaginal bleeding and she denies any blood in her urine or discoloration of her urine. She follows with Dr. Parker as an outpatient for management of iron deficiency anemia. She reports that she has been on chronic oral iron therapy which she takes daily and she also received in approximately December of this year one dose of IV iron therapy. Her reports that she has received blood on two separate occasions this year. One was approximately August and the other time was in December. Last colonoscopy was several years ago. EGD within the past year with gastritis , non bleeding ulcer. PAST SURGICAL HISTORY Partial hip replacement 9 years ago. SOCIAL HISTORY The patient lives in [place] with her . She has a good support system. She denies tobacco or illegal drug use but she reports that she drinks one to two glasses of wine every night. 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 FAMILY HISTORY Mother made too much blood and had to have phlebotomies. Significant family history of heart disease. ALLERGIES She has no known allergies. MEDICATIONS Current medications include: 1. Venlafaxine. 2. Protonix. 3. Metoprolol. 4. Levothyroxine. 5. Atorvastatin. REVIEW OF SYSTEMS CONSTITUTIONAL: Fatigue. Malaise. GASTROINTESTINAL: Dark stools. MUSCULOSKELETAL: Walks with walker due to recent stint in rehab and fracture. HEMATOLOGIC: History of anemia. All other review of systems negative. PHYSICAL EXAMINATION GENERAL: A well-developed, well-nourished elderly lady in no acute distress sitting at the side of her bed with at bedside. HEENT: Eyes, pupils equal, round and reactive. Extraocular muscles intact. Ear, nose, and throat, oropharynx clear. Mucous membranes moist. Poor dentition. CARDIOVASCULAR: Regular rate and rhythm. Pacemaker in place in the left chest wall. RESPIRATORY: Clear to auscultation bilaterally. GASTROINTESTINAL: Soft, nontender, nondistended with no palpable organomegaly. MUSCULOSKELETAL: Full range of motion. SKIN: No bruising. Chronic skin thickening of lower extremities. NEUROLOGIC: Alert and oriented, answers questions appropriately. No focal deficit. PSYCHIATRIC: Appropriate mood and affect. ASSESSMENT AND PLAN 1. Acute on chronic iron deficiency anemia: hemoglobin of 6.2 on admission and hematocrit of 19.3. MCV is 104 and the total white blood cell count is 9.5. Differential reveals elevated ANC at 7.9 and slightly low absolute lymphocyte count at 0.9. Over the past year during her hospitalizations her hemoglobin has been variable with a baseline approximately 10 with her lowest other value at 7.4 when she was hospitalized in December of 2016. During the hospitalization for syncope she was found to have a positive heme-occult and was transfused 2 units of packed red blood cells. Her anemia during this hospitalization is likely secondary to chronic GI bleeding, exacerbated by apixaban and antiplatelet therapy. Gastroenterology team has evaluated the patient. Previous folate level, vitamin B12 level were within normal limits. Iron studies from March 2017 reveal an iron of 26, total iron-binding capacity of 273, percent sat of 9.5 and ferritin of 196. This presents a mixed picture of anemia of chronic disease, iron deficiency anemia. Chronic renal disease also contributing to baseline anemia. -Will examine peripheral blood smear. -Will add haptoglobin and LDH and reticulocyte count on tube labs from prior -Await GI recommendations 2. Heart disease: CAD s/p stenting and atrial fibrillation on apixaban. She will need to discuss risks/benefits of continuing anticoagulation with cardiology. Thank you for this consultation, will continue to follow while inpatient. MD REGINO Howell /5:51 PM /6:27 PM JEFFREY
[2017-04-22] MEDS ORDERED: PTOWN: RESTASIS (CYCLOSPORINE) 0.05% 1 DROP EACH EYE BID EACH EYE SCH (21:00)
[2017-04-22 21:21] LABS: RETIC % 6.9 % (0.4-3.0)
[2017-04-22 21:48] LABS: REVIEW FLAG FINAL
[2017-04-23] VITALS: BP 171/80; PULSE 62; RESP 18; TEMP 97.8; O2SAT 98
[2017-04-23 00:45] LABS: HEMATOCRIT 26.3 % (35.0-46.0)
[2017-04-23 04:00] VITALS: BP 157/94; PULSE 61; RESP 17; TEMP 97.7; O2SAT 98
[2017-04-23] MEDS: LEVOTHYROXINE SODIUM 125 MCG TAB PO SCH (06:02)
[2017-04-23 08:00] VITALS: BP 158/77; PULSE 61; RESP 20; TEMP 97.6; O2SAT 98
[2017-04-23] MEDS: VENLAFAXINE HCL XR 75 MG CAP PO SCH (08:34)
[2017-04-23] MEDS: ATORVASTATIN 40 MG TAB PO SCH (08:34)
[2017-04-23] MEDS: PANTOPRAZOLE SOD 40 MG DELAYED RELEASE TAB PO SCH (08:34)
[2017-04-23] MEDS: METOPROLOL SUCCINATE 25 MG EXTENDED RELEASE TAB PO SCH (08:34)
[2017-04-23 08:44] LABS: AUTOMATED NEUTROPHIL # 6.2 TH/MM3 (1.8-7.7); BASOPHIL % 0.5 % (0.0-2.0); EOSINOPHIL # 0.3 TH/MM3 (0-0.4); EOSINOPHIL % 3.4 % (0.0-4.0); HEMATOCRIT 26.2 % (35.0-46.0); HEMO FLAGS DIFF FINAL; LYMPH % 13.6 % (9.0-44.0); LYMPHOCYTE # 1.1 TH/MM3 (1.0-4.8); MEAN CELL VOLUME 94.4 FL (80.0-100.0); MEAN CORPUSCULAR HEMOGLOBIN 31.5 PG (27.0-34.0); MEAN CORPUSCULAR HGB CONC 33.3 % (32.0-36.0); MONO % 7.5 % (0.0-8.0); PLATELET COUNT 308 TH/MM3 (150-450); RED BLOOD COUNT 2.77 MIL/MM3 (4.00-5.30); RED CELL DISTRIBUTION WIDTH 22.6 % (11.6-17.2); WHITE BLOOD COUNT 8.3 TH/MM3 (4.0-11.0)
[2017-04-23 09:04] LABS: BICARBONATE 21.8 MEQ/L (21.0-32.0); POTASSIUM 4.1 MEQ/L (3.5-5.1)
--- NOTE | 2017-04-23 11:06 | HHI.PR ---
Subjective Remarks resting comfortably with no distress. no new complaints. H/H trend noted. at the bedside. Objective Vitals Vital Signs Date Time Temp Pulse Resp B/P (MAP) Pulse Ox O2 Delivery O2 Flow Rate FiO2 04/23/17 08:00 97.6 61 20 158/77 (104) 98 04/23/17 04:00 97.7 61 17 157/94 (115) 98 04/23/17 00:00 97.8 62 18 171/80 (110) 98 04/22/17 19:45 98.0 61 18 165/73 (103) 100 04/22/17 17:55 97.7 61 18 166/72 (103) 100 04/22/17 17:17 97.8 63 18 147/70 (95) 100 04/22/17 17:17 97.7 66 18 147/70 100 04/22/17 16:00 98.0 60 17 165/73 (103) 100 04/22/17 15:26 97.4 61 18 154/70 (98) 100 04/22/17 14:12 97.7 60 15 158/69 99 04/22/17 13:26 97.4 61 17 154/70 (98) 100 04/22/17 12:55 78 18 138/74 (95) 98 04/22/17 10:39 98.0 70 20 146/68 (94) 100 Room Air I/O 04/22/17 04/22/17 04/22/17 04/23/17 04/23/17 04/23/17 07:00 15:00 23:00 07:00 15:00 23:00 Intake Total 10 ml 825 ml 0 ml Output Total 400 ml Balance 10 ml 825 ml -400 ml Intake Oral 0 ml Packed Cells 800 ml Blood Product IV Normal Saline Flush 10 ml 25 ml Output Urine Total 400 ml # Bowel Movements 0 Result Diagram: 04/23/1761704/23/17617 Objective Remarks GENERAL: This is a well-nourished, well-developed patient, in no apparent distress. CARDIOVASCULAR: Regular rate and regular rhythm without murmurs, gallops, or rubs. RESPIRATORY: Clear to auscultation. Breath sounds equal bilaterally. No wheezes , rales, or rhonchi. GASTROINTESTINAL: Abdomen soft, non-tender, nondistended. Normal, active bowel sounds MUSCULOSKELETAL: Extremities without clubbing, cyanosis, or edema. NEURO: Alert & Oriented x4 to person, place, time, situation. Moves all ext x4 Medications and IVs Current Medications Sodium Chloride 250 ml @ 15 mls/hr ONCE ONCE IV Last administered on 14:20; Start 04/22/17 at 12:30; Stop 04/23/17 at 05:09; Status DC Levothyroxine Sodium (Synthroid) 125 mcg DAILY@0600 PO Last administered on 06:02; Start 04/23/17 at 06:00 Pantoprazole Sodium (Protonix) 40 mg DAILY PO Last administered on 04/23/17 08 :34; Start 04/23/17 at 09:00 Patient Own Medication PT OWN MED: RESTASIS (CYCLOSPORI... BID EACH EYE ; Start 04/22/17 at 21:00; Status Future Hold Atorvastatin Calcium (Lipitor) 40 mg DAILY PO Last administered on 04/23/17 08 :34; Start 04/23/17 at 09:00 Venlafaxine HCl (Effexor Xr) 75 mg DAILY PO Last administered on 04/23/17 08: 34; Start 04/23/17 at 09:00 Metoprolol Succinate (Toprol Xl) 25 mg DAILY PO Last administered on 04/23/17 08:34; Start 04/23/17 at 09:00 Furosemide (Lasix Inj) 20 mg ONCE ONCE IV PUSH Last administered on 04/22/17 16:23; Start 04/22/17 at 15:00; Stop 04/22/17 at 15:01; Status DC A/P Assessment and Plan A/P - anemia- acute on chronic- possibly due to GI blood loss-patient on eliquis and plavix- with recent EGD which showed antral superficial ulcer transfused with two units of PRBC with improved H/H- continue PPI- GI and hematology consult appreciated; endoscopy was offered by GI but the patient declined; after our discussion today she agreed to proceed; will reconsult GI. plan was d/w as well. -CAD- s/p stent placement; resume BB- hold plavix and eliquis as noted above -atrial fibrillation- s/p pacemaker placement; resume BB- anticoagulation on hold will consult cardiology ( ) to assist with anticoagulation/ antiplatelet therapy. -chronic renal insufficiency- will monitor -dyslipidemia/hypothyroidism; resume home meds -DVT prophylaxis with SCD's; no chemical anticoagulation for now till work-up completed. Discharge Planning when cleared by GI and hematology- awaiting GI work-up. Dmitry Shaffer MD Apr 23, 2017 10:18
[2017-04-23 12:00] VITALS: BP 165/78; PULSE 60; RESP 20; TEMP 98.2; O2SAT 97
[2017-04-23 16:00] VITALS: BP 180/75; PULSE 60; RESP 20; TEMP 98.2; O2SAT 98
--- NOTE | 2017-04-23 16:55 | HHI.GIFU ---
Subjective Remarks Pt resting in bed. GI reconsulted b/c pt now agrees to pursue endoscopy. (Opal Ho) Objective Vitals I&O Vital Signs Date Time Temp Pulse Resp B/P (MAP) Pulse Ox O2 Delivery O2 Flow Rate FiO2 04/23/17 16:00 98.2 60 20 180/75 (110) 98 04/23/17 12:00 98.2 60 20 165/78 (107) 97 04/23/17 08:00 97.6 61 20 158/77 (104) 98 04/23/17 04:00 97.7 61 17 157/94 (115) 98 04/23/17 00:00 97.8 62 18 171/80 (110) 98 04/22/17 19:45 98.0 61 18 165/73 (103) 100 04/22/17 17:55 97.7 61 18 166/72 (103) 100 04/22/17 17:17 97.8 63 18 147/70 (95) 100 04/22/17 17:17 97.7 66 18 147/70 100 I/O 04/22/17 04/22/17 04/22/17 04/23/17 04/23/17 04/23/17 07:00 15:00 23:00 07:00 15:00 23:00 Intake Total 10 ml 825 ml 0 ml Output Total 400 ml Balance 10 ml 825 ml -400 ml Intake Oral 0 ml Packed Cells 800 ml Blood Product IV Normal Saline Flush 10 ml 25 ml Output Urine Total 400 ml # Bowel Movements 0 Laboratory Laboratory Tests Test 04/23/17 00:21 04/23/17 06:18 Hemoglobin 8.7 8.7 Hematocrit 26.3 26.2 White Blood Count 8.3 Red Blood Count 2.77 Mean Corpuscular Volume 94.4 Mean Corpuscular Hemoglobin 31.5 Mean Corpuscular Hemoglobin Concent 33.3 Red Cell Distribution Width 22.6 Platelet Count 308 Mean Platelet Volume 8.3 Neutrophils (%) (Auto) 75.0 Lymphocytes (%) (Auto) 13.6 Monocytes (%) (Auto) 7.5 Eosinophils (%) (Auto) 3.4 Basophils (%) (Auto) 0.5 Neutrophils # (Auto) 6.2 Lymphocytes # (Auto) 1.1 Monocytes # (Auto) 0.6 Eosinophils # (Auto) 0.3 Basophils # (Auto) 0.0 CBC Comment DIFF FINAL Differential Comment Blood Urea Nitrogen 35 Creatinine 1.55 Random Glucose 79 Calcium Level 7.6 Sodium Level 138 Potassium Level 4.1 Chloride Level 107 Carbon Dioxide Level 21.8 Anion Gap 9 Estimat Glomerular Filtration Rate 32 Physical Exam HEENT: PERRL; normocephalic; atraumatic; no jaundice. CHEST: CTA CARDIAC: RRR ABDOMEN: Soft, nondistended, nontender; no hepatosplenomegaly; bowel sounds are present in all four quadrants. EXTREMITIES: No clubbing, cyanosis, or edema. SKIN: Normal; no rash; no jaundice. SOA ARCHITECT: No focal deficits; alert and oriented times three. (Opal Ho) Assessment and Plan Plan ASSESSMENT - anemia - macrocytic 6.2 on admission. currently stable after blood transfusion. hx chronic anemia. 9.5 on 03/05/17. No obvious bleeding. Admits black stools. takes iron. EGD 03/06/17 found esophagitis duodenitis, superficial antral ulcer path benign. on eliquis, plavix for past year, last had these yesterday morning. sees Dr Parker, hematology consult pending PLAN - EGD/colonoscopy tomorrow - obtain consent - clears today - NPO after midnight - GoLytely - if neg consider capsule endoscopy as outpatient - monitor HH - transfuse PRN - await hematology consult - further recs to follow This pt seen by myself and Dr Martines and this note is written on his behalf (Opal Ho) Physician Comments Patient seen and examined Agree with above Continue with current supportive care Monitor labs Plan for an EGD and a colonoscopy tomorrow (Paramjit Martines MD) Opal Ho Apr 23, 2017 16:55 Paramjit Martines MD Apr 23, 2017 18:48
[2017-04-23] MEDS ORDERED: PEG (High)/E-LYTE SOLN 4000 ML BTL PO ONE (17:00)
--- NOTE | 2017-04-23 17:11 | PD.CONS ---
HPI Service Cardiology Consult Requested By Tate Sanabria Reason for Consult Management CAD, Afib. Primary Care Physician Candelaria Almendarez MD History of Present Illness patient is a 87 y/o female, patient of Dr Oneal who I am covering for, with history of CAD- s/p stent placement (08/2016), atrial fibrillation with hx of TIA on Eliquis, CKD, chronic anemia (sees Dr. Mistry), was sent to ER by her PCP because of anemia. she says that she has chronic anemia and she's being followed up by . she was recently admitted to this hospital after she fell. she had GI evaluation during that admission 12/2016 including EGD during which she was found to have esophagitis,duodenitis and antral superficial ulcer. she says that she's been getting tired easily recently with on and off lightheadedness. she denies any chest pain, sob,abdominal pain. she denies any rectal bleed. she has some dark stool which she relates to taking iron supplement. Review of Systems Consitutional: COMPLAINS OF: Fatigue Eyes: DENIES: Amaurosis Fugax, Change in vision HEENT: COMPLAINS OF: Lightheadedness Respiratory: DENIES: See HPI, Cough, Snoring, Shortness of breath, Wheezing, Sputum production Cardiovascular: DENIES: See HPI, Chest pain, Palpitations, Syncope, Tachycardia Gastrointestinal: DENIES: Nausea, Vomiting, Change in bowel habits, Reflux, Bloody stools, Melena Genitourinary: DENIES: Urinary incontinence, Difficulty voiding Integumentary: DENIES: Rash Neurologic: DENIES: Tingling or numbness, Memory problems, Poor Balance, Stroke symptoms Musculoskeletal: DENIES: Joint pain, Muscle pain, Limited range of motion, Back pain Psychiatric: DENIES: Anxiety, Depression, Sleep disturbances Hematologic: DENIES: Bruising tendencies, Bleeding tendencies Endocrine: DENIES: Weight gain, Weight loss, Thyroid disease Past Family Social History Allergies: Coded Allergies: No Known Allergies (Verified , 03/02/17) Past Medical History CAD atrial fibrillation PUD CKD anemia hypothyroidism Past Surgical History hip replacement stent and pacemaker placement Reported Medications Reported Meds & Active Scripts Active Pantoprazole (Pantoprazole Sodium) 40 Mg Tab 40 Mg PO DAILY Eliquis (Apixaban) 2.5 Mg Tab 2.5 Mg PO BID Plavix (Clopidogrel Bisulfate) 75 Mg Tab 75 Mg PO DAILY Metoprolol Succinate ER 24 HR (Metoprolol Succinate) 25 Mg Tab 25 Mg PO DAILY Reported Iron (Ferrous Sulfate) 325 Mg Cap 325 Mg PO DAILY Levothyroxine (Levothyroxine Sodium) 125 Mcg Tab 125 Mcg PO DAILY Probiotic (Lactobacillus Acidophilus) 1 Cap Cap 1 Cap PO DAILY Crestor (Rosuvastatin Calcium) 20 Mg Tab 20 Mg PO DAILY Restasis Opth 0.05% (Cyclosporine Opth 0.05%) 0.05% Emul 1 Drop EACH EYE BID Effexor (Venlafaxine HCl) 75 Mg Tab 75 Mg PO DAILY Active Ordered Medications Current Medications Medications (Trade) Dose Ordered Sig/Barbie Route Start Time Stop Time Status Last Admin (Synthroid) 125 mcg DAILY@0600 PO 04/23/17 06:00 04/23/17 06:02 (Protonix) 40 mg DAILY PO 04/23/17 09:00 04/23/17 08:34 Patient Own Medication PT OWN MED: RESTASIS (CYCLOSPORI... BID EACH EYE 04/22/17 21:00 Future Hold (Lipitor) 40 mg DAILY PO 04/23/17 09:00 04/23/17 08:34 (Effexor Xr) 75 mg DAILY PO 04/23/17 09:00 04/23/17 08:34 (Toprol Xl) 25 mg DAILY PO 04/23/17 09:00 04/23/17 08:34 Family History heart disease in father and mother. Social History doesn't smoke.drinks occasionally. Physical Exam Vital Signs Vital Signs Date Time Temp Pulse Resp B/P (MAP) Pulse Ox O2 Delivery O2 Flow Rate FiO2 04/23/17 16:00 98.2 60 20 180/75 (110) 98 04/23/17 12:00 98.2 60 20 165/78 (107) 97 04/23/17 08:00 97.6 61 20 158/77 (104) 98 04/23/17 04:00 97.7 61 17 157/94 (115) 98 04/23/17 00:00 97.8 62 18 171/80 (110) 98 04/22/17 19:45 98.0 61 18 165/73 (103) 100 04/22/17 17:55 97.7 61 18 166/72 (103) 100 04/22/17 17:17 97.8 63 18 147/70 (95) 100 04/22/17 17:17 97.7 66 18 147/70 100 Physical Exam GENERAL: pale looking, in no apparent distress. SKIN: No rashes, ecchymoses or lesions. Cool and dry. HEAD: Atraumatic. Normocephalic. No temporal or scalp tenderness. EYES: Pupils equal round and reactive. Extraocular motions intact. No scleral icterus. No injection or drainage. ENT: Nose without bleeding, purulent drainage or septal hematoma. Throat without erythema, tonsillar hypertrophy or exudate. Uvula midline. Airway patent. NECK: Trachea midline. No JVD or lymphadenopathy. Supple, nontender, no meningeal signs. CARDIOVASCULAR: Regular rate and rhythm without murmurs, gallops, or rubs. RESPIRATORY: Clear to auscultation. Breath sounds equal bilaterally. No wheezes , rales, or rhonchi. GASTROINTESTINAL: Abdomen soft, non-tender, nondistended. No hepato-splenomegaly , or palpable masses. No guarding. MUSCULOSKELETAL: Extremities with mild bilateral pedal edema. NEUROLOGICAL: Awake and alert. Cranial nerves II through XII intact. Motor and sensory grossly within normal limits. Five out of 5 muscle strength in all muscle groups. Normal speech. Laboratory Laboratory Tests Test 04/23/17 00:21 04/23/17 06:18 Hemoglobin 8.7 8.7 Hematocrit 26.3 26.2 White Blood Count 8.3 Red Blood Count 2.77 Mean Corpuscular Volume 94.4 Mean Corpuscular Hemoglobin 31.5 Mean Corpuscular Hemoglobin Concent 33.3 Red Cell Distribution Width 22.6 Platelet Count 308 Mean Platelet Volume 8.3 Neutrophils (%) (Auto) 75.0 Lymphocytes (%) (Auto) 13.6 Monocytes (%) (Auto) 7.5 Eosinophils (%) (Auto) 3.4 Basophils (%) (Auto) 0.5 Neutrophils # (Auto) 6.2 Lymphocytes # (Auto) 1.1 Monocytes # (Auto) 0.6 Eosinophils # (Auto) 0.3 Basophils # (Auto) 0.0 CBC Comment DIFF FINAL Differential Comment Blood Urea Nitrogen 35 Creatinine 1.55 Random Glucose 79 Calcium Level 7.6 Sodium Level 138 Potassium Level 4.1 Chloride Level 107 Carbon Dioxide Level 21.8 Anion Gap 9 Estimat Glomerular Filtration Rate 32 Result Diagram: 04/23/1718 04/23/1718 Assessment and Plan Problem List: (1) Anemia ICD Codes: D64.9 - Anemia, unspecified Status: Acute (2) CAD (coronary artery disease) ICD Codes: I25.10 - Atherosclerotic heart disease of craig coronary artery without angina pectoris Status: Acute (3) Atrial fibrillation ICD Codes: I48.91 - Unspecified atrial fibrillation Status: Acute (4) CKD (chronic kidney disease) ICD Codes: N18.9 - Chronic kidney disease, unspecified Status: Chronic (5) CVA (cerebral infarction) ICD Codes: I63.9 - CVA (cerebral infarction) Status: Acute (6) HTN (hypertension) ICD Codes: I10 - Essential (primary) hypertension Status: Acute Assessment and Plan 87 yo lady, patient of , admitted for severe symptomatic anemia, HB 6.1. 1. severe symptomatic anemia, HB 6.1 on admission, up to 8.7 after 2 U PRBC. recent EGD which showed antral superficial ulcer, GI consulted, possible EGD tomorrow. 2. CAD- s/p stent placement 08/2016. Will have to stop Plavix and Aspirin, May hopefully resume 81 mg Aspirin if possible. Will resume BBK-No chest pain. 3. Hx of atrial fibrillation- s/p pacemaker placement 06/2016. TIA in December 2016. resume BB- anticoagulation on hold 4. chronic renal insufficiency- will monitor 5.dyslipidemia/hypothyroidism; resume home meds Problem Qualifiers (1) Anemia: Qualified Codes: D64.9 - Anemia, unspecified Wing Ninoska Pelletier MD Apr 23, 2017 17:11
[2017-04-23 20:00] VITALS: BP 157/70; PULSE 87; RESP 16; TEMP 97.3; O2SAT 99
[2017-04-24] VITALS: BP 153/67; PULSE 62; RESP 16; TEMP 97.2; O2SAT 100
[2017-04-24 04:00] VITALS: BP 165/69; PULSE 62; RESP 20; TEMP 97.9; O2SAT 98
[2017-04-24] MEDS: LEVOTHYROXINE SODIUM 125 MCG TAB PO SCH (05:43)
[2017-04-24 07:47] LABS: HEMATOCRIT 26.5 % (35.0-46.0)
[2017-04-24 08:00] VITALS: BP 164/70; PULSE 63; RESP 16; TEMP 98.2; O2SAT 98
[2017-04-24] MEDS ORDERED: PROPOFOL 200 MG/20 ML AMP ONE (09:21)
[2017-04-24] MEDS ORDERED: LACTATED RINGER'S 1000 ML INJ 1,000 ML IV ONE (09:59)
[2017-04-24] MEDS ORDERED: DO NOT ADM ANY ANTICOAGULANT DRUGS PRN (10:22)
--- NOTE | 2017-04-24 11:23 | PD.PROCEDR ---
GI Procedure REFERRING PHYSICIAN Shannon LLANOS PERFORMED EGD followed by colonoscopy with cautery INDICATION FOR PROCEDURE Anemia unclear etiology with known history of coronary artery disease requiring anticoagulation PROCEDURE: The procedure, risks and benefits were discussed with Ms. Fu and informed consent was obtained. Anesthesia sedated her with Diprivan. She was placed in the left lateral decubitus position. EGD: The Pentax videoscope was introduced through the oropharynx and advanced to the second portion of the duodenum under direct visualization. Retroflexion was performed in the stomach. FINDINGS: The esophagus this appeared to be unremarkable Stomach there was some mild patchy erythema in the antrum but no ulcerations or erosions and the rest of the stomach was unremarkable this is consistent with mild gastritis The duodenum this was unremarkable and within normal limits Colonoscopy: The Pentax videoscope was introduced through the rectum and advanced to cecum where the ileocecal valve and appendiceal orifice were identified. Retroflexion was performed in the rectum. Colonic prep was very good FINDINGS: Colonic withdrawal time greater than 6 minutes as the scope was slowly withdrawn colonic mucosa was carefully inspected the patient was noted to have an AVM in the proximal descending colon this was cauterized otherwise colonic examination was unremarkable except for severe diverticulosis in the sigmoid region also noted on retroflexion small internal hemorrhoids and on rectal examination mild to moderate external hemorrhoids ESTIMATED BLOOD LOSS: None SPECIMENS REMOVED: None COMPLICATIONS: None IMPRESSION: Mild gastritis Colonic AVM Severe sigmoid diverticulosis Mild to moderate internal and external hemorrhoids PLAN: Okay to resume anticoagulation Continue with current supportive care Monitor labs Patient may be discharged from a GI standpoint if all is stable tomorrow Follow-up with GI post discharge CBC prior office visit If any persistent anemia consider capsule endoscopy Paramjit Martines MD Apr 24, 2017 11:23
[2017-04-24 12:00] VITALS: BP 140/62; PULSE 60; RESP 16; TEMP 97.1; O2SAT 100
--- NOTE | 2017-04-24 13:10 | HHI.PR ---
Subjective Remarks overall doing fine. denies chest pain, sob or dizziness. Objective Vitals Vital Signs Date Time Temp Pulse Resp B/P (MAP) Pulse Ox O2 Delivery O2 Flow Rate FiO2 04/24/17 10:56 60 16 145/70 (95) 100 04/24/17 10:29 97.7 62 16 143/65 (91) 100 04/24/17 08:00 98.2 63 16 164/70 (101) 98 04/24/17 04:00 97.9 62 20 165/69 (101) 98 04/24/17 00:00 97.2 62 16 153/67 (95) 100 04/23/17 20:00 97.3 87 16 157/70 (99) 99 04/23/17 16:00 98.2 60 20 180/75 (110) 98 I/O 04/23/17 04/23/17 04/23/17 04/24/17 04/24/17 04/24/17 07:00 15:00 23:00 07:00 15:00 23:00 Intake Total 0 ml 360 ml 750 ml Output Total 400 ml Balance -400 ml 360 ml 750 ml Intake Oral 0 ml 360 ml IV Total 50 ml Other 700 ml Output Urine Total 400 ml # Voids 3 # Bowel Movements 0 Result Diagram: 04/24/17 0702 04/23/17 0618 Objective Remarks GENERAL: This is a well-nourished, well-developed patient, in no apparent distress. CARDIOVASCULAR: Regular rate and regular rhythm without murmurs, gallops, or rubs. RESPIRATORY: Clear to auscultation. Breath sounds equal bilaterally. No wheezes , rales, or rhonchi. GASTROINTESTINAL: Abdomen soft, non-tender, nondistended. Normal, active bowel sounds MUSCULOSKELETAL: Extremities without clubbing, cyanosis, or edema. NEURO: Alert & Oriented x4 to person, place, time, situation. Moves all ext x4 Procedures EGD/ colonoscopy Medications and IVs Current Medications Sodium Chloride 250 ml @ 15 mls/hr ONCE ONCE IV Last administered on 14:20; Start 04/22/17 at 12:30; Stop 04/23/17 at 05:09; Status DC Levothyroxine Sodium (Synthroid) 125 mcg DAILY@0600 PO Last administered on 05:43; Start 04/23/17 at 06:00 Pantoprazole Sodium (Protonix) 40 mg DAILY PO Last administered on 04/23/17 08 :34; Start 04/23/17 at 09:00 Patient Own Medication PT OWN MED: RESTASIS (CYCLOSPORI... BID EACH EYE ; Start 04/22/17 at 21:00; Status Future Hold Atorvastatin Calcium (Lipitor) 40 mg DAILY PO Last administered on 04/23/17 08 :34; Start 04/23/17 at 09:00 Venlafaxine HCl (Effexor Xr) 75 mg DAILY PO Last administered on 04/23/17 08: 34; Start 04/23/17 at 09:00 Metoprolol Succinate (Toprol Xl) 25 mg DAILY PO Last administered on 04/23/17 08:34; Start 04/23/17 at 09:00 Furosemide (Lasix Inj) 20 mg ONCE ONCE IV PUSH Last administered on 04/22/17 16:23; Start 04/22/17 at 15:00; Stop 04/22/17 at 15:01; Status DC Polyethylene Glycol/ Electrolytes (Colyte Liq) 4,000 ml ONCE ONCE PO Last administered on 04/23/17 18:25; Start 04/23/17 at 17:00; Stop 04/23/17 at 17:01 ; Status DC Propofol (Diprivan 200 Mg/20 ml Inj) 400 mg STK-MED ONCE .ROUTE ; Start at 09:21; Stop 04/24/17 at 09:22; Status DC Lactated Ringer's 1,000 ml @ 0 mls/hr Q0M ONCE IV Last administered on 10:01; Start 04/24/17 at 09:59; Stop 04/24/17 at 10:01; Status DC Miscellaneous Information ALL NURSING DEPARTME... UNSCH PRN .XX SEE LABEL COMMENTS; Start 04/24/17 at 10:22; Stop 04/25/17 at 10:21 A/P Assessment and Plan A/P - anemia- acute on chronic- possibly due to GI blood loss-patient on eliquis and plavix- with recent EGD which showed antral superficial ulcer transfused with two units of PRBC with improved H/H- continue PPI- GI and hematology consult appreciated. s/p EGD and colonoscopy with : Mild gastritis,Colonic AVM,Severe sigmoid diverticulosis and Mild to moderate internal and external hemorrhoids will consider capsule endoscopy if anemia persists. ok to resume anticoagulation per GI. 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 -CAD- s/p stent placement; resume BB- resume plavix and eliquis as noted above -atrial fibrillation- s/p pacemaker placement; resume BB- resume anticoagulation cardiology consult appreciated. -chronic renal insufficiency- will monitor -dyslipidemia/hypothyroidism; resumed home meds -DVT prophylaxis with SCD's and home anticoagulation therapy. Discharge Planning possible dc home in am if stable. Dmitry Shaffer MD Apr 24, 2017 13:10
[2017-04-24] MEDS: ATORVASTATIN 40 MG TAB PO SCH (13:13)
[2017-04-24] MEDS: VENLAFAXINE HCL XR 75 MG CAP PO SCH (13:13)
[2017-04-24] MEDS: PANTOPRAZOLE SOD 40 MG DELAYED RELEASE TAB PO SCH (13:13)
[2017-04-24] MEDS: METOPROLOL SUCCINATE 25 MG EXTENDED RELEASE TAB PO SCH (13:13)
[2017-04-24 16:00] VITALS: BP 181/73; PULSE 60; RESP 18; TEMP 97.9; O2SAT 100
[2017-04-24] MEDS: CLOPIDOGREL 75 MG TAB PO SCH (16:07)
[2017-04-24] MEDS: APIXABAN 2.5 MG TABLET PO SCH ×2 (16:07→21:29)
--- NOTE | 2017-04-24 18:28 | PD.ONC.PN ---
Subjective Subjective Remarks Ms. Fu is s/p EGD and colonoscopy today. She reports that she is feeling improved since blood transfusion. Objective Data Date Time Temp Pulse Resp B/P (MAP) Pulse Ox O2 Delivery O2 Flow Rate FiO2 04/24/17 16:00 97.9 60 18 181/73 (109) 100 04/24/17 12:00 97.1 60 16 140/62 (88) 100 04/24/17 10:56 60 16 145/70 (95) 100 04/24/17 10:29 97.7 62 16 143/65 (91) 100 04/24/17 08:00 98.2 63 16 164/70 (101) 98 04/24/17 04:00 97.9 62 20 165/69 (101) 98 04/24/17 00:00 97.2 62 16 153/67 (95) 100 04/23/17 20:00 97.3 87 16 157/70 (99) 99 04/24/17 04/24/17 04/24/17 07:00 15:00 23:00 Intake Total 360 ml 750 ml Balance 360 ml 750 ml Result Diagram: 04/24/17 0702 04/23/17 0618 Laboratory Results Laboratory Tests Test 04/24/17 07:02 Hemoglobin 8.9 GM/DL Hematocrit 26.5 % Administered Medications Medications (Trade) Dose Ordered Sig/Barbie Route PRN Reason Start Time Stop Time Status Last Admin Dose Admin Levothyroxine Sodium (Synthroid) 125 mcg DAILY@0600 PO 04/23/17 06:00 04/24/17 05:43 Pantoprazole Sodium (Protonix) 40 mg DAILY PO 04/23/17 09:00 04/24/17 13:13 Atorvastatin Calcium (Lipitor) 40 mg DAILY PO 04/23/17 09:00 04/24/17 13:13 Venlafaxine HCl (Effexor Xr) 75 mg DAILY PO 04/23/17 09:00 04/24/17 13:13 Metoprolol Succinate (Toprol Xl) 25 mg DAILY PO 04/23/17 09:00 04/24/17 13:13 Apixaban (Eliquis) 2.5 mg BID PO 04/24/17 14:30 04/24/17 16:07 Clopidogrel Bisulfate (Plavix) 75 mg DAILY PO 04/24/17 14:30 04/24/17 16:07 Objective Remarks GENERAL: Well-nourished, well-developed patient, appears stated age SKIN: Warm and dry. HEAD: Normocephalic. EYES: No scleral icterus. No injection or drainage. RESPIRATORY: No respiratory distress NEUROLOGICAL: No obvious focal deficit. Awake, alert, and oriented x3. PSYCHIATRIC: Appropriate mood and affect; insight and judgment normal. Assessment/Plan Assessment 1. Anemia: acute on chronic. Chronic anemia multifactorial due to iron deficiency from presumed GI blood loss, renal insufficiency. Acute drop most likely secondary to acute blood loss from presumed slow GIB exacerbated by anticoagulation and antiplatelet therapy. S/p EGD and colonoscopy which revealed gastritis, erythema in the antrum of the stomach, colonic AVM s/p cautery, diverticulitis, internal and external hemorroids. 2. Cardiac: atrial fibrillation on apixaban and CAD s/p stenting on antiplatelet therapy. Cardiology team following. 3. Macrocytosis: B12, folate previously WNL. Will not recheck as results will be skewed by transfused blood. Possible component of reticulocytosis given elevated retic count. Macrocytic cells also seen with underlying bone marrow disorder. WBC and platelet count WNL. She will follow closely with primary seamer Dr. Parker. If does not improve could consider bone marrow biopsy as outpatient. Inpatient hematology service will sign off at this time. Please call with further questions or concerns. Kenzie Paz MD Apr 24, 2017 18:28
[2017-04-24 20:00] VITALS: BP 158/71; PULSE 64; RESP 16; TEMP 98.3; O2SAT 99
[2017-04-25 01:05] VITALS: BP 160/69; PULSE 69; RESP 19; TEMP 98.6; O2SAT 99
[2017-04-25 04:00] VITALS: BP 159/70; PULSE 64; RESP 20; TEMP 98.3; O2SAT 98
[2017-04-25] MEDS: LEVOTHYROXINE SODIUM 125 MCG TAB PO SCH (06:05)
[2017-04-25 08:00] VITALS: BP 160/65; PULSE 71; RESP 18; TEMP 98; O2SAT 100
[2017-04-25 08:05] LABS: HEMATOCRIT 25.9 % (35.0-46.0); MEAN CELL VOLUME 94.2 FL (80.0-100.0); MEAN CORPUSCULAR HEMOGLOBIN 30.5 PG (27.0-34.0); MEAN CORPUSCULAR HGB CONC 32.4 % (32.0-36.0); PLATELET COUNT 342 TH/MM3 (150-450); RED BLOOD COUNT 2.75 MIL/MM3 (4.00-5.30); REVIEW FLAG FINAL; WHITE BLOOD COUNT 8.1 TH/MM3 (4.0-11.0)
[2017-04-25] MEDS: APIXABAN 2.5 MG TABLET PO SCH (09:50)
[2017-04-25] MEDS: METOPROLOL SUCCINATE 25 MG EXTENDED RELEASE TAB PO SCH (09:50)
[2017-04-25] MEDS: VENLAFAXINE HCL XR 75 MG CAP PO SCH (09:50)
[2017-04-25] MEDS: CLOPIDOGREL 75 MG TAB PO SCH (09:51)
[2017-04-25] MEDS: ATORVASTATIN 40 MG TAB PO SCH (09:51)
[2017-04-25] MEDS: PANTOPRAZOLE SOD 40 MG DELAYED RELEASE TAB PO SCH (09:51)
--- NOTE | 2017-04-25 11:44 | HHI.PR ---
Subjective Remarks resting comfortably with no distress. denies pain. no sob or dizziness. no obvious GI bleed. wants to go home today. Objective Vitals Vital Signs Date Time Temp Pulse Resp B/P (MAP) Pulse Ox O2 Delivery O2 Flow Rate FiO2 04/25/17 08:00 98.0 71 18 160/65 (96) 100 04/25/17 04:00 Room Air 04/25/17 04:00 98.3 64 20 159/70 (99) 98 04/25/17 01:05 98.6 69 19 160/69 (99) 99 04/25/17 00:00 Room Air 04/24/17 20:00 98.3 64 16 158/71 (100) 99 04/24/17 20:00 Room Air 04/24/17 16:00 97.9 60 18 181/73 (109) 100 04/24/17 12:00 97.1 60 16 140/62 (88) 100 I/O 04/24/17 04/24/17 04/24/17 04/25/17 04/25/17 04/25/17 07:00 15:00 23:00 07:00 15:00 23:00 Intake Total 360 ml 750 ml 960 ml 360 ml Balance 360 ml 750 ml 960 ml 360 ml Intake Oral 360 ml 960 ml 360 ml IV Total 50 ml Other 700 ml # Voids 3 3 2 # Bowel Movements 0 Result Diagram: 04/25/17 0550 04/23/17 0618 Objective Remarks GENERAL: This is a well-nourished, well-developed patient, in no apparent distress. CARDIOVASCULAR: Regular rate and regular rhythm without murmurs, gallops, or rubs. RESPIRATORY: Clear to auscultation. Breath sounds equal bilaterally. No wheezes , rales, or rhonchi. GASTROINTESTINAL: Abdomen soft, non-tender, nondistended. Normal, active bowel sounds MUSCULOSKELETAL: Extremities without clubbing, cyanosis, or edema. NEURO: Alert & Oriented x4 to person, place, time, situation. Moves all ext x4 Procedures EGD/ colonoscopy Medications and IVs Current Medications Sodium Chloride 250 ml @ 15 mls/hr ONCE ONCE IV Last administered on t 14:20; Start 04/22/17 at 12:30; Stop 04/23/17 at 05:09; Status DC Levothyroxine Sodium (Synthroid) 125 mcg DAILY@0600 PO Last administered on 06:05; Start 04/23/17 at 06:00 Pantoprazole Sodium (Protonix) 40 mg DAILY PO Last administered on 04/25/17 09 :51; Start 04/23/17 at 09:00 Patient Own Medication PT OWN MED: RESTASIS (CYCLOSPORI... BID EACH EYE ; Start 04/22/17 at 21:00; Status Future Hold Atorvastatin Calcium (Lipitor) 40 mg DAILY PO Last administered on 04/25/17 09 :51; Start 04/23/17 at 09:00 Venlafaxine HCl (Effexor Xr) 75 mg DAILY PO Last administered on 04/25/17 09: 50; Start 04/23/17 at 09:00 Metoprolol Succinate (Toprol Xl) 25 mg DAILY PO Last administered on 04/25/17 09:50; Start 04/23/17 at 09:00 Furosemide (Lasix Inj) 20 mg ONCE ONCE IV PUSH Last administered on 04/22/17 16:23; Start 04/22/17 at 15:00; Stop 04/22/17 at 15:01; Status DC Polyethylene Glycol/ Electrolytes (Colyte Liq) 4,000 ml ONCE ONCE PO Last administered on 04/23/17 18:25; Start 04/23/17 at 17:00; Stop 04/23/17 at 17:01 ; Status DC Propofol (Diprivan 200 Mg/20 ml Inj) 400 mg STK-MED ONCE .ROUTE ; Start at 09:21; Stop 04/24/17 at 09:22; Status DC Lactated Ringer's 1,000 ml @ 0 mls/hr Q0M ONCE IV Last administered on 10:01; Start 04/24/17 at 09:59; Stop 04/24/17 at 10:01; Status DC Miscellaneous Information ALL NURSING DEPARTME... UNSCH PRN .XX SEE LABEL COMMENTS; Start 04/24/17 at 10:22; Stop 04/25/17 at 10:21; Status DC Apixaban (Eliquis) 2.5 mg BID PO Last administered on 04/25/17 09:50; Start at 14:30 Clopidogrel Bisulfate (Plavix) 75 mg DAILY PO Last administered on 04/25/17t 09 :51; Start 04/24/17 at 14:30 A/P Assessment and Plan A/P - anemia- acute on chronic- possibly due to GI blood loss-patient on eliquis and plavix- with recent EGD which showed antral superficial ulcer transfused with two units of PRBC with improved H/H- continue PPI- GI and hematology consult appreciated. s/p EGD and colonoscopy with : Mild gastritis,Colonic AVM,Severe sigmoid diverticulosis and Mild to moderate internal and external hemorrhoids will consider capsule endoscopy if anemia persists. ok to resume anticoagulation per GI. previously d/w hematology; no further inpatient hematology work-up; will have outpatient f/u with her family day care provider. -CAD- s/p stent placement; resumed BB- resumed plavix and eliquis as noted above -atrial fibrillation- s/p pacemaker placement; resumed BB- resumed anticoagulation cardiology consult appreciated. -chronic renal insufficiency- f/u as outpatient. -dyslipidemia/hypothyroidism; resumed home meds -DVT prophylaxis with SCD's and home anticoagulation therapy. Discharge Planning dc home today with f/u by pcp,GI,hematology and cardiology. see med list. d/w the patient. Dmitry Shaffer MD Apr 25, 2017 11:44
--- NOTE | 2017-04-25 11:45 | HHI.DS ---
Discharge Summary Admission Date Apr 22, 2017 at 12:22 Discharge Date: Apr 25, 2017 Admitting Diagnosis anemia (1) Anemia ICD Code: D64.9 - Anemia, unspecified Diagnosis: Principal Status: Acute Procedures EGD/ colonoscopy Brief History - From Admission patient is a 87 y/o female with history of CAD- s/p stent placement, atrial fibrillation, on plavix and eliquis, CKD, chronic anemia , was sent to ER by her PCP because of anemia. she says that she has chronic anemia and she's being followed up by . she was recently admitted to this hospital after she fell. she had GI evaluation during that admission including EGD during which she was found to have esophagitis,duodenitis and antral superficial ulcer. she says that she's been getting tired easily recently with on and off lightheadedness. she denies any chest pain, sob,abdominal pain. she denies any rectal bleed. she has some dark stool which she relates to taking iron supplement. CBC/BMP: 04/25/17 0550 04/23/17 0618 Significant Findings Laboratory Tests Test 04/23/17 00:21 04/23/17 06:18 04/24/17 07:02 04/25/17 05:50 Hemoglobin 8.7 GM/DL (11.6-15.3) 8.7 GM/DL (11.6-15.3) 8.9 GM/DL (11.6-15.3) 8.4 GM/DL (11.6-15.3) Hematocrit 26.3 % (35.0-46.0) 26.2 % (35.0-46.0) 26.5 % (35.0-46.0) 25.9 % (35.0-46.0) Red Blood Count 2.77 MIL/MM3 (4.00-5.30) 2.75 MIL/MM3 (4.00-5.30) Red Cell Distribution Width 22.6 % (11.6-17.2) 20.0 % (11.6-17.2) Neutrophils (%) (Auto) 75.0 % (16.0-70.0) Blood Urea Nitrogen 35 MG/DL (7-18) Creatinine 1.55 MG/DL (0.50-1.00) Calcium Level 7.6 MG/DL (8.5-10.1) Estimat Glomerular Filtration Rate 32 ML/MIN (>89) PE at Discharge GENERAL: This is a well-nourished, well-developed patient, in no apparent distress. CARDIOVASCULAR: Regular rate and regular rhythm without murmurs, gallops, or rubs. RESPIRATORY: Clear to auscultation. Breath sounds equal bilaterally. No wheezes , rales, or rhonchi. GASTROINTESTINAL: Abdomen soft, non-tender, nondistended. Normal, active bowel sounds MUSCULOSKELETAL: Extremities without clubbing, cyanosis, or edema. NEURO: Alert & Oriented x4 to person, place, time, situation. Moves all ext x4 Hospital Course - anemia- acute on chronic- possibly due to GI blood loss-patient on eliquis and plavix- with recent EGD which showed antral superficial ulcer transfused with two units of PRBC with improved H/H- continue PPI- GI and hematology consult appreciated. s/p EGD and colonoscopy with : Mild gastritis,Colonic AVM,Severe sigmoid diverticulosis and Mild to moderate internal and external hemorrhoids will consider capsule endoscopy if anemia persists. ok to resume anticoagulation per GI. previously d/w hematology; no further inpatient hematology work-up; will have outpatient f/u with her philosophy faculty member. -CAD- s/p stent placement; resumed BB- resumed plavix and eliquis as noted above -atrial fibrillation- s/p pacemaker placement; resumed BB- resumed anticoagulation cardiology consult appreciated. -chronic renal insufficiency- f/u as outpatient. -dyslipidemia/hypothyroidism; resumed home meds -DVT prophylaxis with SCD's and home anticoagulation therapy. Pt Condition on Discharge: Good Discharge Disposition: Discharge Home Discharge Time: <= 30 minutes Discharge Instructions DIET: Follow Instructions for: Heart Healthy Diet Activities you can perform: Regular-No Restrictions Follow up Referrals: Cardiology Gastroenterology Oncology PCP Follow-up Continued Medications: Apixaban (Eliquis) 2.5 Mg Tab 2.5 MG PO BID for Blood Clot Prevention, #60 TAB 0 Refills Clopidogrel (Plavix) 75 Mg Tab 75 MG PO DAILY for Blood Clot Prevention, #30 TAB 0 Refills Cyclosporine Opth 0.05% (Restasis Opth 0.05%) 0.05% Emul 1 DROP EACH EYE BID for Dry Eye, #1 BOX 0 Refills Ferrous Sulfate (Iron) 325 Mg Cap 325 MG PO DAILY for Nutritional Supplement, #30 TAB 0 Refills Lactobacillus Acidophilus (Probiotic) 1 Cap Cap 1 CAP PO DAILY for Nutritional Supplement, #90 CAP 0 Refills Levothyroxine (Levothyroxine) 125 Mcg Tab 125 MCG PO DAILY for Thyroid, #30 TAB 0 Refills Metoprolol Succinate ER 24 HR (Metoprolol Succinate ER 24 HR) 25 Mg Tab 25 MG PO DAILY, #30 TAB 0 Refills Pantoprazole (Pantoprazole) 40 Mg Tab 40 MG PO DAILY for PUD, #30 TAB Rosuvastatin (Crestor) 20 Mg Tab 20 MG PO DAILY for Cholesterol Management, #30 TAB 0 Refills Venlafaxine (Effexor) 75 Mg Tab 75 MG PO DAILY, #30 TAB 0 Refills Dmitry Shaffer MD Apr 25, 2017 11:45
[2017-04-25 12:00] VITALS: BP 184/94; PULSE 72; RESP 18; TEMP 97.5; O2SAT 100
--- NOTE | 2017-04-26 13:54 | EKG ---
Date Performed: 04/24/2017 Time Performed: 04:26:30 PTAGE: 87 years EKG: Sinus rhythm with borderline 1st degree A-V block Probable ventricular pacing and there also may be some atrial p acing versus sinus rhythm with ventricular pacing Compared to previous tracing, prior tracing showed clear atrial and ventricular pacing. This tracing shows ventricular pacing with atrial rhythm and con duction Abnormal ECG PREVIOUS TRACING : 03/02/2017 21.19 DOCTOR: Bradley Villasenor Interpretating Date/Time 04/26/2017 13:53:49
== END 2017-04-25 13:22 | disposition home or self-care (01) | DRG 812 ==
LOC: NEPE 10:37 → NEDA 12:22 → N04A 13:13
PROVIDERS: ADMIT Internal Medicine; ATTEND Internal Medicine
PROC: 30233N1 Transfusion of Nonautologous Red Blood Cells into Peripheral Vein, Percutaneous Approach (ICD-10-PCS; principal; 2017-04-22)
PROC: 0D5M8ZZ Destruction of Descending Colon, Via Natural or Artificial Opening Endoscopic (ICD-10-PCS; 2017-04-24)
PROC: 0DJ08ZZ Inspection of Upper Intestinal Tract, Via Natural or Artificial Opening Endoscopic (ICD-10-PCS; 2017-04-24 09:45)
DX: D50.0 Iron deficiency anemia secondary to blood loss (chronic) (principal); I48.91 Unspecified atrial fibrillation; I12.9 Hypertensive chronic kidney disease with stage 1 through stage 4 chronic kidney disease, or unspecified chronic kidney disease; D63.1 Anemia in chronic kidney disease; D63.8 Anemia in other chronic diseases classified elsewhere; E03.9 Hypothyroidism, unspecified; K57.30 Diverticulosis of large intestine without perforation or abscess without bleeding; K55.20 Angiodysplasia of colon without hemorrhage; K29.70 Gastritis, unspecified, without bleeding; N18.9 Chronic kidney disease, unspecified; I25.10 Atherosclerotic heart disease of native coronary artery without angina pectoris; K64.8 Other hemorrhoids; Z79.82 Long term (current) use of aspirin; Z79.02 Long term (current) use of antithrombotics/antiplatelets; I25.2 Old myocardial infarction; Z95.5 Presence of coronary angioplasty implant and graft; Z86.73 Personal history of transient ischemic attack (TIA), and cerebral infarction without residual deficits; Z95.0 Presence of cardiac pacemaker
CPT/HCPCS: 36430; 76937; 80048; 80053; 83010; 83615; 85014; 85018; 85025; 85027; 85044; 85060; 85610; 85730; 86850; 86900; 86901; 86920; 93005; 99285; G0378; J1940; J7050; J7120; P9016